=== PATIENT | female | born 1935 | race Caucasian/White ===

== ENCOUNTER → 2018-12-16 10:41 | Outpatient (CLI) | payer MEDICARE, OTHER, SELFPAY | PROVIDERS: PCP Nurse Practitioner Family; Visit Provider Nurse Practitioner Family | DX: R20.0 Anesthesia of skin (principal) | CPT/HCPCS: 95885; 95886; 95910 ==

== ENCOUNTER 2018-12-25 12:46 | Emergency (ER) | payer MEDICARE, SELFPAY ==
[2018-12-25 12:50] VITALS: BP 159/67; PULSE 78; RESP 16; TEMP 36.6; O2SAT 100
--- NOTE | 2018-12-25 13:26 | ED_ITS ---
HPI - Headache General Chief Complaint: Headache Stated Complaint: NUMBNESS IN LEGS/PRESSURE IN HEAD Time Seen by Provider: 12/25/18 13:03 Source: patient Mode of arrival: ambulatory Limitations: no limitations History of Present Illness HPI Narrative: Patient is an 82-year-old female who presents with a variety of complaints. She has had ongoing numbness in both of her legs for about 4 months. She saw neurologist 3 days ago who ordered an MRI which she is not sure when it scheduled. She was raking in the ER today she feels like the numbness in her right leg is worse. She has no weakness. She also has pressure on the right side of her head no actual pain. No visual difficulties no rash no weakness in her arms. Related Data Allergies Allergy/AdvReac Type Severity Reaction Status Date / Time [id number]-[id number]-Zwu Reductase AdvReac Intermediate Muscle Pain Verified 12/25/18 12:57 Inhibitor Review of Systems Review of Systems GENERAL: Denies chills, fatigue, malaise, fever, sweats, travel HEENT: Denies sinus pain, ear pain, sore throat, difficulty swallowing, neck pain RESPIRATORY: Denies dyspnea, cough, wheezing, hemoptysis, sputum. CARDIOVASCULAR: Denies chest pain, palpitations, orthopnea, edema GASTROINTESTINAL: Denies nausea, vomiting, abdominal pain, diarrhea, constipation, melena. : Denies dysuria, frequency, incontinence, hematuria, urinary retention, flank pain. MUSCULOSKELETAL: Denies weakness, joint pain, or bony pain SKIN: No rash, no erythema, no pruritus NEUROLOGIC: See HPI PSYCHIATRIC: No concerning psychosocial issues. 12 point review of systems is negative except for those stated above and HPI [facility] Medical History Leg numbness (Acute) Social History Smoking Status: Never smoker Social History Smoking Status: Never smoker Exam Initial Vital Signs Initial Vital Signs: Vital Signs Temperature 97.8 F 12/25/18 12:50 Pulse Rate 78 12/25/18 12:50 Respiratory Rate 16 12/25/18 12:50 Blood Pressure 159/67 H 12/25/18 12:50 Pulse Oximetry 100 12/25/18 12:50 GENERAL: Well-appearing, well-nourished and in no acute distress. HEENT: Head atraumatic, no rash no vesicles, EOMI, pupils reactive, face symmetric, moist mucous membranes CARDIOVASCULAR: Regular rate and rhythm without murmurs, rubs or gallops. RESPIRATORY: Breath sounds equal bilaterally, no wheezes rales or rhonchi. ABDOMEN: Soft, nontender. Normoactive bowel sounds all 4 quadrants. No guarding or rebound. EXTREMITIES: Normal range of motion, no clubbing or edema. Neurovascularly intact NEUROLOGICAL: Alert and oriented x4.Normal gait and speech. Cranial nerves II through XII grossly intact. Loan Originator strength equal bilaterally lower extremity strength equal. Some slight decreased sensation in her right leg SKIN: Warm, dry, no laceration, no petechiae, no rashes or lesions. Course Vital Signs - 8 hr 12/25/18 12:50 Temperature 97.8 F Pulse Rate 78 Respiratory Rate 16 Blood Pressure 159/67 H Pulse Oximetry 100 MDM - Headache MDM Narrative Medical decision making narrative: Patient offered head CT today. However she declined. Her symptoms seem to be chronic. Offered prednisone for neuropathy she declined that as well. She is going to wait for her MRI. At this time patient feels like she can go home. Discharge Plan Departure Patient Disposition: Home Clinical Impression: Neuropathy Discharge Date/Time: 12/25/18 13:39 Interventions: ED Discharge Assessment Last Done: 12/25/18 13:38 Instructions: Peripheral Neuropathy Activity Restrictions/Additional Instructions: *You have been diagnosed with neuropathy *What to do: At this time he likely need an outpatient MRI of her lumbar spine, your lower back, to evaluate the numbness in your legs. What for rash in your scalp. What you are feeling may be a precursor to shingles *Continue to take medications as directed \ *Follow up with your primary care provider in 2-3 days *Return to ER if you should have weakness in your extremities rash increased pain blurry vision difficulty speaking difficulty walking or any new, worsening or concerning symptoms Referrals: Cynthia Fuentes ARNP [Primary Care Provider] -
== END 2018-12-25 13:39 | disposition home or self-care (01) ==
PROVIDERS: Emergency Provider Emergency Medicine; PCP Nurse Practitioner Family
DX: G62.9 Polyneuropathy, unspecified (principal)
CPT/HCPCS: 99282

== ENCOUNTER → 2019-01-03 14:11 | Outpatient (CLI) | payer MEDICARE, SELFPAY ==
--- NOTE | 2019-01-03 | DI.MRI.S_ITS ---
PROCEDURE: MR LUMBAR SPINE WO CON INDICATIONS: Lumbar Radiculopathy TECHNIQUE: Noncontrast sagittal T1 spin echo and T2 fast echo, sagittal STIR, axial T1 and T2 fast spin echo through the lumbar spine. In cases with scoliosis, additional coronal T2 fast spin echo may be performed. COMPARISON: None. FINDINGS: Image quality: Mild artifact is noted at several levels including L5-S1. Alignment and Curvature: There is trace retrolisthesis of L1 on L2, L2 on L3, grade 1 anterolisthesis of L3 on L4 and trace anterolisthesis of L4 on L5. Schmorl's node in the superior endplate of L5 is noted with mild reactive change. Similar appearance is noted in the superior endplate of S1. Bone Marrow: Marrow is of normal overall signal. No acute vertebral body compression fractures. Spinal Cord: Conus medullaris terminates at the L2 level. Visualized cord demonstrates normal signal and size. Paraspinous Soft Tissues: No paravertebral masses. Discs: Severe desiccation is present at L4-5, mild to moderate remainder of the lumbar spine. L1-L2: Minimal disc bulge without spinal stenosis or foraminal narrowing. L2-L3: Mild disc bulge including a left foraminal component. No spinal stenosis. No foraminal narrowing. Mild facet and ligamentum flavum hypertrophy. L3-L4: Minimal disc bulge without spinal stenosis. Minimal left foraminal narrowing with facet and ligamentum flavum hypertrophy. L4-L5: Minimal disc bulge without spinal stenosis. Moderate left foraminal narrowing with facet and ligamentum flavum hypertrophy. L5-S1: Minimal disc bulge without spinal stenosis. Moderate to severe right foraminal narrowing with facet hypertrophy. IMPRESSION: 1. Foraminal narrowing is noted most prominent at L4-5 and L5-S1 secondary to anterolisthesis as well as facet arthropathy. 2. Multilevel minimal to mild disc bulges. No spinal stenosis. Dictated by: Shamika Mccarty M.D. on 01/03/2019 at 16:56 Approved by: Shamika Mccarty M.D. on 01/03/2019 at 17:01
== END ==
PROVIDERS: PCP Nurse Practitioner Family; Visit Provider Psychiatry & Neurology Neurology
DX: M54.16 Radiculopathy, lumbar region (principal); M47.816 Spondylosis without myelopathy or radiculopathy, lumbar region; M47.817 Spondylosis without myelopathy or radiculopathy, lumbosacral region; M48.061 Spinal stenosis, lumbar region without neurogenic claudication; M48.07 Spinal stenosis, lumbosacral region; M43.16 Spondylolisthesis, lumbar region
CPT/HCPCS: 72148

== ENCOUNTER → 2019-12-26 14:17 | Outpatient (CLI) | payer MEDICARE, SELFPAY | PROVIDERS: PCP Internal Medicine; Referring Provider Internal Medicine; Visit Provider Internal Medicine | DX: M81.0 Age-related osteoporosis without current pathological fracture (principal); Z78.0 Asymptomatic menopausal state; Z85.3 Personal history of malignant neoplasm of breast | CPT/HCPCS: 77080 ==

== ENCOUNTER → 2020-06-02 09:13 | Outpatient (CLI) | payer MEDICARE, SELFPAY ==
[2020-06-02 09:42] LABS: COVID19 -Nasal RAPID Negative (Negative)
== END ==
PROVIDERS: PCP Internal Medicine; Visit Provider Nurse Practitioner
DX: R09.81 Nasal congestion (principal); R53.81 Other malaise; R53.83 Other fatigue
CPT/HCPCS: 87635

== ENCOUNTER 2020-06-07 09:38 | Emergency (ER) | payer MEDICARE, SELFPAY ==
[2020-06-07] VITALS (21 sets, daily range): BP systolic 107–149; BP diastolic 55–75; PULSE 48–78; RESP 16–18; TEMP 37.1; O2SAT 84–100; BMI 20.5
--- NOTE | 2020-06-07 09:57 | ED.HA ---
HPI - Headache General Chief Complaint: Headache Stated Complaint: 2 weeks, swelling/body aches/headache Time Seen by Provider: 06/07/20 09:49 Source: patient and family Mode of arrival: Ambulatory Limitations: no limitations History of Present Illness HPI Narrative: Who presents with confusion and headache. She is here with her daughter. Daughter states she lives by herself and is usually quite sharp over the last few days there been a definite increase in confusion. The patient describes ?booming headache off and on for about 2 weeks. It is scattered all over her head. It is controlled with Tylenol and ibuprofen. She denies any sensitivity to light no visual changes no nausea or vomiting. No neck pain. She has also had some very mild low-grade fever of 100.2 she denies any neck pain. She also complains of extreme fatigue. She had a COVID-19 test 5 days ago which was negative. MD Complaint: headache Onset (ago): week(s) (2) Severity: moderate Quality: aching and throbbing Relieving factors: nothing and NSAIDs Related Data Home Medications Medication Instructions Recorded Confirmed No Known Home Medications 06/02/20 06/02/20 Allergies Allergy/AdvReac Type Severity Reaction Status Date / Time Izdykxg-Tgw-Yyi Reductase AdvReac Intermediate Muscle Pain Verified 06/07/20 09:53 Inhibitor Review of Systems Review of Systems ROS Unobtainable: All systems reviewed & are unremarkable except as noted in HPI and below Constitutional Constitutional: Reports as per HPI, Reports body ache(s), Reports fatigue, Reports fever(s), Reports headache(s) and Reports poor appetite Eyes Eyes: Denies change in vision, Denies eye discharge, Denies irritation and Denies loss of vision ENT Ears, Nose, Mouth, and Throat: Denies vertigo, Denies dizziness and Reports headache(s) Cardiovascular Cardiovascular: Denies chest pain, Denies dyspnea and Denies dyspnea on exertion Respiratory Respiratory: Denies cough, Denies dyspnea, Denies dyspnea on exertion and Denies wheezing Gastrointestinal Gastrointestinal: Denies abdominal pain, Denies change in bowel habits, Denies diarrhea, Denies nausea and Denies vomiting Musculoskeletal Musculoskeletal: Denies back pain, Reports myalgias, Denies arthralgias and Denies numbness Integumentary/Breasts Skin/Breast: Denies pruritus, Denies erythema, Denies rash and Denies wounds Neurologic Neurologic: Denies vertigo, Denies dizziness, Reports headache(s), Denies loss of vision and Denies numbness Endocrine Endocrine: Reports fatigue Allergic/Immunologic Allergic/Immunologic: Denies wheezing Patient History Medical History (Updated 06/07/20 @ 16:39 by Carmita Butterfield DO) Leg numbness Social History Smoking Status: Never smoker Smoking Status: Never smoker alcohol intake frequency: 0-2 drinks per day Substance Use Type: does not use Exam Initial Vital Signs Initial Vital Signs: Vital Signs Pulse Rate 73 06/07/20 09:49 Pulse Oximetry 98 06/07/20 09:49 GENERAL: Pleasant alert 84-year-old female and in [no acute] distress. HEENT: Head atraumatic,EOMI, pupils reactive, face symmetric, [moist] mucous membranes NECK: Negative Kernig and Brudzinski's no meningeal signs CARDIOVASCULAR: Regular rate and rhythm without murmurs, rubs or gallops. RESPIRATORY: Breath sounds equal bilaterally, no wheezes rales or rhonchi. ABDOMEN: Soft, nontender. Normoactive bowel sounds all 4 quadrants. No guarding or rebound. EXTREMITIES: Normal range of motion, no clubbing or edema. Neurovascularly intact NEUROLOGICAL: Alert and oriented x3.Normal gait and speech. Cranial nerves II through XII grossly intact. Turner In strength equal bilaterally. Patient does seem to be confused about some things and refers to her daughter frequently during questioning SKIN: Warm, dry, no laceration, no petechiae, no rashes or lesions. Procedures Lumbar Puncture Time Out Performed: Yes Patient Position: upright Skin Prep: Povidone-Iodine 1% and 0.5% Chlorhexidine/Alcohol Local Anesthetic: lidocaine 1% Amount of anesthesia used (mL): 3 Spinal Needle Gauge: 22G Interspace Used: L4-L5 Fluid Initially Obtained: clear Complications: none Scores NIH Stroke Scale Level of Conciousness: Alert, keenly responsive Ask month/age: Answers both questions correctly. Open/close eyes, close hand: Performs both tasks correctly Best gaze horizontal: Normal Visual garza: No visual loss Facial palsy: Normal symetrical movement Left arm drift: No drift for full 10 sec Right arm drift: No drift for full 10 sec Left leg drift: No drift for full 5 sec Right leg drift: No drift for full 5 sec Limb ataxia: Absent Sensory on face/arms/legs: Normal, no sensory loss Best language: No aphasia, normal Dysarthria: Normal Extinction or inattention: No abnormality Total NIH Stroke scale score: 0 Course Orders Ordered: ED Orders 06/07/20 10:28 COVID19 Stat 06/07/20 10:55 Urinalysis and Microscopic Stat Urine Culture Stat 06/07/20 11:36 Blood Culture Stat 06/07/20 15:00 CSF culture Stat Cell Count w Diff CSF Routine Cell Count w Diff CSF Stat Glucose CSF Stat Meningitis Panel (Film Array) Stat Total Protein CSF Stat Discontinued Medications Sodium Chloride (Normal Saline 0.9%) 1,000 mls @ 1,000 mls/hr IV CONT BABITA Last Infusion: 06/07/20 12:42 Dose: 0 mls/hr Documented by: Admin: 06/07/20 10:20 Dose: 1,000 mls/hr Documented by: SEVEN Ketorolac Tromethamine (Ketorolac 60 Mg/2 Ml Vial) 15 mg IV NOW ONE Stop: 06/07/20 11:53 Last Admin: 06/07/20 12:42 Dose: 15 mg Documented by: VANITA Vital Signs Vital signs: Vital Signs - 8 hr 06/07/20 11:30 06/07/20 12:00 06/07/20 12:30 Pulse Rate 63 62 Respiratory Rate Blood Pressure 112/59 L 124/61 Pulse Oximetry 99 100 100 06/07/20 14:16 06/07/20 14:17 06/07/20 14:30 Pulse Rate 48 L 56 L 56 L Respiratory Rate Blood Pressure 146/73 H 140/63 Pulse Oximetry 84 L 98 98 06/07/20 14:55 06/07/20 14:56 06/07/20 15:00 Pulse Rate 78 68 62 Respiratory Rate Blood Pressure 140/75 139/65 Pulse Oximetry 97 98 100 06/07/20 15:30 06/07/20 16:00 06/07/20 16:01 Pulse Rate 62 70 74 Respiratory Rate Blood Pressure 128/68 Pulse Oximetry 93 98 97 06/07/20 16:02 06/07/20 16:50 Pulse Rate 70 Respiratory Rate 16 Blood Pressure 149/67 H 149/67 H Pulse Oximetry 100 MDM - Headache Lab Data Attestation: I reviewed the patient's lab results. Result diagrams: 06/07/20 10:10 06/07/20 10:10 Labs: Lab Results 06/07/20 06/07/20 06/07/20 Range/Units 10:10 10:10 10:10 WBC 7.3 (4.5-11.0) X10^3/uL RBC 3.96 L (4.0-5.2) X10^6/uL Hgb 12.2 (12.0-16.0) g/dL Hct 36.5 (36-46) % MCV 92.1 (80-100) fL MCH 30.7 (26-34) PG MCHC 33.4 (30-36) % RDW 13.3 (11.6-14.8) % Plt Count 274 (150-400) X10^3/uL Neut % (Auto) 84.9 H (50-75) % Lymph % (Auto) 7.4 L (25-40) % [place] % (Auto) 5.7 (3-14) % Eos % (Auto) 1.8 L (2-4) % Baso % (Auto) 0.2 (0-2) % Neut # (Auto) 6200 (5928-6130) /uL Lymph # (Auto) 500 L (2111-2744) /uL [place] # (Auto) 400 (0-900) /uL Eos # (Auto) 100 (0-450) /uL Baso # (Auto) 0 (0-100) /uL Sodium 138 (137-145) mmol/L Potassium 4.8 (3.4-5.1) mmol/L Chloride 106 (98-107) mmol/L Carbon Dioxide 26 (22-32) mmol/L BUN 19 H (7-17) mg/dL Creatinine 0.98 (0.52-1.04) mg/dL Estimated GFR 54.1 L (>60) mL/min BUN/Creatinine Ratio 19.4 (6-22) Glucose 138 H (80-110) mg/dL Lactate (0.7-2.1) mmol/L Calcium 9.5 (8.4-10.2) mg/dL Total Bilirubin 0.4 (0.2-1.3) mg/dL AST 22 (14-36) IU/L ALT 19 (<35) IU/L Alkaline Phosphatase 81 (38-126) U/L Total Protein 6.7 (6.3-8.2) g/dL Albumin 3.8 (3.5-5.0) g/dL Globulin 2.9 (1.7-4.1) g/dL Albumin/Globulin Ratio 1.3 (1.0-2.8) Procalcitonin 0.23 (<0.5) ng/mL Urine Color Urine Appearance Urine pH (4.5-8.0) Ur Specific [place] (1.000-1.035) Urine Protein (Negative) Urine Glucose (UA) (Negative) g/dL Urine Ketones (NEGATIVE) Urine Occult Blood (Negative) Urine Nitrate (Negative) Urine Bilirubin (NEGATIVE) Urine Urobilinogen (0.2) E.U./dL Ur Leukocyte Esterase (NEGATIVE) Urine RBC (0-5/HPF) Urine WBC (0-5/HPF) Ur Squamous Epith Cells (0-5/HPF) Urine Bacteria (None) Hyaline Casts (None) Ur Culture Indicated? CSF Tube Number CSF Volume CSF Appearance (Clear) CSF Color (Colorless) CSF WBC (0-5) MONO/uL CSF RBC RBC /uL CSF Mononuclear WBCs % CSF Polynuclear WBCs % CSF Glucose (40-70) mg/dL CSF Total Protein (12-60) mg/dL CSF C.neoform/gat PCR (Not Detect) CSF CMV DNA (PCR) (Not Detect) CSF Enterovirus (PCR) (Not Detect) CSF E. coli (PCR) (Not Detect) CSF H. influenzae (PCR) (Not Detect) CSF HSV I (PCR) (Not Detect) CSF HSV II (PCR) (Not Detect) CSF HHV 6 (PCR) (Not Detect) CSF L.monocytogenes PCR (Not Detect) CSF N. meningitidis PCR (Not Detect) CSF Parechovirus (PCR) (Not Detect) CSF S. agalactiae (PCR) (Not Detect) CSF S. pneumoniae (PCR) (Not Detect) CSF VZV (PCR) (Not Detecte) SARS-CoV-2 (PCR) (Negative) 06/07/20 06/07/20 06/07/20 Range/Units 10:10 10:28 10:55 WBC (4.5-11.0) X10^3/uL RBC (4.0-5.2) X10^6/uL Hgb (12.0-16.0) g/dL Hct (36-46) % MCV (80-100) fL MCH (26-34) PG MCHC (30-36) % RDW (11.6-14.8) % Plt Count (150-400) X10^3/uL Neut % (Auto) (50-75) % Lymph % (Auto) (25-40) % [place] % (Auto) (3-14) % Eos % (Auto) (2-4) % Baso % (Auto) (0-2) % Neut # (Auto) (5852-8274) /uL Lymph # (Auto) (9785-9404) /uL [place] # (Auto) (0-900) /uL Eos # (Auto) (0-450) /uL Baso # (Auto) (0-100) /uL Sodium (137-145) mmol/L Potassium (3.4-5.1) mmol/L Chloride (98-107) mmol/L Carbon Dioxide (22-32) mmol/L BUN (7-17) mg/dL Creatinine (0.52-1.04) mg/dL Estimated GFR (>60) mL/min BUN/Creatinine Ratio (6-22) Glucose (80-110) mg/dL Lactate 1.9 (0.7-2.1) mmol/L Calcium (8.4-10.2) mg/dL Total Bilirubin (0.2-1.3) mg/dL AST (14-36) IU/L ALT (<35) IU/L Alkaline Phosphatase (38-126) U/L Total Protein (6.3-8.2) g/dL Albumin (3.5-5.0) g/dL Globulin (1.7-4.1) g/dL Albumin/Globulin Ratio (1.0-2.8) Procalcitonin (<0.5) ng/mL Urine Color Yellow Urine Appearance Clear Urine pH 5.0 (4.5-8.0) Ur Specific [place] 1.020 (1.000-1.035) Urine Protein Negative (Negative) Urine Glucose (UA) Negative (Negative) g/dL Urine Ketones Negative (NEGATIVE) Urine Occult Blood Negative (Negative) Urine Nitrate Negative (Negative) Urine Bilirubin Negative (NEGATIVE) Urine Urobilinogen 0.2 (0.2) E.U./dL Ur Leukocyte Esterase Trace H (NEGATIVE) Urine RBC None seen (0-5/HPF) Urine WBC 1-5/hpf (0-5/HPF) Ur Squamous Epith Cells 1-5 /hpf (0-5/HPF) Urine Bacteria Few (2-10) H (None) Hyaline Casts 1-5/lpf (None) Ur Culture Indicated? Specimen cultured CSF Tube Number CSF Volume CSF Appearance (Clear) CSF Color (Colorless) CSF WBC (0-5) MONO/uL CSF RBC RBC /uL CSF Mononuclear WBCs % CSF Polynuclear WBCs % CSF Glucose (40-70) mg/dL CSF Total Protein (12-60) mg/dL CSF C.neoform/gat PCR (Not Detect) CSF CMV DNA (PCR) (Not Detect) CSF Enterovirus (PCR) (Not Detect) CSF E. coli (PCR) (Not Detect) CSF H. influenzae (PCR) (Not Detect) CSF HSV I (PCR) (Not Detect) CSF HSV II (PCR) (Not Detect) CSF HHV 6 (PCR) (Not Detect) CSF L.monocytogenes PCR (Not Detect) CSF N. meningitidis PCR (Not Detect) CSF Parechovirus (PCR) (Not Detect) CSF S. agalactiae (PCR) (Not Detect) CSF S. pneumoniae (PCR) (Not Detect) CSF VZV (PCR) (Not Detecte) SARS-CoV-2 (PCR) Negative (Negative) 06/07/20 06/07/20 06/07/20 Range/Units 15:00 15:00 15:00 WBC (4.5-11.0) X10^3/uL RBC (4.0-5.2) X10^6/uL Hgb (12.0-16.0) g/dL Hct (36-46) % MCV (80-100) fL MCH (26-34) PG MCHC (30-36) % RDW (11.6-14.8) % Plt Count (150-400) X10^3/uL Neut % (Auto) (50-75) % Lymph % (Auto) (25-40) % [place] % (Auto) (3-14) % Eos % (Auto) (2-4) % Baso % (Auto) (0-2) % Neut # (Auto) (9938-4049) /uL Lymph # (Auto) (4191-5302) /uL [place] # (Auto) (0-900) /uL Eos # (Auto) (0-450) /uL Baso # (Auto) (0-100) /uL Sodium (137-145) mmol/L Potassium (3.4-5.1) mmol/L Chloride (98-107) mmol/L Carbon Dioxide (22-32) mmol/L BUN (7-17) mg/dL Creatinine (0.52-1.04) mg/dL Estimated GFR (>60) mL/min BUN/Creatinine Ratio (6-22) Glucose (80-110) mg/dL Lactate (0.7-2.1) mmol/L Calcium (8.4-10.2) mg/dL Total Bilirubin (0.2-1.3) mg/dL AST (14-36) IU/L ALT (<35) IU/L Alkaline Phosphatase (38-126) U/L Total Protein (6.3-8.2) g/dL Albumin (3.5-5.0) g/dL Globulin (1.7-4.1) g/dL Albumin/Globulin Ratio (1.0-2.8) Procalcitonin (<0.5) ng/mL Urine Color Urine Appearance Urine pH (4.5-8.0) Ur Specific [place] (1.000-1.035) Urine Protein (Negative) Urine Glucose (UA) (Negative) g/dL Urine Ketones (NEGATIVE) Urine Occult Blood (Negative) Urine Nitrate (Negative) Urine Bilirubin (NEGATIVE) Urine Urobilinogen (0.2) E.U./dL Ur Leukocyte Esterase (NEGATIVE) Urine RBC (0-5/HPF) Urine WBC (0-5/HPF) Ur Squamous Epith Cells (0-5/HPF) Urine Bacteria (None) Hyaline Casts (None) Ur Culture Indicated? CSF Tube Number 4 1 CSF Volume 1.0 ml 0.25 ml CSF Appearance Clear Clear (Clear) CSF Color Colorless Colorless (Colorless) CSF WBC 38 H 75 H (0-5) MONO/uL CSF RBC 0 30 RBC /uL CSF Mononuclear WBCs 83 89 % CSF Polynuclear WBCs 17 11 % CSF Glucose 49 (40-70) mg/dL CSF Total Protein 99 H (12-60) mg/dL CSF C.neoform/gat PCR Not detected (Not Detect) CSF CMV DNA (PCR) Not detected (Not Detect) CSF Enterovirus (PCR) Not detected (Not Detect) CSF E. coli (PCR) Not detected (Not Detect) CSF H. influenzae (PCR) Not detected (Not Detect) CSF HSV I (PCR) Not detected (Not Detect) CSF HSV II (PCR) Not detected (Not Detect) CSF HHV 6 (PCR) Not detected (Not Detect) CSF L.monocytogenes PCR Not detected (Not Detect) CSF N. meningitidis PCR Not detected (Not Detect) CSF Parechovirus (PCR) Not detected (Not Detect) CSF S. agalactiae (PCR) Not detected (Not Detect) CSF S. pneumoniae (PCR) Not detected (Not Detect) CSF VZV (PCR) Not detected (Not Detecte) SARS-CoV-2 (PCR) (Negative) Imaging Data Chest x-ray: Radiologist's Impression: PROCEDURE: XR CHEST 1V INDICATIONS: confusion fever TECHNIQUE: One view of the chest was acquired. COMPARISON: [facility], CT, CT HEAD/BRAIN WO CON, 06/07/2020, 10:52. [facility], , CHEST 2 VIEW, 01/13/2008, 15:46. FINDINGS: Surgical changes and devices: Left breast clips are seen. Lungs and pleura: Lungs are clear. No pleural effusions or pneumothorax. Mediastinum: The cardiac contours are within normal limits. The aorta demonstrates calcification and tortuosity. Bones and chest wall: No suspicious bony lesions. Age-appropriate bony degenerative changes are seen. Overlying soft tissues appear unremarkable. IMPRESSION: Portable chest within normal limits for age. Dictated by: David Cantrell M.D. on 06/07/2020 at 10:16 CT scan - head: Radiologist's Impression: PROCEDURE: CT HEAD/BRAIN WO CON INDICATIONS: confusion headache TECHNIQUE: Noncontrast 4.5 mm thick angled axial sections acquired from the foramen magnum to the vertex, with coronal and sagittal reformats. For radiation dose reduction, the following was used: automated exposure control, adjustment of mA and/or kV according to patient size. COMPARISON: [facility], CR, XR CHEST 1V, 06/07/2020, 10:59. FINDINGS: Image quality: Excellent. CSF spaces: Basal cisterns are patent. No extra-axial fluid collections. The ventricles are symmetric in size and shape. Brain: No intracranial bleeds or masses. There is cerebral volume loss for age, with resultant ventricular and sulcal prominence. There are periventricular and deep white matter chronic small vessel ischemic changes. There is intracranial internal carotid artery atherosclerosis. Skull and face: Calvarium and visualized facial bones appear intact, without suspicious lesions. Sinuses: Visualized sinuses and mastoids are clear. IMPRESSION: Unremarkable intracranial study for age, with note made of brain parenchymal volume loss and chronic small vessel ischemic change. No acute intracranial hemorrhage is seen. Dictated by: David Cantrell M.D. on 06/07/2020 at 10:15 MDM Narrative Medical decision making narrative: Patient overall appears well but she is confused heart of this is baseline daughter states that this is not baseline. She has had headache low-grade fever her urine is sent for culture but she has no signs or symptoms of UTI. With ongoing headache off and on for the last 1-2 weeks with low-grade fever discussed with lumbar puncture. Both patient and daughter are agreeable. LP is negative. At this time possible and likely viral syndrome no need for antibiotics. She is not septic. Recommend close follow-up and return if worsening confusion Discharge Plan Departure Patient Disposition: Home Clinical Impression: Acute viral syndrome Instructions: DI for Viral Syndrome Activity Restrictions/Additional Instructions: *You have been diagnosed with viral syndrome *What to do: Increase fluid intake as tolerated, please follow-up with primary care provider no indication for antibiotics at this time. However your urine is pending at this time I will wait for culture before starting on antibiotics *Continue to take medications as directed *Follow up with your primary care provider in 2-3 days *Return to ER if you should have worsening fever, worsening confusion or any new, worsening or concerning symptoms Prescriptions: No Action No Known Home Medications RF: 0 Referrals: Anayeli Villarreal ARNP [Primary Care Provider] -
--- NOTE | 2020-06-07 10:05 | DI.RAD.S_ITS ---
PROCEDURE: XR CHEST 1V INDICATIONS: confusion fever TECHNIQUE: One view of the chest was acquired. COMPARISON: [facility], CT, CT HEAD/BRAIN WO CON, 06/07/2020, 10:52. [facility], CR, CHEST 2 VIEW, 01/13/2008, 15:46. FINDINGS: Surgical changes and devices: Left breast clips are seen. Lungs and pleura: Lungs are clear. No pleural effusions or pneumothorax. Mediastinum: The cardiac contours are within normal limits. The aorta demonstrates calcification and tortuosity. Bones and chest wall: No suspicious bony lesions. Age-appropriate bony degenerative changes are seen. Overlying soft tissues appear unremarkable. IMPRESSION: Portable chest within normal limits for age. Dictated by: David Cantrell M.D. on 06/07/2020 at 10:16 Approved by: David Cantrell M.D. on 06/07/2020 at 10:17
--- NOTE | 2020-06-07 10:05 | DI.CT.S_ITS ---
PROCEDURE: CT HEAD/BRAIN WO CON INDICATIONS: confusion headache TECHNIQUE: Noncontrast 4.5 mm thick angled axial sections acquired from the foramen magnum to the vertex, with coronal and sagittal reformats. For radiation dose reduction, the following was used: automated exposure control, adjustment of mA and/or kV according to patient size. COMPARISON: [facility], CR, XR CHEST 1V, 06/07/2020, 10:59. FINDINGS: Image quality: Excellent. CSF spaces: Basal cisterns are patent. No extra-axial fluid collections. The ventricles are symmetric in size and shape. Brain: No intracranial bleeds or masses. There is cerebral volume loss for age, with resultant ventricular and sulcal prominence. There are periventricular and deep white matter chronic small vessel ischemic changes. There is intracranial internal carotid artery atherosclerosis. Skull and face: Calvarium and visualized facial bones appear intact, without suspicious lesions. Sinuses: Visualized sinuses and mastoids are clear. IMPRESSION: Unremarkable intracranial study for age, with note made of brain parenchymal volume loss and chronic small vessel ischemic change. No acute intracranial hemorrhage is seen. Dictated by: David Cantrell M.D. on 06/07/2020 at 10:15 Approved by: David Cantrell M.D. on 06/07/2020 at 10:16
[2020-06-07] MEDS: SODIUM CHLORIDE 0.9% 1,000 ML 1000 ML IV (10:20)
[2020-06-07 10:46] LABS: COVID19 -Nasal RAPID Negative (Negative)
[2020-06-07 10:46] LABS: Add Manual Diff / Slide Review NO; Basophils Absolute Auto 0 /uL (0-100); Basophils Percent Auto 0.2 % (0-2); Eosinophils Absolute Auto 100 /uL (0-450); Eosinophils Percent Auto 1.8 % (2-4); Hematocrit 36.5 % (36-46); Hemoglobin 12.2 g/dL (12.0-16.0); Lymphocytes Absolute Auto 500 /uL (1100-4500); Lymphocytes Percent Auto 7.4 % (25-40); Mean Corpuscular HGB Conc 33.4 % (30-36); Mean Corpuscular Hemoglobin 30.7 PG (26-34); Mean Corpuscular Volume 92.1 fL (80-100); Monocytes Absolute Auto 400 /uL (0-900); Monocytes Percent Auto 5.7 % (3-14); Neutrophils Absolute Auto 6200 /uL (1500-7000); Neutrophils Percent Auto 84.9 % (50-75); Platelet Count 274 X10^3/uL (150-400); Red Blood Cell Count 3.96 X10^6/uL (4.0-5.2); Red Cell Distribution Width 13.3 % (11.6-14.8); White Blood Cell Count 7.3 X10^3/uL (4.5-11.0)
[2020-06-07 10:55] LABS: Lactate (Lactic Acid) 1.9 mmol/L (0.7-2.1)
[2020-06-07 10:56] LABS: Alanine Aminotransferase 19 IU/L (<35); Albumin 3.8 g/dL (3.5-5.0); Albumin Globulin Ratio 1.3 (1.0-2.8); Alkaline Phosphatase 81 U/L (38-126); Aspartate Aminotransferase 22 IU/L (14-36); BUN Creatinine Ratio 19.4 (6-22); Bilirubin Total 0.4 mg/dL (0.2-1.3); Blood Urea Nitrogen 19 mg/dL (7-17); Calcium 9.5 mg/dL (8.4-10.2); Carbon Dioxide 26 mmol/L (22-32); Chloride 106 mmol/L (98-107); Estimated Glomerular Filt Rate 54.1 mL/min (>60); Globulin 2.9 g/dL (1.7-4.1); Glucose 138 mg/dL (80-110); HEMOLYSIS < 15 (0-50); Potassium 4.8 mmol/L (3.4-5.1); Sodium 138 mmol/L (137-145); Total Protein 6.7 g/dL (6.3-8.2)
[2020-06-07 11:03] LABS: RBC Urine None Seen (0-5/HPF)
[2020-06-07 11:05] LABS: Appearance Urine UA CLEAR; Bilirubin Urine UA NEGATIVE (NEGATIVE); Color Urine UA YELLOW; Glucose Urine UA NEGATIVE (Negative); Ketones Urine UA NEGATIVE (NEGATIVE); Leukocyte Esterase Urine UA TRACE (NEGATIVE); Nitrite Urine UA NEGATIVE (Negative); Occult Blood Urine UA NEGATIVE (Negative); Protein Urine UA NEGATIVE (Negative); Urobilinogen Urine UA 0.2 E.U./dL (0.2)
[2020-06-07 11:30] LABS: Bacteria Urine Few (2-10); Culture Indicated Urine Specimen Cultured; Hyaline Casts Urine 1-5/LPF; Squamous Epithelial Cell Urine 1-5 /HPF (0-5/HPF); WBC Urine 1-5/HPF (0-5/HPF)
[2020-06-07 11:41] LABS: Procalcitonin 0.23 ng/mL (<0.5)
[2020-06-07] MEDS: KETOROLAC 60 MG/2 ML VIAL 15 MG IV (12:42)
[2020-06-07 15:23] LABS: Glucose CSF 49 mg/dL (40-70); Total Protein CSF 99 mg/dL (12-60)
[2020-06-07 15:36] LABS: Appearance CSF Clear (Clear); CSF Tube Number 4; CSF Tube Volume 1.0 mL; Color CSF Colorless (Colorless); Red Blood Cell CSF 0 RBC /uL; White Blood Cell CSF 38 MONO/uL (0-5)
[2020-06-07 15:37] LABS: Appearance CSF Clear (Clear); CSF Tube Number 1; CSF Tube Volume 0.25 mL; Color CSF Colorless (Colorless); Red Blood Cell CSF 30 RBC /uL; White Blood Cell CSF 75 MONO/uL (0-5)
[2020-06-07 15:53] LABS: Mononuclear WBC CSF 83 %; Mononuclear WBC CSF 89 %; Polynuclear WBC CSF 11 %; Polynuclear WBC CSF 17 %
[2020-06-07 16:27] LABS: Cryptococcus neoformans/gattii Not Detected (Not Detect); Enterovirus Not Detected (Not Detect); Escherichia coli K1 Not Detected (Not Detect); Haemophilus influenzae Not Detected (Not Detect); Herpes simplex virus 1 Not Detected (Not Detect); Herpes simplex virus 2 Not Detected (Not Detect); Human herpesvirus 6 Not Detected (Not Detect); Human parechovirus Not Detected (Not Detect); Listeria monocytogenes Not Detected (Not Detect); Neisseria meningitidis Not Detected (Not Detect); Streptococcus agalactiae Not Detected (Not Detect); Streptococcus pneumoniae Not Detected (Not Detect); Varicella Zoster Virus Not Detected (Not Detecte)
== END 2020-06-07 17:00 | disposition home or self-care (01) ==
PROVIDERS: Emergency Provider Emergency Medicine; PCP Internal Medicine
DX: B34.9 Viral infection, unspecified (principal); R41.0 Disorientation, unspecified; R51.9 Headache, unspecified; R50.9 Fever, unspecified; R53.83 Other fatigue; Z20.822 Contact with and (suspected) exposure to COVID-19
CPT/HCPCS: 36415; 62270; 70450; 71045; 80053; 81001; 82945; 83605; 84145; 84157; 85025; 87040; 87070; 87086; 87205; 87635; 87798; 89051; 96361; 96374; 99284; C9803; J1885

== ENCOUNTER → 2020-06-13 08:41 | Outpatient (CLI) | payer MEDICARE, SELFPAY ==
--- NOTE | 2020-06-13 | DI.MRI.S_ITS ---
PROCEDURE: MR STROKE Pre- and post-contrast brain MRI, non-contrast brain MR angiogram, pre- and postcontrast neck MR angiogram INDICATIONS: Transient alteration of awareness TECHNIQUE: Brain: Noncontrast axial T1 spin echo, axial T2 fast spin echo, sagittal and axial FLAIR, coronal T2 fast spin echo, axial gradient echo, axial diffusion and ADC through the brain. After the administration of contrast, axial 3D VIBE of the cranial vasculature and brain. Brain MRA: Non-contrast 3-D time of flight MR angiogram, with multiple gscvrvz-klajdbpld-wtwaidkata (MIP) reformats performed. Neck MRA: Axial and sagittal TruFISP through the neck. Coronal dynamic MR angiogram during administration of contrast in the arterial and venous phases, with 3-dimenstional neicuds-zdfvsfped-ltcphkgdds (MIP) reformats constructed from subtraction images. COMPARISON: None. FINDINGS: Image quality: This examination is limited by involuntary motion artifact. BRAIN: CSF spaces: Ventricles are normal in size and shape. Basal cisterns are patent. No extra-axial fluid collections. Brain: No intracranial bleeds or mass effects. Young-white matter interface is normal. Brain parenchymal volume loss is seen. Relatively prominent chronic small vessel ischemic change can be seen. Diffusion weighted images show no acute ischemic insults. Brainstem appears normal. Normal intravascular flow voids are present. No abnormal intracranial enhancement. Skull and face: Calvarial marrow signal is normal. Orbits appear normal. Note is made of bilateral lens replacements. Sinuses: Sinuses and mastoids are clear. BRAIN MR ANGIOGRAM: Anterior circulation: Intracranial internal carotid arteries are normal in size and enhancement. The flow within the paired anterior cerebral arteries is normal and symmetric. The flow within the middle cerebral arteries is normal and symmetric. The anterior communicating artery is seen. No stenoses, occlusions, or aneurysms. Posterior circulation: The right vertebral artery is robust and tortuous. The left V4 segment is narrowed. There is a normal appearing basilar artery. The flow within the posterior cerebral arteries is normal and symmetric. No stenoses, occlusions, or aneurysms. NECK MR ANGIOGRAM: Carotids: Great vessels demonstrate a conventional anatomy as they arise from the aortic arch. The origins of the common carotid arteries appear patent. The calibers and courses of both common carotid arteries are normal. The bifurcation regions appear normal bilaterally. The internal carotid arteries demonstrate normal caliber. Tortuosity can be seen of the internal carotid arteries. Posterior circulation: Portions of the left proximal vertebral artery are not well seen. More superior portions of both vertebral arteries demonstrate normal course. The right vertebral artery is dominant to the left. The right vertebral artery is tortuous distally. Miscellaneous: Subclavian arteries appear patent. Pre-contrast images through the neck show no soft tissue abnormalities. IMPRESSION: BRAIN MRI: No findings of acute or subacute infarction can be seen. Brain parenchymal volume loss and relates of the prominent chronic small vessel ischemic change can be seen. No masses or abnormal enhancement can be seen. BRAIN MR ANGIOGRAM: No significant intracranial arterial abnormality is seen. NECK MR ANGIOGRAM: The left distal V4 segment is narrowed, which may be congenital. Portions of the left proximal vertebral artery are not well seen. There is tortuosity of the internal carotid arteries. Dictated by: David Cantrell M.D. on 06/13/2020 at 8:37 Approved by: David Cantrell M.D. on 06/13/2020 at 8:53
== END ==
PROVIDERS: PCP Internal Medicine; Referring Provider Internal Medicine; Visit Provider Internal Medicine
DX: R40.4 Transient alteration of awareness (principal); R53.1 Weakness; G62.9 Polyneuropathy, unspecified
CPT/HCPCS: 70548; 70553

== ENCOUNTER → 2020-06-20 08:10 | Outpatient (CLI) | payer MEDICARE, SELFPAY ==
--- NOTE | 2020-06-20 | DI.US.S_ITS ---
PROCEDURE: US CAROTID DOPPLER BI INDICATIONS: STENOSIS TECHNIQUE: Color and pulse Doppler interrogation was performed of both carotid systems, with image documentation and velocity measurements. COMPARISON: [facility], MR, MR STROKE, 06/13/2020, 8:52. FINDINGS: Stenosis calculations are based on SRU (Society of Radiologists in Ultrasound) criteria. The flow velocities and the arterial waveforms are normal within both carotid arterial systems. Atherosclerotic plaque is seen on both sides. The estimated degree of internal carotid artery stenosis is less than 50%. Antegrade flow is confirmed within both vertebral arteries. IMPRESSION: No hemodynamically significant stenosis is seen. Atherosclerotic plaque is noted bilaterally. Dictated by: David Cantrell M.D. on 06/20/2020 at 10:06 Approved by: David Cantrell M.D. on 06/20/2020 at 10:07
== END ==
PROVIDERS: PCP Internal Medicine; Referring Provider Internal Medicine; Visit Provider Internal Medicine
DX: I65.23 Occlusion and stenosis of bilateral carotid arteries (principal); I77.9 Disorder of arteries and arterioles, unspecified; R79.82 Elevated C-reactive protein (CRP)
CPT/HCPCS: 93880

== ENCOUNTER → 2020-06-21 10:20 | Outpatient (ROUT) | payer MEDICARE, SELFPAY ==
[2020-06-21 10:43] LABS: BUN Creatinine Ratio 22.8 (6-22); Blood Urea Nitrogen 18 mg/dL (7-17); C-Reactive Protein Quant 0.9 mg/dL (<1.0); Calcium 9.5 mg/dL (8.4-10.2); Carbon Dioxide 31 mmol/L (22-32); Chloride 100 mmol/L (98-107); Estimated Glomerular Filt Rate > 60.0 mL/min (>60); Glucose 135 mg/dL (80-110); HEMOLYSIS < 15 (0-50); Potassium 4.8 mmol/L (3.4-5.1); Sodium 135 mmol/L (137-145)
[2020-06-21 10:49] LABS: Erythrocyte Sedimentation Rate 14 MM/HR (0-20)
[2020-06-21 11:16] LABS: Hemoglobin A1C% w Est Avg Glu 5.8 % (4.0-6.0)
== END ==
PROVIDERS: PCP Internal Medicine; Visit Provider Internal Medicine
DX: R79.82 Elevated C-reactive protein (CRP) (principal); R53.1 Weakness; R60.9 Edema, unspecified
CPT/HCPCS: 80048; 83036; 85651; 86140

== ENCOUNTER → 2020-07-19 12:41 | Outpatient (ROUT) | payer MEDICARE, SELFPAY ==
[2020-07-19 13:16] LABS: Troponin I 0.014 ng/mL (0.01-0.034)
== END ==
PROVIDERS: PCP Internal Medicine; Visit Provider Student in an Organized Health Care Education/Training Program
DX: R06.02 Shortness of breath (principal)
CPT/HCPCS: 84484

== ENCOUNTER → 2020-08-13 13:25 | Outpatient (CLI) | payer MEDICARE, SELFPAY ==
[2020-08-13 17:39] LABS: COVID19 -Nasal RAPID Negative (Negative)
== END ==
PROVIDERS: PCP Internal Medicine; Visit Provider Physician Assistant
DX: Z20.822 Contact with and (suspected) exposure to COVID-19 (principal)
CPT/HCPCS: 87635; C9803

== ENCOUNTER → 2020-08-15 07:48 | Outpatient (CLI) | payer MEDICARE, SELFPAY ==
--- NOTE | 2020-08-15 11:50 | PM.TREADMILL ---
Cardiac Stress Test Report Referral & Results Date Patient Seen: 08/15/20 Time Patient Seen: 11:50 Requesting provider: Anayeli Villarreal Indication: dyspnea Rest ECG: Sinus rhythm Procedure Note: After Lexiscan had minimal dyspnea; no chest discomfort No significnat ST changes after Lexiscan injection Occasional PVC noted Impression: Normal Lexiscan stress test MIBI images pending Please note: Actual ECG tracings can be found in the PACS system.
--- NOTE | 2020-08-16 16:38 | DI.NM.S_ITS ---
DATE OF SERVICE: 08/15/2020 PROCEDURE: Exercise perfusion study. INDICATIONS: Shortness of breath with underlying hypertension. RADIOPHARMACEUTICAL: 26.1 millicurie technetium-99m Myoview IV was injected at stress and 10.3 millicurie technetium-99m Myoview IV was injected at rest. CARDIAC STRESS: The patient underwent IV Lexiscan perfusion study under the supervision of an attending staff as per standard protocol. The patient felt minimal dyspnea. No chest pain. Baseline rhythm was sinus. During stress, no convincing ischemic changes seen. Occasional PVCs and intermittent PACs were seen. The patient remained hemodynamically stable. RAW DATA: There is increased subdiaphragmatic activity. Gut shadow was seen near the apex of the heart. GATED STUDY: Stress LV ejection fraction 85 percent and resting LV ejection fraction 75 percent without any obvious wall motion abnormalities. Resting end- diastolic volume 676 mL. TID. TID ratio 0.90, which is within normal limits. Lung/heart ratio 0.33, which is within normal limits. MYOCARDIAL PERFUSION: Stress supine, resting supine and stress prone images were compared to each other. Stress supine, resting supine and stress prone images revealed predominantly fixed, minimally decreased perfusion of anteroapex without any reversible ischemia. CONCLUSION: I will call this study likely a normal myocardial perfusion study. The patient has fixed, minimally decreased perfusion of the anteroapex. During raw data, there was increased diaphragmatic activity and gut shadow near the apex. On raw images, apex is moving well, which goes against the diagnosis of previous transmural myocardial infarction. Hence, most likely we are dealing with tissue attenuation artifact. Left ventricular function is preserved. Overall, this is a low-risk myocardial perfusion study. Alexandra Pool - OKSANA/ethel/jhonny doc#: [id number]/job#: [id number] dd: 08/15/2020 17:40:00 dt: 08/15/2020 19:41:00 DICTATING MD/COPIES TO: Susana Perez MD COPIES MNE: BRIDGETT;
== END ==
PROVIDERS: PCP Internal Medicine; Referring Provider Internal Medicine; Visit Provider Internal Medicine
DX: R06.02 Shortness of breath (principal); I10 Essential (primary) hypertension; R06.00 Dyspnea, unspecified
CPT/HCPCS: 78452; 93017; A9502; J2785

== ENCOUNTER → 2020-08-17 07:51 | Outpatient (CLI) | payer MEDICARE, SELFPAY ==
--- NOTE | 2020-08-17 07:53 | DI.ECHO.S_ITS ---
[facility] +---------+ : : [address] [place] : : : : [id number] : : : : Phone: [phone]+ Echocardiogram Report + + :Name: ALEJANDRO GASTELUM Study Date: 08/17/2020 Height: 67 in : [id number] ReadingLocation: Weight: 134 lb : : Gender: Female BSA: 1.7 m2 : :: 1935 Age: 84 yrs BP: 131/82 mmHg: :Reason For Study: Dyspnea : :Ordering Physician: JUSTYN : :JAYLEN Performed By: Marly Jacobs : :Referring: Anayeli Villarreal : + + Interpretation Summary Left ventricular systolic function appears normal with an estimated ejection fraction of 55 to 65% with considerable nmwj-mb-iuiw variability because of frequent PACs. There are no focal wall motion abnormality. Diastolic parameters suggest a diastolic relaxation abnormality but probable normal filling pressures. The right ventricle is mildly enlarged with systolic function at the lower limits of normal. Right ventricular systolic pressure is estimated at 32 mmHg with a CVP of around 8 mmHg. The left atrium is mildly enlarged. The mitral valve has a flat closure plane with borderline mitral valve prolapse and probable moderate mitral regurgitation. There is mild tricuspid regurgitation. The aortic arch is borderline enlarged with evidence of possible calcific atherosclerotic plaque in the ascending aorta. The patient was in sinus rhythm with frequent PACs. Procedure: A two-dimensional transthoracic echocardiogram with color flow and Doppler was performed. The study quality was technically adequate. There is no prior echocardiogram noted for this patient. The patient was in normal sinus rhythm during the exam. The patient had frequent PACs during the exam. Left Ventricle: The left ventricle appears normal in size, wall thickness, and systolic function without any focal wall motion abnormalities. There is no ventricular septal defect visualized. Left ventricular ejection fraction is estimated to be 55 to 65% with considerable ydwx-yj-dvaf variability. Diastolic parameters suggest a relaxation abnormality of the left ventricle, consistent with probable normal filling pressures. Right Ventricle: The right ventricle is mildly dilated. Right ventricular systolic function is at the lower limits of normal. Atria: The left atrium is mildly dilated. Right atrial size is normal. There is no Doppler evidence for an interatrial shunt. Mitral Valve: There is a flat closure plane of the the mitral valve leaflets. There is borderline mitral valve prolapse. There is moderate mitral regurgitation. Aortic Valve: The aortic valve is normal in structure and function. The aortic valve is trileaflet. The aortic valve is slightly calcified. The aortic valve opens well. No aortic regurgitation is present. Tricuspid Valve: The tricuspid valve leaflets are thin and pliable. There is mild tricuspid regurgitation. The right ventricular systolic pressure is estimated to be at least 32 mmHg based on an estimated right atrial pressure of 8 mm Hg. Pulmonic Valve: The pulmonic valve leaflets are thin and pliable; valve motion is normal. There is a trace or physiologic amount of pulmonic regurgitation. Great Vessels: The aortic root is normal size. The ascending aorta is normal in size. The aortic arch is at the upper limits of normal in size. Mild atherosclerotic plaque(s) in the ascending aorta. The pulmonary artery is normal size. The IVC is of normal diameter and collapses less than 50% with a sniff. This suggests a right atrial pressure of 8 mm Hg. Pericardium/ Pleura There is no pericardial effusion. MMode/2D Measurements & Calculations LVIDd: 3.7 cm LVOT diam: 2.1 cm LVIDs: 2.4 cm Ao root diam: 3.3 cm FS: 34.6 % asc Aorta Diam: 3.3 cm EPSS: 0.73 cm Ao Arch Diam (Prox Trans): 3.2 cm IVSd: 0.76 cm LVPWd: 0.83 cm LV howell. diameter/BSA (cm/m^2): 2.2 LV sys. diameter/BSA (cm/m^2): 1.4 LA A2 area: 20.8 cm2 RA long axis: 4.6 cm LA A4 area: 17.4 cm2 RA area: 12.2 cm2 LA length (vol): 4.9 cm RA vol: 27.7 ml LA vol: 62.3 ml RA : 16.2 ml/m2 LA vol index: 36.5 ml/m2 IVC diam: 1.7 cm RVD1 (basal): 4.4 cm RVD2 (mid): 3.0 cm TAPSE: 1.8 cm Doppler Measurements & Calculations Ao V2 max: 125.6 cm/sec LVOT Max Perry: 101.6 cm/sec Ao V2 mean: 93.1 cm/sec LV V1 max P.1 mmHg Ao max P.3 mmHg LV V1 VTI: 19.6 cm Ao mean P.8 mmHg AGNIESZKA(I,D): 2.8 cm2 Ao V2 VTI: 23.3 cm AGNIESZKA(V,D): 2.7 cm2 sev ratio: 0.84 AGNIESZKA indexed to BSA (cm^2/m^2): 1.7 MV E max perry: 52.8 cm/sec TR max perry: 246.3 cm/sec MV A max perry: 83.1 cm/sec TR max P.4 mmHg MV E/A: 0.63 PA V2 max: 44.5 cm/sec Med Peak E' Perry: 2.1 cm/sec PA V2 mean: 32.4 cm/sec E/E' med: 25.3 PA mean P.46 mmHg Lat Peak E' Perry: 3.8 cm/sec PA pr(Accel): 39.8 mmHg E/E' lat: 13.9 E/e' average: 19.6 MV dec time: 0.25 sec MR VTI: 132.9 cm SV(LVOT): 66.1 ml Reading Physician:11:53 AM
== END ==
PROVIDERS: PCP Internal Medicine; Referring Provider Student in an Organized Health Care Education/Training Program; Visit Provider Student in an Organized Health Care Education/Training Program
DX: I08.1 Rheumatic disorders of both mitral and tricuspid valves (principal); I70.0 Atherosclerosis of aorta; R06.02 Shortness of breath; R06.00 Dyspnea, unspecified
CPT/HCPCS: 93306

== ENCOUNTER → 2020-10-11 08:05 | Outpatient (ROUT) | payer MEDICARE, SELFPAY ==
[2020-10-11 08:30] LABS: D Dimer 1194 ng/mL (<230)
== END ==
PROVIDERS: PCP Internal Medicine; Visit Provider Internal Medicine
DX: R06.02 Shortness of breath (principal); I49.49 Other premature depolarization; M35.3 Polymyalgia rheumatica
CPT/HCPCS: 85379

== ENCOUNTER → 2020-10-12 08:04 | Outpatient (CLI) | payer MEDICARE, SELFPAY ==
--- NOTE | 2020-10-12 08:44 | DI.CT.S_ITS ---
PROCEDURE: CT ANGIO CHEST PE PROTOCOL INDICATIONS: Elevated D-dimer TECHNIQUE: After the administration of intravenous contrast, 2 mm thick sections acquired from the pulmonary apices to the posterior costophrenic angles. 3-dimensional maximum intensity projection (MIP) coronal and sagittal reformats were then acquired through the thorax. For radiation dose reduction, the following was used: automated exposure control, adjustment of mA and/or kV according to patient size. COMPARISON: None. FINDINGS: Image quality: Excellent. Pulmonary arteries: Pulmonary arteries are normal in size, and demonstrate no intraluminal filling defects to suggest central pulmonary embolism. Lungs and pleura: There is no evidence of pneumonia, or edema. There is moderate bibasilar predominant chronic appearing interstitial pulmonary opacity. There is a 9 mm diameter rounded nodule within the right lower lobe laterally (series 5, image 176). There is a subpleural nodule within the left lower lobe laterally measuring 5 mm (series 5, image 208). No pleural effusions or pneumothorax. Central and peripheral airways are patent. Mediastinum: Heart size is normal, without pericardial effusion. No mediastinal or hilar adenopathy. Thoracic aorta is normal in caliber and enhancement. Esophagus is normal in caliber, without hiatal hernia. Bones and chest wall: No suspicious bony lesions. Ribs and thoracic spine appear intact throughout. Thyroid gland is grossly unremarkable. No axillary or supraclavicular adenopathy. Abdomen: Visualized upper abdominal solid organs appear normal in the early arterial phase of enhancement. IMPRESSION: 1. No acute process. No pulmonary embolus. 2. Chronic appearing interstitial lung disease. 3. Bilateral pulmonary nodules. Follow-up is recommended as below. Fleischner Society criteria for SOLID lung nodule followup. Nodule size (mm)Low-risk patientHigh-risk patient<6 (single or multiple)No routine followup.Optional CT at 12 months. 6-8 (single or multiple)CT at 6-12 months, then optional CT at 18-24 mo.CT at 6-12 months, then CT at 18-24 months. >8 (single)CT, PET-CT, or biopsy at 3 months. Same as for low-risk pts. >8 (multiple)CT at 3-6 months, then optional CT at 18-24 mo.CT at 3-6 months, then CT at 18-24 months. Recommendations do not apply to lung cancer screening, patients with immunosuppression, or patients with known primary cancer. Dictated by: Tabitha Smith M.D. on 10/12/2020 at 9:27 Approved by: Tabitha Smith M.D. on 10/12/2020 at 9:30
== END ==
PROVIDERS: PCP Internal Medicine; Referring Provider Internal Medicine; Visit Provider Internal Medicine
DX: R79.89 Other specified abnormal findings of blood chemistry (principal); J84.9 Interstitial pulmonary disease, unspecified; R91.8 Other nonspecific abnormal finding of lung field
CPT/HCPCS: 71275

== ENCOUNTER → 2021-12-23 14:04 | Outpatient (CLI) | payer MEDICARE, SELFPAY ==
--- NOTE | 2021-12-23 | DI.CT.S_ITS ---
PROCEDURE: CT CHEST WO CON INDICATIONS: Solitary pulmonary nodule TECHNIQUE: Noncontrast 2.0-2.5 mm thick sections acquired from the pulmonary apices to the posterior costophrenic angles. 7 mm thick axial MIP and 5 mm coronal and sagittal reformats were then acquired. A low radiation dose technique was utilized. COMPARISON: [facility], CT, CT ANGIO CHEST PE PROTOCOL, 10/12/2020, 8:18. FINDINGS: Image quality: Diagnostic, given the low radiation dose technique. Lungs and pleura: Bilateral apically scarring is redemonstrated. As before, there is peripheral interlobular septal thickening consistent with honeycombing fibrosis. An 8 mm pulmonary nodule is redemonstrated within the lateral aspect of the right lower lobe (series 3/image 155). This is stable from the study dated October 12, 2020. 5 mm pulmonary nodule at the lateral left lung base is unchanged (series 3/image 185). No new pulmonary nodules. No acute airspace opacities. No pleural effusion or pneumothorax. Mediastinum: Heart size is normal. No pericardial effusion. No mediastinal adenopathy by size criteria. Thoracic aorta and central pulmonary arteries are normal in size. Scattered atheromatous calcifications are present within the aortic arch. Esophagus is normal in caliber. No hiatal hernia. Bones and chest wall: No suspicious bony lesions. No vertebral body compression fractures. No axillary or supraclavicular adenopathy by size criteria. Thyroid gland is unremarkable . Abdomen: Visualized upper abdomen solid organs and bowel loops appear normal in the absence of contrast. IMPRESSION: 1. Stable pulmonary nodules as above. In a high-risk patient, consider follow-up CT in 18-24 months. Please see follow-up guidelines below. 2. Pulmonary fibrosis. No acute pulmonary findings. Fleischner Society criteria for SOLID lung nodule followup. Nodule size (mm)Low-risk patientHigh-risk patient<6 (single or multiple)No routine followup.Optional CT at 12 months. 6-8 (single or multiple)CT at 6-12 months, then optional CT at 18-24 mo.CT at 6-12 months, then CT at 18-24 months. >8 (single)CT at 3 months, PET-CT, or biopsy. Same as for low-risk pts. >8 (multiple)CT at 3-6 months, then optional CT at 18-24 mo.CT at 3-6 months, then CT at 18-24 months. Fleischner Society criteria for SUB-SOLID lung nodule followup. Solitary pure ground-glass nodules<6 mm (ground glass or part solid)No followup needed. 6 mm or larger (ground glass)CT at 6-12 months to confirm persistence, then CT every 2 years until 5 years.6 mm or larger (part solid)CT at 3-6 months to confirm persistence, then annual CT until 5 years if unchanged and solid component remains <6 mm. Multiple sub-solid nodules<6 mmCT at 3-6 months, then CT consider at 2 & 4 years for high risk patients. [address] at 3-6 months. Subsequent management based on most suspicious lesions. Recommendations do not apply to lung cancer screening, patients with immunosuppression, or patients with known primary cancer. Dictated by: Cherry Nesbitt M.D. on 12/23/2021 at 16:38 Approved by: Cherry Nesbitt M.D. on 12/23/2021 at 16:42
== END ==
PROVIDERS: PCP Internal Medicine; Referring Provider Internal Medicine; Visit Provider Internal Medicine
DX: R91.8 Other nonspecific abnormal finding of lung field (principal); J84.10 Pulmonary fibrosis, unspecified
CPT/HCPCS: 71250

== ENCOUNTER 2022-05-29 10:30 | Outpatient (RCR) | payer MEDICARE, SELFPAY ==
--- NOTE | 2022-01-21 16:55 | PT.OIE ---
Current Diagnoses Age-related osteoporosis without current pathological fracture (01/21/22) Past Medical History (Last Reviewed 06/07/20 @ 10:24 by Carmita Butterfield DO) Leg numbness Visit Care Team Role Provider Type DENNY Gamboa Attending Provider Advanced Steel Erector Family Provider Primary Care Provider Referring Provider Specialty: Family Practice Address: [address] [place] [address], [id number] Email: [email or web address] Physical Therapy Initial Evaluation PT-OP-A Visit Information Start: 01/20/22 17:31 Freq: Status: Active Protocol: Document 01/21/22 15:14 LRN (Rec: 01/21/22 16:55 LRN [id number]) Out-Patient Physical Therapy Visit Information Visit Information Visit Type Initial Evaluation Visit Start Time 15:14 Visit Stop Time 14:14 Total Visit Minutes 60 Visit Number 1 Evaluation Information Evaluation Date 01/21/22 Precautions Precautions 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 PT-OP-B Current Condition Start: 01/20/22 17:31 Freq: Status: Active Protocol: Document 01/21/22 15:14 LRN (Rec: 01/21/22 16:55 LRN [id number]) Current Condition History of Current Condition Onset Date 2 yrs ago Current Complaints Balance problem. Wasn't aware she had osteoporosis. History of Current Condition Pt states she was sent here by Anayeli Villarreal to help her not fall and her problem is balance. Pt is not sure why she is in Physical Therapy. Fell 2 yrs ago tripping over something in the yard. Has off/on R knee pain of unknown reason, heat made her pain go away. Prior Treatments and Tests None Treatment Goals Patient/Caregiver Goals PT goal is to improve balance to SLS for 10 sec. Pt agreeable to placment on HEP and LE strengthening Prior Functional Status Baseline Function- ADL's Independent Baseline Function- Mobility Independent Baseline Function- Gait Walk several blocks. Baseline Function- Other When weather gets cold bones and joints ache. Current Functional Impairments (Reported) Functional Limitations- ADL's Walks to mailbox and back. Yesterday walked 4 blocks. Functional Limitations- Mobility/Gait Walks without an assistive device. Functional Limitations- Recreation/ Does Chair Yoga. Hobbies Personal Factors Other Personal Factors That May Effect Lives by self. Therapy/Recovery PT-OP-C Subjective Start: 01/20/22 17:31 Freq: Status: Active Protocol: Document 01/21/22 15:14 LRN (Rec: 01/21/22 16:55 LRN [id number]) Patient Questionnaires ABC- Activity Specific Balance Confidence Scale ABC Score 81.875 ABC Functional Impairment 1 to <20% Impaired (Score 81- 99) PT-OP-J Posture/Palpation/Skin Start: 01/20/22 17:31 Freq: Status: Active Protocol: Document 01/21/22 15:14 LRN (Rec: 01/21/22 16:55 LRN [id number]) Posture Evaluation Position Standing T-Spine Posture Flexible Scoliosis on (R) Shoulder Posture (R) Forward,(L) Elevated Scapula Posture (R) Depressed Arm Posture (L) Neutral,(R) Neutral Pelvis Posture (L) Iliac Crest Superior Weight Distribution Balanced Ankle/Foot Posture (L) Forefoot Abducted,(R) Forefoot Abducted Comments Posture Comments Dowagers Hump, Small C-curve in T/S with apex on R. When pt bends her L knee her spine straightens. Valgus of knees: 10 deg's Right, 3 deg's Left . Palpation Assessment Location Leg length Palpation Location Supine: ASIS to distal medial malleolus. Palpation Details L 96 cm R 95.5 cm PT-OP-K Range of Motion Start: 01/20/22 17:31 Freq: Status: Active Protocol: Document 01/21/22 15:14 LRN (Rec: 01/21/22 16:55 LRN [id number]) Lumbar Spine Range of Motion Lumbar Spine Active Degrees Testing Position Standing Comments AROM is WFL. PT-OP-M Strength Start: 01/20/22 17:31 Freq: Status: Active Protocol: Document 01/21/22 15:14 LRN (Rec: 01/21/22 16:55 LRN [id number]) Trunk Strength Trunk Manual Muscle Testing Comments Strength is generally 4+/5 Ankle/Foot Strength Ankle and Foot Manual Muscle Testing Right Plantarflexion (S1) 4 Good Comments 5/5 except as indicated above. Pt has loss of balance on return from Plantarflexion in standing. Left Plantarflexion (S1) 4 Good Comments 5/5 except as indicated above. Pt has loss of balance on return from Plantarflexion in standing. PT-OP-Q Treatments Start: 01/20/22 17:31 Freq: Status: Active Protocol: Document 01/21/22 15:14 LRN (Rec: 01/21/22 16:55 LRN [id number]) Self-Care/Home Management Treatment Education Other Education Extra time was spent discussing goals due to pt not aware of why she was referred to therapy. Discussed at length results of evaluation and specifics of plan of care (POC). Pt agreeable to goals and POC. PT-OP-T Assessment and Plan Start: 01/20/22 17:31 Freq: Status: Active Protocol: Document 01/21/22 15:14 LRN (Rec: 01/21/22 16:55 LRN [id number]) Physical Therapy Assessment Rehab Potential Rehabilitation Potential Excellent Evaluation Complexity Number of Personal Factors/Comorbidities 1-2 Number of Body Systems Impaired 3 Clinical Presentation at Evaluation Evolving Impairments Impairments Balance,Posture,Strength Goals Three Impairment Decreased single leg balance and balance activities Impairment SLS: Left- 1sec, Right 4 secs . Tandem: 2 secs bilaterally. Turning 360 deg's in 4 secs bilaterally. Fpc Goal (LTG) Improve SLS or tandem stance by 1-2 secs and pt on a home program to improve. LTG Duration 02/21/22 Two Impairment Decreased ankle strength Impairment PF strength is 4/5, with LOB backwards after ECC contraction (return to standing after on toes positioning). Short Term Goal (STG) Pt will be educated in TBand ankle ex's with focus on ECC strengthening with PF. STG Duration 01/24/22 Reel Cutter Goal (LTG) Pt will not lose her balance with return from ankle PF. LTG Duration 02/21/22 One Impairment Lacks appropriate self care HEP Impairment Valgus of knees: 10 deg's Right, 3 deg's Left. Short Term Goal (STG) HEP for hip strengthening to limit valgus of the R knee to improve posture. STG Duration 01/30/22 Fpc Goal (LTG) Pt will be independent in a self care HEP of LTG Duration 02/21/22 Assessment Summary Assessment Pt presents with primary complaints of decreased balance and was unaware of her status of osteoporosis. The pt does present with postural deviation of a low R shoulder and hip, but assessment shows L hip is high due to greater valgus of the R knee in standing (leg length difference is within normal range: L 96 cm, R 95.5 cm). Pt shows decreased balance with single leg stance activities (SLS, Tandem stance , and turning 360 deg's around ). Pt overall trunk and LE strength is functional for her age except for ankle PF is weak with eccentric contraction causing loss of balance on return from raising of heels. Physical Therapy Plan Frequency and Duration Frequency of Treatment 2x/Week Plan of Care Start Date 01/21/22 Plan of Care End Date 02/21/22 Therapeutic Interventions Therapeutic Interventions Balance Training,Home Exercise Program,Patient/Caregiver Education,Self-Care/Home Management,Therapeutic Exercises Next Visit Focus/Plan Next Note Type Treatment Note Next Visit Plan DOMINIQUE Hahn spoke with Anayeli Villarreal's staff, who will message Anayeli Villarreal to add diagnosis for balance due to weakness and will follow up. Ankle strengthening with focus on ECC strengthening for ankle PF and HEP w/TBand. Ex: Hip AB/AD strengthening to minimize R knee valgus. Balance: single leg stance activities (SLS, Tandem stance , and turning 360 deg's around ).
--- NOTE | 2022-01-21 16:56 | PT.OPPOC ---
Physical, Occupational & Speech Therapy At [facility] Current Diagnoses Age-related osteoporosis without current pathological fracture (01/21/22) Visit Care Team Role Provider Type DENNY Gamboa Attending Provider Advanced Concrete Pump Operator Helper Family Provider Primary Care Provider Referring Provider Specialty: Family Practice Address: [address] [place] [address], [id number] Email: [email or web address] Plan Of Care PT-OP-T Assessment and Plan Start: 01/20/22 17:31 Freq: Status: Active Protocol: Document 01/21/22 15:14 LRN (Rec: 01/21/22 16:55 LRN [id number]) Physical Therapy Assessment Rehab Potential Rehabilitation Potential Excellent Evaluation Complexity Number of Personal Factors/Comorbidities 1-2 Number of Body Systems Impaired 3 Clinical Presentation at Evaluation Evolving Impairments Impairments Balance,Posture,Strength Goals Three Impairment Decreased single leg balance and balance activities Impairment SLS: Left- 1sec, Right 4 secs . Tandem: 2 secs bilaterally. Turning 360 deg's in 4 secs bilaterally. Roofer Apprentice Goal (LTG) Improve SLS or tandem stance by 1-2 secs and pt on a home program to improve. LTG Duration 02/21/22 Two Impairment Decreased ankle strength Impairment PF strength is 4/5, with LOB backwards after ECC contraction (return to standing after on toes positioning). Short Term Goal (STG) Pt will be educated in TBand ankle ex's with focus on ECC strengthening with PF. STG Duration 01/24/22 Roofer Apprentice Goal (LTG) Pt will not lose her balance with return from ankle PF. LTG Duration 02/21/22 One Impairment Lacks appropriate self care HEP Impairment Valgus of knees: 10 deg's Right, 3 deg's Left. Short Term Goal (STG) HEP for hip strengthening to limit valgus of the R knee to improve posture. STG Duration 01/30/22 Roofer Apprentice Goal (LTG) Pt will be independent in a self care HEP of LTG Duration 02/21/22 Assessment Summary Assessment Pt presents with primary complaints of decreased balance and was unaware of her status of osteoporosis. The pt does present with postural deviation of a low R shoulder and hip, but assessment shows L hip is high due to greater valgus of the R knee in standing (leg length difference is within normal range: L 96 cm, R 95.5 cm). Pt shows decreased balance with single leg stance activities (SLS, Tandem stance , and turning 360 deg's around ). Pt overall trunk and LE strength is functional for her age except for ankle PF is weak with eccentric contraction causing loss of balance on return from raising of heels. Physical Therapy Plan Frequency and Duration Frequency of Treatment 2x/Week Plan of Care Start Date 01/21/22 Plan of Care End Date 02/21/22 Therapeutic Interventions Therapeutic Interventions Balance Training,Home Exercise Program,Patient/Caregiver Education,Self-Care/Home Management,Therapeutic Exercises Next Visit Focus/Plan Next Note Type Treatment Note Next Visit Plan DOMINIQUE Hahn spoke with Anayeli Villarreal's staff, who will message Anayeli Villarreal to add diagnosis for balance due to weakness and will follow up. Ankle strengthening with focus on ECC strengthening for ankle PF and HEP w/TBand. Ex: Hip AB/AD strengthening to minimize R knee valgus. Balance: single leg stance activities (SLS, Tandem stance , and turning 360 deg's around ). Plan of Care Dates Plan of Care Start Date 01/21/22 Plan of Care End Date 02/21/22 Electronically Signed by: Cherry Ricardo, PT 01/21/22 4078 If you are in agreement with this Plan of Care, please return a signed and dated copy. I have reviewed this Plan of Care and certify that the skilled therapy services above are required to meet the patient?s needs. Physician Signature Date Printed Name and Credentials Clinical Instructor Signature Printed Name and Credentials
--- NOTE | 2022-01-21 16:59 | PT.OIE ---
Current Diagnoses Muscle weakness (generalized) (01/21/22) Age-related osteoporosis without current pathological fracture (01/21/22) Unsteadiness on feet (01/21/22) Past Medical History (Last Reviewed 06/07/20 @ 10:24 by Carmita Butterfield DO) Leg numbness Visit Care Team Role Provider Type DENNY Gamboa Attending Provider Advanced Director Home Health Family Provider Primary Care Provider Referring Provider Specialty: [facility] Practice Address: [address] [place] [address], [facility] [place], [facility] Email: [email or web address] Physical Therapy Initial Evaluation PT-OP-A Visit Information Start: 01/20/22 17:31 Freq: Status: Active Protocol: Document 01/21/22 15:14 LRN (Rec: 01/21/22 16:55 LRN [id number]) Out-Patient Physical Therapy Visit Information Visit Information Visit Type Initial Evaluation Visit Start Time 15:14 Visit Stop Time 14:14 Total Visit Minutes 60 Visit Number 1 Evaluation Information Evaluation Date 01/21/22 Precautions Precautions 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 PT-OP-B Current Condition Start: 01/20/22 17:31 Freq: Status: Active Protocol: Document 01/21/22 15:14 LRN (Rec: 01/21/22 16:55 LRN [id number]) Current Condition History of Current Condition Onset Date 2 yrs ago Current Complaints Balance problem. Wasn't aware she had osteoporosis. History of Current Condition Pt states she was sent here by Anayeli Villarreal to help her not fall and her problem is balance. Pt is not sure why she is in Physical Therapy. Fell 2 yrs ago tripping over something in the yard. Has off/on R knee pain of unknown reason, heat made her pain go away. Prior Treatments and Tests None Treatment Goals Patient/Caregiver Goals PT goal is to improve balance to SLS for 10 sec. Pt agreeable to placment on HEP and LE strengthening Prior Functional Status Baseline Function- ADL's Independent Baseline Function- Mobility Independent Baseline Function- Gait Walk several blocks. Baseline Function- Other When weather gets cold bones and joints ache. Current Functional Impairments (Reported) Functional Limitations- ADL's Walks to mailbox and back. Yesterday walked 4 blocks. Functional Limitations- Mobility/Gait Walks without an assistive device. Functional Limitations- Recreation/ Does Chair Yoga. Hobbies Personal Factors Other Personal Factors That May Effect Lives by self. Therapy/Recovery PT-OP-C Subjective Start: 01/20/22 17:31 Freq: Status: Active Protocol: Document 01/21/22 15:14 LRN (Rec: 01/21/22 16:55 LRN [id number]) Patient Questionnaires ABC- Activity Specific Balance Confidence Scale ABC Score 81.875 ABC Functional Impairment 1 to <20% Impaired (Score 81- 99) PT-OP-J Posture/Palpation/Skin Start: 01/20/22 17:31 Freq: Status: Active Protocol: Document 01/21/22 15:14 LRN (Rec: 01/21/22 16:55 LRN [id number]) Posture Evaluation Position Standing T-Spine Posture Flexible Scoliosis on (R) Shoulder Posture (R) Forward,(L) Elevated Scapula Posture (R) Depressed Arm Posture (L) Neutral,(R) Neutral Pelvis Posture (L) Iliac Crest Superior Weight Distribution Balanced Ankle/Foot Posture (L) Forefoot Abducted,(R) Forefoot Abducted Comments Posture Comments Dowagers Hump, Small C-curve in T/S with apex on R. When pt bends her L knee her spine straightens. Valgus of knees: 10 deg's Right, 3 deg's Left . Palpation Assessment Location Leg length Palpation Location Supine: ASIS to distal medial malleolus. Palpation Details L 96 cm R 95.5 cm PT-OP-K Range of Motion Start: 01/20/22 17:31 Freq: Status: Active Protocol: Document 01/21/22 15:14 LRN (Rec: 01/21/22 16:55 LRN [id number]) Lumbar Spine Range of Motion Lumbar Spine Active Degrees Testing Position Standing Comments AROM is WFL. PT-OP-M Strength Start: 01/20/22 17:31 Freq: Status: Active Protocol: Document 01/21/22 15:14 LRN (Rec: 01/21/22 16:55 LRN [id number]) Trunk Strength Trunk Manual Muscle Testing Comments Strength is generally 4+/5 Ankle/Foot Strength Ankle and Foot Manual Muscle Testing Right Plantarflexion (S1) 4 Good Comments 5/5 except as indicated above. Pt has loss of balance on return from Plantarflexion in standing. Left Plantarflexion (S1) 4 Good Comments 5/5 except as indicated above. Pt has loss of balance on return from Plantarflexion in standing. PT-OP-Q Treatments Start: 01/20/22 17:31 Freq: Status: Active Protocol: Document 01/21/22 15:14 LRN (Rec: 01/21/22 16:55 LRN [id number]) Self-Care/Home Management Treatment Education Other Education Extra time was spent discussing goals due to pt not aware of why she was referred to therapy. Discussed at length results of evaluation and specifics of plan of care (POC). Pt agreeable to goals and POC. PT-OP-T Assessment and Plan Start: 01/20/22 17:31 Freq: Status: Active Protocol: Document 01/21/22 15:14 LRN (Rec: 01/21/22 16:55 LRN [id number]) Physical Therapy Assessment Rehab Potential Rehabilitation Potential Excellent Evaluation Complexity Number of Personal Factors/Comorbidities 1-2 Number of Body Systems Impaired 3 Clinical Presentation at Evaluation Evolving Impairments Impairments Balance,Posture,Strength Goals Three Impairment Decreased single leg balance and balance activities Impairment SLS: Left- 1sec, Right 4 secs . Tandem: 2 secs bilaterally. Turning 360 deg's in 4 secs bilaterally. Care Home Goal (LTG) Improve SLS or tandem stance by 1-2 secs and pt on a home program to improve. LTG Duration 02/21/22 Two Impairment Decreased ankle strength Impairment PF strength is 4/5, with LOB backwards after ECC contraction (return to standing after on toes positioning). Short Term Goal (STG) Pt will be educated in TBand ankle ex's with focus on ECC strengthening with PF. STG Duration 01/24/22 Care Home Goal (LTG) Pt will not lose her balance with return from ankle PF. LTG Duration 02/21/22 One Impairment Lacks appropriate self care HEP Impairment Valgus of knees: 10 deg's Right, 3 deg's Left. Short Term Goal (STG) HEP for hip strengthening to limit valgus of the R knee to improve posture. STG Duration 01/30/22 Care Home Goal (LTG) Pt will be independent in a self care HEP of LTG Duration 02/21/22 Assessment Summary Assessment Pt presents with primary complaints of decreased balance and was unaware of her status of osteoporosis. The pt does present with postural deviation of a low R shoulder and hip, but assessment shows L hip is high due to greater valgus of the R knee in standing (leg length difference is within normal range: L 96 cm, R 95.5 cm). Pt shows decreased balance with single leg stance activities (SLS, Tandem stance , and turning 360 deg's around ). Pt overall trunk and LE strength is functional for her age except for ankle PF is weak with eccentric contraction causing loss of balance on return from raising of heels. Physical Therapy Plan Frequency and Duration Frequency of Treatment 2x/Week Plan of Care Start Date 01/21/22 Plan of Care End Date 02/21/22 Therapeutic Interventions Therapeutic Interventions Balance Training,Home Exercise Program,Patient/Caregiver Education,Self-Care/Home Management,Therapeutic Exercises Next Visit Focus/Plan Next Note Type Treatment Note Next Visit Plan DOMINIQUE Hahn spoke with Anayeli Villarreal's staff, who will message Anayeli Villarreal to add diagnosis for balance due to weakness and will follow up. Ankle strengthening with focus on ECC strengthening for ankle PF and HEP w/TBand. Ex: Hip AB/AD strengthening to minimize R knee valgus. Balance: single leg stance activities (SLS, Tandem stance , and turning 360 deg's around ).
--- NOTE | 2022-01-21 17:00 | PT.OPPOC ---
Physical, Occupational & Speech Therapy At [facility] Current Diagnoses Muscle weakness (generalized) (01/21/22) Age-related osteoporosis without current pathological fracture (01/21/22) Unsteadiness on feet (01/21/22) Visit Care Team Role Provider Type DENNY Gamboa Attending Provider Advanced Group Fitness Instructor Family Provider Primary Care Provider Referring Provider Specialty: Family Practice Address: [address] [place] [address], [facility] [place] [place], [address] Email: [email or web address] Plan Of Care PT-OP-T Assessment and Plan Start: 01/20/22 17:31 Freq: Status: Active Protocol: Document 01/21/22 15:14 LRN (Rec: 01/21/22 16:55 LRN [id number]) Physical Therapy Assessment Rehab Potential Rehabilitation Potential Excellent Evaluation Complexity Number of Personal Factors/Comorbidities 1-2 Number of Body Systems Impaired 3 Clinical Presentation at Evaluation Evolving Impairments Impairments Balance,Posture,Strength Goals Three Impairment Decreased single leg balance and balance activities Impairment SLS: Left- 1sec, Right 4 secs . Tandem: 2 secs bilaterally. Turning 360 deg's in 4 secs bilaterally. Nurse Educator Goal (LTG) Improve SLS or tandem stance by 1-2 secs and pt on a home program to improve. LTG Duration 02/21/22 Two Impairment Decreased ankle strength Impairment PF strength is 4/5, with LOB backwards after ECC contraction (return to standing after on toes positioning). Short Term Goal (STG) Pt will be educated in TBand ankle ex's with focus on ECC strengthening with PF. STG Duration 01/24/22 Nurse Educator Goal (LTG) Pt will not lose her balance with return from ankle PF. LTG Duration 02/21/22 One Impairment Lacks appropriate self care HEP Impairment Valgus of knees: 10 deg's Right, 3 deg's Left. Short Term Goal (STG) HEP for hip strengthening to limit valgus of the R knee to improve posture. STG Duration 01/30/22 Nurse Educator Goal (LTG) Pt will be independent in a self care HEP of LTG Duration 02/21/22 Assessment Summary Assessment Pt presents with primary complaints of decreased balance and was unaware of her status of osteoporosis. The pt does present with postural deviation of a low R shoulder and hip, but assessment shows L hip is high due to greater valgus of the R knee in standing (leg length difference is within normal range: L 96 cm, R 95.5 cm). Pt shows decreased balance with single leg stance activities (SLS, Tandem stance , and turning 360 deg's around ). Pt overall trunk and LE strength is functional for her age except for ankle PF is weak with eccentric contraction causing loss of balance on return from raising of heels. Physical Therapy Plan Frequency and Duration Frequency of Treatment 2x/Week Plan of Care Start Date 01/21/22 Plan of Care End Date 02/21/22 Therapeutic Interventions Therapeutic Interventions Balance Training,Home Exercise Program,Patient/Caregiver Education,Self-Care/Home Management,Therapeutic Exercises Next Visit Focus/Plan Next Note Type Treatment Note Next Visit Plan DOMINIQUE Hahn spoke with Anayeli Villarreal's staff, who will message Anayeli Villarreal to add diagnosis for balance due to weakness and will follow up. Ankle strengthening with focus on ECC strengthening for ankle PF and HEP w/TBand. Ex: Hip AB/AD strengthening to minimize R knee valgus. Balance: single leg stance activities (SLS, Tandem stance , and turning 360 deg's around ). Plan of Care Dates Plan of Care Start Date 01/21/22 Plan of Care End Date 02/21/22 Electronically Signed by: Cherry Ricardo, PT 01/21/22 1700 If you are in agreement with this Plan of Care, please return a signed and dated copy. I have reviewed this Plan of Care and certify that the skilled therapy services above are required to meet the patient?s needs. Physician Signature Date Printed Name and Credentials Clinical Instructor Signature Printed Name and Credentials
--- NOTE | 2022-01-23 13:42 | PT.OTN ---
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 PT-OP-B Current Condition Start: 01/20/22 17:31 Freq: Status: Active Protocol: Document 01/21/22 15:14 LRN (Rec: 01/21/22 16:55 LRN [id number]) Current Condition History of Current Condition Onset Date 2 yrs ago Current Complaints Balance problem. Wasn't aware she had osteoporosis. History of Current Condition Pt states she was sent here by Anayeli Villarreal to help her not fall and her problem is balance. Pt is not sure why she is in Physical Therapy. Fell 2 yrs ago tripping over something in the yard. Has off/on R knee pain of unknown reason, heat made her pain go away. Prior Treatments and Tests None Treatment Goals Patient/Caregiver Goals PT goal is to improve balance to SLS for 10 sec. Pt agreeable to placment on HEP and LE strengthening Prior Functional Status Baseline Function- ADL's Independent Baseline Function- Mobility Independent Baseline Function- Gait Walk several blocks. Baseline Function- Other When weather gets cold bones and joints ache. Current Functional Impairments (Reported) Functional Limitations- ADL's Walks to mailbox and back. Yesterday walked 4 blocks. Functional Limitations- Mobility/Gait Walks without an assistive device. Functional Limitations- Recreation/ Does Chair Yoga. Hobbies Personal Factors Other Personal Factors That May Effect Lives by self. Therapy/Recovery PT-OP-C Subjective Start: 01/20/22 17:31 Freq: Status: Active Protocol: Document 01/23/22 13:00 LRN (Rec: 01/23/22 13:41 LRN [id number]) OP-PT Subjective Patient Comments Patient Comments States she is here to improve her balance. PT-OP-J Posture/Palpation/Skin Start: 01/20/22 17:31 Freq: Status: Active Protocol: Document 01/21/22 15:14 LRN (Rec: 01/21/22 16:55 LRN [id number]) Posture Evaluation Position Standing T-Spine Posture Flexible Scoliosis on (R) Shoulder Posture (R) Forward,(L) Elevated Scapula Posture (R) Depressed Arm Posture (L) Neutral,(R) Neutral Pelvis Posture (L) Iliac Crest Superior Weight Distribution Balanced Ankle/Foot Posture (L) Forefoot Abducted,(R) Forefoot Abducted Comments Posture Comments Dowagers Hump, Small C-curve in T/S with apex on R. When pt bends her L knee her spine straightens. Valgus of knees: 10 deg's Right, 3 deg's Left . Palpation Assessment Location Leg length Palpation Location Supine: ASIS to distal medial malleolus. Palpation Details L 96 cm R 95.5 cm PT-OP-K Range of Motion Start: 01/20/22 17:31 Freq: Status: Active Protocol: Document 01/21/22 15:14 LRN (Rec: 01/21/22 16:55 LRN [id number]) Lumbar Spine Range of Motion Lumbar Spine Active Degrees Testing Position Standing Comments AROM is WFL. PT-OP-M Strength Start: 01/20/22 17:31 Freq: Status: Active Protocol: Document 01/21/22 15:14 LRN (Rec: 01/21/22 16:55 LRN [id number]) Trunk Strength Trunk Manual Muscle Testing Comments Strength is generally 4+/5 Ankle/Foot Strength Ankle and Foot Manual Muscle Testing Right Plantarflexion (S1) 4 Good Comments 5/5 except as indicated above. Pt has loss of balance on return from Plantarflexion in standing. Left Plantarflexion (S1) 4 Good Comments 5/5 except as indicated above. Pt has loss of balance on return from Plantarflexion in standing. PT-OP-Q Treatments Start: 01/20/22 17:31 Freq: Status: Active Protocol: Document 01/23/22 13:00 LRN (Rec: 01/23/22 13:41 LRN [id number]) Therapeutic Exercises Sitting Exercises Hip AB Sitting Exercise Name AB strengthening Side bilateral Equipment Used Lev 2 TB Reps/Minutes 5 SH, 10x 1 Comments Extra time for performing ex to feel strengthening at hips. ECC Ankle PF strenthening Sitting Exercise Name ECC ankle PF strengthening Side bilateral Equipment Used Lev 2 TB Reps/Minutes 15x [address] ankle strengthening Sitting Exercise Name Ankle EV/IR/DF strengthening Side bilateral Equipment Used Lev 2 TB, & Towel roll btn knees for EV. Reps/Minutes 15 x 2 each Standing Exercises ECC Ankle PF strengthening Standing Exercise Name ECC ankle PF strengthening Side bilateral Reps/Minutes 15 x 2 Self-Care/Home Management Treatment Education Patient Education Home Exercise Program Activities Self-Care/Home Management Activities Issued & reviewed HEP: TBand ankle strengthening (EV/IV/DF) and ECC strengthening of ankle PF with Lev 2 TBand issued. PT-OP-T Assessment and Plan Start: 01/20/22 17:31 Freq: Status: Active Protocol: Document 01/23/22 13:00 LRN (Rec: 01/23/22 13:41 LRN [id number]) Physical Therapy Assessment Goals Three Impairment Decreased single leg balance and balance activities Impairment SLS: Left- 1sec, Right 4 secs . Tandem: 2 secs bilaterally. Turning 360 deg's in 4 secs bilaterally. Nursing Home Goal (LTG) Improve SLS or tandem stance by 1-2 secs and pt on a home program to improve. LTG Duration 02/21/22 Two Impairment Decreased ankle strength Impairment PF strength is 4/5, with LOB backwards after ECC contraction (return to standing after on toes positioning). Short Term Goal (STG) Pt will be educated in TBand ankle ex's with focus on ECC strengthening with PF. STG Duration 01/24/22 (01/23/22: MET GOAL) Nursing Home Goal (LTG) Pt will not lose her balance with return from ankle PF. LTG Duration 02/21/22 One Impairment Lacks appropriate self care HEP Impairment Valgus of knees: 10 deg's Right, 3 deg's Left. Short Term Goal (STG) HEP for hip strengthening to limit valgus of the R knee to improve posture. STG Duration 01/30/22 Nursing Home Goal (LTG) Pt will be independent in a self care HEP. 01/23/22: Issue: TBand ankle strengthening and ECC ankle PF strengthening, Lev2 TB issued . LTG Duration 02/21/22 (01/23/22: Progressed ) Assessment Summary Assessment Pt tolerated ankle strengthening without complaints of discomfort. Pt needed much cuing with hip AB for pt to feel strengthening occur. Physical Therapy Plan Frequency and Duration Frequency of Treatment 2x/Week Plan of Care Start Date 01/21/22 Plan of Care End Date 02/21/22 Next Visit Focus/Plan Next Note Type Treatment Note Next Visit Plan DOMINIQUE Hahn spoke with Anayeli Villarreal's staff on 01/21/22, who will message nAayeli Villarreal to add diagnosis for balance due to weakness and will follow up on Anayeli Villarreal's return next week. Review ankle strengthening with focus on ECC strengthening for ankle PF, and sitting hip AB. Ex: Hip AB/AD strengthening to minimize R knee valgus and issue HEP. Balance: single leg stance activities (SLS, Tandem stance , and turning 360 deg's around ).
--- NOTE | 2022-01-30 17:18 | PT.OTN ---
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 PT-OP-B Current Condition Start: 01/20/22 17:31 Freq: Status: Active Protocol: Document 01/21/22 15:14 LRN (Rec: 01/21/22 16:55 LRN [id number]) Current Condition History of Current Condition Onset Date 2 yrs ago Current Complaints Balance problem. Wasn't aware she had osteoporosis. History of Current Condition Pt states she was sent here by Anayeli Villarreal to help her not fall and her problem is balance. Pt is not sure why she is in Physical Therapy. Fell 2 yrs ago tripping over something in the yard. Has off/on R knee pain of unknown reason, heat made her pain go away. Prior Treatments and Tests None Treatment Goals Patient/Caregiver Goals PT goal is to improve balance to SLS for 10 sec. Pt agreeable to placment on HEP and LE strengthening Prior Functional Status Baseline Function- ADL's Independent Baseline Function- Mobility Independent Baseline Function- Gait Walk several blocks. Baseline Function- Other When weather gets cold bones and joints ache. Current Functional Impairments (Reported) Functional Limitations- ADL's Walks to mailbox and back. Yesterday walked 4 blocks. Functional Limitations- Mobility/Gait Walks without an assistive device. Functional Limitations- Recreation/ Does Chair Yoga. Hobbies Personal Factors Other Personal Factors That May Effect Lives by self. Therapy/Recovery PT-OP-C Subjective Start: 01/20/22 17:31 Freq: Status: Active Protocol: Document 01/30/22 13:03 LRN (Rec: 01/30/22 13:47 LRN [id number]) OP-PT Subjective Patient Comments Patient Comments Doing okay with foot exercises . Thinks her knee is not as bumpy as it was. PT-OP-J Posture/Palpation/Skin Start: 01/20/22 17:31 Freq: Status: Active Protocol: Document 01/21/22 15:14 LRN (Rec: 01/21/22 16:55 LRN [id number]) Posture Evaluation Position Standing T-Spine Posture Flexible Scoliosis on (R) Shoulder Posture (R) Forward,(L) Elevated Scapula Posture (R) Depressed Arm Posture (L) Neutral,(R) Neutral Pelvis Posture (L) Iliac Crest Superior Weight Distribution Balanced Ankle/Foot Posture (L) Forefoot Abducted,(R) Forefoot Abducted Comments Posture Comments Dowagers Hump, Small C-curve in T/S with apex on R. When pt bends her L knee her spine straightens. Valgus of knees: 10 deg's Right, 3 deg's Left . Palpation Assessment Location Leg length Palpation Location Supine: ASIS to distal medial malleolus. Palpation Details L 96 cm R 95.5 cm PT-OP-K Range of Motion Start: 01/20/22 17:31 Freq: Status: Active Protocol: Document 01/21/22 15:14 LRN (Rec: 01/21/22 16:55 LRN [id number]) Lumbar Spine Range of Motion Lumbar Spine Active Degrees Testing Position Standing Comments AROM is WFL. PT-OP-M Strength Start: 01/20/22 17:31 Freq: Status: Active Protocol: Document 01/21/22 15:14 LRN (Rec: 01/21/22 16:55 LRN [id number]) Trunk Strength Trunk Manual Muscle Testing Comments Strength is generally 4+/5 Ankle/Foot Strength Ankle and Foot Manual Muscle Testing Right Plantarflexion (S1) 4 Good Comments 5/5 except as indicated above. Pt has loss of balance on return from Plantarflexion in standing. Left Plantarflexion (S1) 4 Good Comments 5/5 except as indicated above. Pt has loss of balance on return from Plantarflexion in standing. PT-OP-Q Treatments Start: 01/20/22 17:31 Freq: Status: Active Protocol: Document 01/30/22 13:03 LRN (Rec: 01/30/22 13:47 LRN [id number]) Therapeutic Exercises Sidelying Exercises Clamshell Sidelying Exercise Name Clamshell Side right Reps/Minutes 10x Comments Cuing needed for proper form Hip AD Sidelying Exercise Name Hip AD Side right Comments Cuing needed for proper form Hip AB Sidelying Exercise Name Hip AB Side right Reps/Minutes 10x Comments Cuing needed for proper form Sitting Exercises ECC Ankle PF strenthening Sitting Exercise Name ECC ankle PF strengthening Side bilateral Equipment Used Lev 1 TB Reps/Minutes 10x 3 3-way ankle strengthening Sitting Exercise Name Ankle EV/IV/DF strengthening Side bilateral Equipment Used Lev 1 TB, & Towel roll btn knees for EV. Reps/Minutes 10 x 3 each Comments Phy assist for ex set up for EV/PF with towel roll. Standing Exercises ECC Ankle PF strengthening Standing Exercise Name ECC ankle PF strengthening Side bilateral Reps/Minutes 10x Comments Cuing needed to do a slow controlled return to start Self-Care/Home Management Treatment Education Patient Education Home Exercise Program Activities Self-Care/Home Management Activities Issued & reviewed HEP: Nurys Conrad, AB, AD. PT-OP-T Assessment and Plan Start: 01/20/22 17:31 Freq: Status: Active Protocol: Document 01/30/22 13:03 LRN (Rec: 01/30/22 13:47 [facility] [id number]) Physical Therapy Assessment Goals Three Impairment Decreased single leg balance and balance activities Impairment SLS: Left- 1sec, Right 4 secs . Tandem: 2 secs bilaterally. Turning 360 deg's in 4 secs bilaterally. Correction Goal (LTG) Improve SLS or tandem stance by 1-2 secs and pt on a home program to improve. LTG Duration 02/21/22 Two Impairment Decreased ankle strength Impairment PF strength is 4/5, with LOB backwards after ECC contraction (return to standing after on toes positioning). Short Term Goal (STG) Pt will be educated in TBand ankle ex's with focus on ECC strengthening with PF. STG Duration 01/24/22 (01/23/22: MET GOAL) Correction Goal (LTG) Pt will not lose her balance with return from ankle PF. LTG Duration 02/21/22 One Impairment Lacks appropriate self care HEP Impairment Valgus of knees: 10 deg's Right, 3 deg's Left. Short Term Goal (STG) HEP for hip strengthening to limit valgus of the R knee to improve posture. (01/30/22: Added HEP: sidelie hip AB/AD strengthening) STG Duration 01/30/22 (01/30/22: Progressed ) Continuous Washer Operator Goal (LTG) Pt will be independent in a self care HEP. 01/23/22: Issue: TBand ankle strengthening and ECC ankle PF strengthening, Lev2 TB issued . LTG Duration 02/21/22 (01/23/22: Progressed ) Assessment Summary Assessment Pt showed good recall of ex's with use of handouts, but did not have time to review sitting ECC hip AB. Pt very receptive to ex's and tolerating ex's without pain. She has a little trouble holding core steady with sidelie ex's. Physical Therapy Plan Frequency and Duration Frequency of Treatment 2x/Week Plan of Care Start Date 01/21/22 Plan of Care End Date 02/21/22 Next Visit Focus/Plan Next Note Type Treatment Note Next Visit Plan DOMINIQUE Hahn spoke with Anayeli Villarreal's staff on 01/21/22, follow up on Anayeli Villarreal adding diagnosis for balance due to weakness. Cont ECC ankle strengthening for ankle PF, and review sitting hip AB, sidelie clamshell, hip AB/AD HEP. Ex: Add progressive standing Hip AB/AD strengthening ex's to minimize R knee valgus and issue HEP. Balance: single leg stance activities (SLS, Tandem stance , and turning 360 deg's around ).
--- NOTE | 2022-02-04 09:52 | PT.OTN ---
Current Diagnoses Muscle weakness (generalized) (02/04/22) Age-related osteoporosis without current pathological fracture (02/04/22) Unsteadiness on feet (02/04/22) Physical Therapy Treatment Note PT-OP-A Visit Information Start: 01/20/22 17:31 Freq: Status: Active Protocol: Document 02/04/22 09:04 SP (Rec: 02/04/22 09:53 SP [id number]) Out-Patient Physical Therapy Visit Information Visit Information Visit Type Treatment Note Visit Start Time 09:04 Visit Stop Time 09:52 Total Visit Minutes 48 Visit Number 4 Number of RADIOLOGY SPECIALIST Visits 1 Evaluation Information Evaluation Date 01/21/22 Precautions Precautions 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 PT-OP-B Current Condition Start: 01/20/22 17:31 Freq: Status: Active Protocol: Document 01/21/22 15:14 LRN (Rec: 01/21/22 16:55 LRN [id number]) Current Condition History of Current Condition Onset Date 2 yrs ago Current Complaints Balance problem. Wasn't aware she had osteoporosis. History of Current Condition Pt states she was sent here by Anayeli Villarreal to help her not fall and her problem is balance. Pt is not sure why she is in Physical Therapy. Fell 2 yrs ago tripping over something in the yard. Has off/on R knee pain of unknown reason, heat made her pain go away. Prior Treatments and Tests None Treatment Goals Patient/Caregiver Goals PT goal is to improve balance to SLS for 10 sec. Pt agreeable to placment on HEP and LE strengthening Prior Functional Status Baseline Function- ADL's Independent Baseline Function- Mobility Independent Baseline Function- Gait Walk several blocks. Baseline Function- Other When weather gets cold bones and joints ache. Current Functional Impairments (Reported) Functional Limitations- ADL's Walks to mailbox and back. Yesterday walked 4 blocks. Functional Limitations- Mobility/Gait Walks without an assistive device. Functional Limitations- Recreation/ Does Chair Yoga. Hobbies Personal Factors Other Personal Factors That May Effect Lives by self. Therapy/Recovery PT-OP-C Subjective Start: 01/20/22 17:31 Freq: Status: Active Protocol: Document 02/04/22 09:04 SP (Rec: 02/04/22 09:53 SP [id number]) OP-PT Subjective Patient Comments Patient Comments Pt reported is compliant with supine HEP added last tx. She reported has to go to a friend 's house that has steep staircase outside with no rails and is fear of falling forward, has stick can use for support, wants to see if can practice in tx for more confidence and assist for best way to complete. PT-OP-J Posture/Palpation/Skin Start: 01/20/22 17:31 Freq: Status: Active Protocol: Document 01/21/22 15:14 LRN (Rec: 01/21/22 16:55 LRN [id number]) Posture Evaluation Position Standing T-Spine Posture Flexible Scoliosis on (R) Shoulder Posture (R) Forward,(L) Elevated Scapula Posture (R) Depressed Arm Posture (L) Neutral,(R) Neutral Pelvis Posture (L) Iliac Crest Superior Weight Distribution Balanced Ankle/Foot Posture (L) Forefoot Abducted,(R) Forefoot Abducted Comments Posture Comments Dowagers Hump, Small C-curve in T/S with apex on R. When pt bends her L knee her spine straightens. Valgus of knees: 10 deg's Right, 3 deg's Left . Palpation Assessment Location Leg length Palpation Location Supine: ASIS to distal medial malleolus. Palpation Details L 96 cm R 95.5 cm PT-OP-K Range of Motion Start: 01/20/22 17:31 Freq: Status: Active Protocol: Document 01/21/22 15:14 LRN (Rec: 01/21/22 16:55 LRN [id number]) Lumbar Spine Range of Motion Lumbar Spine Active Degrees Testing Position Standing Comments AROM is WFL. PT-OP-M Strength Start: 01/20/22 17:31 Freq: Status: Active Protocol: Document 01/21/22 15:14 LRN (Rec: 01/21/22 16:55 LRN [id number]) Trunk Strength Trunk Manual Muscle Testing Comments Strength is generally 4+/5 Ankle/Foot Strength Ankle and Foot Manual Muscle Testing Right Plantarflexion (S1) 4 Good Comments 5/5 except as indicated above. Pt has loss of balance on return from Plantarflexion in standing. Left Plantarflexion (S1) 4 Good Comments 5/5 except as indicated above. Pt has loss of balance on return from Plantarflexion in standing. PT-OP-Q Treatments Start: 01/20/22 17:31 Freq: Status: Active Protocol: Document 02/04/22 09:04 SP (Rec: 02/04/22 09:53 SP [id number]) Therapeutic Exercises Sidelying Exercises Clamshell Sidelying Exercise Name Clamshell Side right Reps/Minutes 10x Comments Cuing needed for proper form Hip AD Sidelying Exercise Name Hip AD Side right Comments Cuing needed for proper form Hip AB Sidelying Exercise Name Hip AB Side right Reps/Minutes 10x Comments Cuing needed for proper form Standing Exercises hip abd, ext Standing Exercise Name trialed in PT only- little L hip discomfort initailly ABD/ Glut Med Side bilateral Reps/Minutes 2x5 reps Comments cued tall posture, stationary LE glut engaged, no SB Other Exercises step up/ downs Other Exercise Name MAP Bldg stairs: centering balance during ascend/descend Resistance 28 stairs best with B trek poles Comments cued level pelvis, core fac, pole placement to allow stability Manual Therapy Treatment Soft Tissue Mobilization QL, piriformis, glut med Body Location L>R Comments manual, discussed ball wall, demonstrate next tx. Neuro Re-Education Treatment Balance Activities step downs Details trunk hip stability training. Comments time spent balance on stairs Self-Care/Home Management Treatment Education Patient Education Pain Management,Posture Other Education TIme spent education on hip abd and core with HEP to support balance and gait in community. Provided self and use of manual techniques to decrease hip muscle tightness having during HEP and gait. PT-OP-T Assessment and Plan Start: 01/20/22 17:31 Freq: Status: Active Protocol: Document 02/04/22 09:04 SP (Rec: 02/04/22 09:53 SP [id number]) Physical Therapy Assessment Goals Three Impairment Decreased single leg balance and balance activities Impairment SLS: Left- 1sec, Right 4 secs . Tandem: 2 secs bilaterally. Turning 360 deg's in 4 secs bilaterally. [facility] Peeler Goal (LTG) Improve SLS or tandem stance by 1-2 secs and pt on a home program to improve. LTG Duration 02/21/22 Two Impairment Decreased ankle strength Impairment PF strength is 4/5, with LOB backwards after ECC contraction (return to standing after on toes positioning). Short Term Goal (STG) Pt will be educated in TBand ankle ex's with focus on ECC strengthening with PF. STG Duration 01/24/22 (01/23/22: MET GOAL) [employer] Peeler Goal (LTG) Pt will not lose her balance with return from ankle PF. LTG Duration 02/21/22 One Impairment Lacks appropriate self care HEP Impairment Valgus of knees: 10 deg's Right, 3 deg's Left. Short Term Goal (STG) HEP for hip strengthening to limit valgus of the R knee to improve posture. (01/30/22: Added HEP: sidelie hip AB/AD strengthening) STG Duration 01/30/22 (01/30/22: Progressed ) Custodial Goal (LTG) Pt will be independent in a self care HEP. 01/23/22: Issue: TBand ankle strengthening and ECC ankle PF strengthening, Lev2 TB issued . LTG Duration 02/21/22 (01/23/22: Progressed ) Assessment Summary Assessment Pt responded well to balance training on stairs for more confidence use of B trek poles to attend event at friend's steep stairs no hand rails. Pt better understanding LE alignment, core and hip abd fac to decrease valgus knee alignment carry over with HEP performing. Occasional cues for stacked hip during clamshell and hp abd/ adduction. Physical Therapy Plan Frequency and Duration Frequency of Treatment 2x/Week Plan of Care Start Date 01/21/22 Plan of Care End Date 02/21/22 Therapeutic Interventions Therapeutic Interventions Balance Training,Home Exercise Program,Patient/Caregiver Education,Self-Care/Home Management,Therapeutic Exercises Next Visit Focus/Plan Next Note Type Treatment Note Next Visit Plan Add stretching, review HEP, assess how balance was on stairs at friend's house. DOMINIQUE Hahn spoke with Anayeli Villarreal's staff on 01/21/22, follow up on Anayeli Villarreal adding diagnosis for balance due to weakness. Cont ECC ankle strengthening for ankle PF, and review sitting hip AB, sidelie clamshell, hip AB/AD HEP. Ex: Add progressive standing Hip AB/AD strengthening ex's to minimize R knee valgus and issue HEP. Balance: single leg stance activities (SLS, Tandem stance , and turning 360 deg's around ).
--- NOTE | 2022-02-10 16:36 | PT-OP ANOTE ---
PACKAGE LIFT OPERATOR called Dr Younger's office, just spoke with Julia chowdhury and she stated already sent updated referral for adding balance but will resend again. PACKAGE LIFT OPERATOR provided PT dept fax #. PACKAGE LIFT OPERATOR spoke with schedulers to keep eye out for updated referral to allow therapy to incorporate balance in POC coverage, upload in pt's EMR.
--- NOTE | 2022-02-11 09:45 | PT.OTN ---
Current Diagnoses Muscle weakness (generalized) (02/11/22) Age-related osteoporosis without current pathological fracture (02/11/22) Unsteadiness on feet (02/11/22) Physical Therapy Treatment Note PT-OP-A Visit Information Start: 01/20/22 17:31 Freq: Status: Active Protocol: Document 02/11/22 09:01 SP (Rec: 02/11/22 09:47 SP [id number]) Out-Patient Physical Therapy Visit Information Visit Information Visit Type Treatment Note Visit Start Time 09:01 Visit Stop Time 09:45 Total Visit Minutes 44 Visit Number 5 Number of CENTRAL STERILE TECH Visits 2 Evaluation Information Evaluation Date 01/21/22 Precautions Precautions 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 PT-OP-B Current Condition Start: 01/20/22 17:31 Freq: Status: Active Protocol: Document 01/21/22 15:14 LRN (Rec: 01/21/22 16:55 LRN [id number]) Current Condition History of Current Condition Onset Date 2 yrs ago Current Complaints Balance problem. Wasn't aware she had osteoporosis. History of Current Condition Pt states she was sent here by Anayeli Villarreal to help her not fall and her problem is balance. Pt is not sure why she is in Physical Therapy. Fell 2 yrs ago tripping over something in the yard. Has off/on R knee pain of unknown reason, heat made her pain go away. Prior Treatments and Tests None Treatment Goals Patient/Caregiver Goals PT goal is to improve balance to SLS for 10 sec. Pt agreeable to placment on HEP and LE strengthening Prior Functional Status Baseline Function- ADL's Independent Baseline Function- Mobility Independent Baseline Function- Gait Walk several blocks. Baseline Function- Other When weather gets cold bones and joints ache. Current Functional Impairments (Reported) Functional Limitations- ADL's Walks to mailbox and back. Yesterday walked 4 blocks. Functional Limitations- Mobility/Gait Walks without an assistive device. Functional Limitations- Recreation/ Does Chair Yoga. Hobbies Personal Factors Other Personal Factors That May Effect Lives by self. Therapy/Recovery PT-OP-C Subjective Start: 01/20/22 17:31 Freq: Status: Active Protocol: Document 02/11/22 09:01 SP (Rec: 02/11/22 09:47 SP [id number]) OP-PT Subjective Patient Comments Patient Comments Pt reported had to only do her exercises 10 reps 2 sets due to 15 reps to much. She reports only on 1- 5mg tab statin right now to help with irregular heart beat. Pt stated didn't go to friend's house due to pretty windy and really nervous of falling knowing friend has many stairs without rail and not confident use of trek poles for support. Wants to continue towork on balance, gait and stairs for confidence to visit friend and walk more outdoors without fear falling. PT-OP-J Posture/Palpation/Skin Start: 01/20/22 17:31 Freq: Status: Active Protocol: Document 01/21/22 15:14 LRN (Rec: 01/21/22 16:55 LRN [id number]) Posture Evaluation Position Standing T-Spine Posture Flexible Scoliosis on (R) Shoulder Posture (R) Forward,(L) Elevated Scapula Posture (R) Depressed Arm Posture (L) Neutral,(R) Neutral Pelvis Posture (L) Iliac Crest Superior Weight Distribution Balanced Ankle/Foot Posture (L) Forefoot Abducted,(R) Forefoot Abducted Comments Posture Comments Dowagers Hump, Small C-curve in T/S with apex on R. When pt bends her L knee her spine straightens. Valgus of knees: 10 deg's Right, 3 deg's Left . Palpation Assessment Location Leg length Palpation Location Supine: ASIS to distal medial malleolus. Palpation Details L 96 cm R 95.5 cm PT-OP-K Range of Motion Start: 01/20/22 17:31 Freq: Status: Active Protocol: Document 01/21/22 15:14 LRN (Rec: 01/21/22 16:55 LRN [id number]) Lumbar Spine Range of Motion Lumbar Spine Active Degrees Testing Position Standing Comments AROM is WFL. PT-OP-M Strength Start: 01/20/22 17:31 Freq: Status: Active Protocol: Document 01/21/22 15:14 LRN (Rec: 01/21/22 16:55 LRN [id number]) Trunk Strength Trunk Manual Muscle Testing Comments Strength is generally 4+/5 Ankle/Foot Strength Ankle and Foot Manual Muscle Testing Right Plantarflexion (S1) 4 Good Comments 5/5 except as indicated above. Pt has loss of balance on return from Plantarflexion in standing. Left Plantarflexion (S1) 4 Good Comments 5/5 except as indicated above. Pt has loss of balance on return from Plantarflexion in standing. PT-OP-Q Treatments Start: 01/20/22 17:31 Freq: Status: Active Protocol: Document 02/11/22 09:01 SP (Rec: 02/11/22 09:47 SP [id number]) Therapeutic Exercises Supine Exercises fig 4 stretch Supine Exercise Name added to HEP- states tight adductor Side right Equipment Used TB around R ankle to support relax on L leg Reps/Minutes 1 min hold x3 Comments cued R ankle over L thight above knee, breath allow relax toward floor Sidelying Exercises Clamshell Sidelying Exercise Name Clamshell Side bilateral Equipment Used ties TB #1 around knees Reps/Minutes 20 reps Comments Cuing slow control Hip AD Sidelying Exercise Name Hip AD Side bilateral Reps/Minutes x10 Comments Cuing LE in line with trunk Hip AB Sidelying Exercise Name Hip AB Side bilateral Reps/Minutes 10x Comments Cuing for stacked hips on side Sitting Exercises sit to stands Sitting Exercise Name added to HEP Reps/Minutes 5 reps Comments cues for knees apart arms front for now. Standing Exercises lateral band walk Standing Exercise Name review past HEP, didn't get to 02/11 Resistance YTB Neuro Re-Education Treatment Balance Activities balance Details 1. SLS, 2. Tandem 3. 360 turn timed Comments 1. SLS RLE 5, 7 sec; LLE unable to lift longer than 1 sec. 2.Tandem RLE forward 20 sec, LLE forward 30sec; 360 deg turn 4 sec. 3.360 [place] 4 sec, no improvement. Self-Care/Home Management Treatment Education Patient Education Home Exercise Program Other Education Initiated STS and fig 4 stretch R>L tight, assessed SLS/tandem goal add to HEP future tx. PT-OP-T Assessment and Plan Start: 01/20/22 17:31 Freq: Status: Active Protocol: Document 02/11/22 09:01 SP (Rec: 02/11/22 09:47 SP [id number]) Physical Therapy Assessment Goals Three Impairment Decreased single leg balance and balance activities Impairment SLS: Left- 1sec, Right 4 secs . Tandem: 2 secs bilaterally. Turning 360 deg's in 4 secs bilaterally. Financial Brokers Goal (LTG) Improve SLS or tandem stance by 1-2 secs and pt on a home program to improve. 02/11/22: progressing: SLS RLE 5, 7 sec; LLE unable to lift longer than 1 sec.360 [place] 4 sec, no improvement. Tandem RLE forward 20 sec, LLE forward 30sec; 360 deg turn 4 sec. LTG Duration 02/21/22 progressin02/11/22 Two Impairment Decreased ankle strength Impairment PF strength is 4/5, with LOB backwards after ECC contraction (return to standing after on toes positioning). Short Term Goal (STG) Pt will be educated in TBand ankle ex's with focus on ECC strengthening with PF. STG Duration 01/24/22 (01/23/22: MET GOAL) Financial Brokers Goal (LTG) Pt will not lose her balance with return from ankle PF. LTG Duration 02/21/22 One Impairment Lacks appropriate self care HEP Impairment Valgus of knees: 10 deg's Right, 3 deg's Left. Short Term Goal (STG) HEP for hip strengthening to limit valgus of the R knee to improve posture. (01/30/22: Added HEP: sidelie hip AB/AD strengthening) 02/11/22: added fig 4 stretch, STS. STG Duration 01/30/22 (02/11/22: Progressed) Mcfp Goal (LTG) Pt will be independent in a self care HEP. 01/23/22: Issue: TBand ankle strengthening and ECC ankle PF strengthening, Lev2 TB issued . 02/11/22: added supine fig 4 R> LLE stretch, seated STS LTG Duration 02/21/22 (02/11/22: Progressed) Assessment Summary Assessment Pt increased R hip ER post fig 4 stretch with support of TB on R ankle to allow relax. Pt improved STS with arms in front, improved knees apart post cues and fig 4 stretch. Occasional cues for stacked hips during ABD/ ADD on side. Pt requests to work more on standing activities incorporating strength and balance to allow manage stairs and walk further distances. Physical Therapy Plan Frequency and Duration Frequency of Treatment 2x/Week Plan of Care Start Date 01/21/22 Plan of Care End Date 02/21/22 Therapeutic Interventions Therapeutic Interventions Balance Training,Home Exercise Program,Patient/Caregiver Education,Self-Care/Home Management,Therapeutic Exercises Next Visit Focus/Plan Next Note Type Progress Note Next Visit Plan Add stretching, gait/balance goals toward funcitonal community gait/stairs per pt personal goals. review HEP. Review STS, fig 4 stretch R>L. POC: Cont ECC ankle strengthening for ankle PF, and review sitting hip AB, sidelie clamshell, hip AB/AD HEP. Ex: Add progressive standing Hip AB/AD strengthening ex's to minimize R knee valgus and issue HEP. Balance: single leg stance activities (SLS, Tandem stance , and turning 360 deg's around ).
--- NOTE | 2022-02-21 17:49 | PT.OTN ---
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 PT-OP-B Current Condition Start: 01/20/22 17:31 Freq: Status: Active Protocol: Document 01/21/22 15:14 LRN (Rec: 01/21/22 16:55 LRN [id number]) Current Condition History of Current Condition Onset Date 2 yrs ago Current Complaints Balance problem. Wasn't aware she had osteoporosis. History of Current Condition Pt states she was sent here by Anayeli Villarreal to help her not fall and her problem is balance. Pt is not sure why she is in Physical Therapy. Fell 2 yrs ago tripping over something in the yard. Has off/on R knee pain of unknown reason, heat made her pain go away. Prior Treatments and Tests None Treatment Goals Patient/Caregiver Goals PT goal is to improve balance to SLS for 10 sec. Pt agreeable to placment on HEP and LE strengthening Prior Functional Status Baseline Function- ADL's Independent Baseline Function- Mobility Independent Baseline Function- Gait Walk several blocks. Baseline Function- Other When weather gets cold bones and joints ache. Current Functional Impairments (Reported) Functional Limitations- ADL's Walks to mailbox and back. Yesterday walked 4 blocks. Functional Limitations- Mobility/Gait Walks without an assistive device. Functional Limitations- Recreation/ Does Chair Yoga. Hobbies Personal Factors Other Personal Factors That May Effect Lives by self. Therapy/Recovery PT-OP-C Subjective Start: 01/20/22 17:31 Freq: Status: Active Protocol: Document 02/21/22 09:49 LRN (Rec: 02/21/22 10:32 LRN [id number]) OP-PT Subjective Patient Comments Patient Comments Pt want to go through her HEP. States being able to do hip strengthening ex's has helped with her balance. PT-OP-D Balance Start: 02/21/22 17:38 Freq: Status: Active Protocol: Document 02/21/22 09:49 LRN (Rec: 02/21/22 17:40 LRN [id number]) Balance Tests Tandem Tandem Standing 15 secs with L and R foot behind PT-OP-J Posture/Palpation/Skin Start: 01/20/22 17:31 Freq: Status: Active Protocol: Document 01/21/22 15:14 LRN (Rec: 01/21/22 16:55 LRN [id number]) Posture Evaluation Position Standing T-Spine Posture Flexible Scoliosis on (R) Shoulder Posture (R) Forward,(L) Elevated Scapula Posture (R) Depressed Arm Posture (L) Neutral,(R) Neutral Pelvis Posture (L) Iliac Crest Superior Weight Distribution Balanced Ankle/Foot Posture (L) Forefoot Abducted,(R) Forefoot Abducted Comments Posture Comments Dowagers Hump, Small C-curve in T/S with apex on R. When pt bends her L knee her spine straightens. Valgus of knees: 10 deg's Right, 3 deg's Left . Palpation Assessment Location Leg length Palpation Location Supine: ASIS to distal medial malleolus. Palpation Details L 96 cm R 95.5 cm PT-OP-K Range of Motion Start: 01/20/22 17:31 Freq: Status: Active Protocol: Document 01/21/22 15:14 LRN (Rec: 01/21/22 16:55 LRN [id number]) Lumbar Spine Range of Motion Lumbar Spine Active Degrees Testing Position Standing Comments AROM is WFL. PT-OP-M Strength Start: 01/20/22 17:31 Freq: Status: Active Protocol: Document 01/21/22 15:14 LRN (Rec: 01/21/22 16:55 LRN [id number]) Trunk Strength Trunk Manual Muscle Testing Comments Strength is generally 4+/5 Ankle/Foot Strength Ankle and Foot Manual Muscle Testing Right Plantarflexion (S1) 4 Good Comments 5/5 except as indicated above. Pt has loss of balance on return from Plantarflexion in standing. Left Plantarflexion (S1) 4 Good Comments 5/5 except as indicated above. Pt has loss of balance on return from Plantarflexion in standing. PT-OP-Q Treatments Start: 01/20/22 17:31 Freq: Status: Active Protocol: Document 02/21/22 09:49 LRN (Rec: 02/21/22 10:32 LRN [id number]) Therapeutic Exercises Sitting Exercises Fig 4 stretch Sitting Exercise Name Fig 4 stretch Side bilateral Reps/Minutes 60 x 1 sit to stands Sitting Exercise Name Sit<>Stand - HEP Reps/Minutes 10x 2 Comments cues for knees apart arms front for now. Standing Exercises ECC Ankle PF strengthening Standing Exercise Name ECC ankle PF strengthening Side bilateral Reps/Minutes 10x 2 with one standing rest Comments Cuing needed to do a slow controlled return to start Neuro Re-Education Treatment Balance Activities Corner balance Details SLS, Tandem: With and without shoes. Surface Level Equipment Corner, chair Reps/Duration 5' Self-Care/Home Management Treatment Education Patient Education Home Exercise Program Other Education Reviewed her HEP. PT-OP-T Assessment and Plan Start: 01/20/22 17:31 Freq: Status: Active Protocol: Document 02/21/22 09:49 LRN (Rec: 02/21/22 10:32 LRN [id number]) Physical Therapy Assessment Rehab Potential Rehabilitation Potential Excellent Evaluation Complexity Number of Personal Factors/Comorbidities 1-2 Number of Body Systems Impaired 3 Clinical Presentation at Evaluation Evolving Impairments Impairments Balance,Gait,Posture,Soft Tissue Mobility,Strength Goals Three Impairment Decreased single leg balance and balance activities Impairment SLS: Left- 1sec, Right 4 secs . Tandem: 2 secs bilaterally. Turning 360 deg's in 4 secs bilaterally. Short Term Goal (STG) Pt will report improved confidence in stair ambulation . STG Duration 03/07/22 Assurance Manager Goal (LTG) Improve SLS or tandem stance by 1-2 secs and pt on a home program to improve. 02/11/22: progressing: SLS RLE 5, 7 sec; LLE unable to lift longer than 1 sec.360 [place] 4 sec, no improvement. Tandem RLE forward 20 sec, LLE forward 30sec; 360 deg turn 4 sec. 02/20/22: SLS is 3 secs bilaterally, Tandem stance is 15 sec with L & R foot behind. LTG Duration 04/11/22 (02/21/22: Progressing) Two Impairment Decreased ankle strength Impairment PF strength is 4/5, with LOB backwards after ECC contraction (return to standing after on toes positioning). Short Term Goal (STG) Pt will be educated in TBand ankle ex's with focus on ECC strengthening with PF. STG Duration 01/24/22 (01/23/22: MET GOAL) Shelter Goal (LTG) Pt will not lose her balance with return from ankle PF. LTG Duration 02/21/22 (02/21/22: MET GOAL) One Impairment Lacks appropriate self care HEP Impairment Valgus of knees: 10 deg's Right, 3 deg's Left. Short Term Goal (STG) HEP for hip strengthening to limit valgus of the R knee to improve posture. (01/30/22: Added HEP: sidelie hip AB/AD strengthening) 02/11/22: added fig 4 stretch, STS. STG Duration 01/30/22 (02/21/22: MET GOAL) Shelter Goal (LTG) Pt will be independent in a self care HEP. 01/23/22: Issue: TBand ankle strengthening and ECC ankle PF strengthening, Lev2 TB issued . 02/11/22: added supine fig 4 R> LLE stretch, seated STS LTG Duration 04/11/22 (02/11/22: Progressed) Assessment Summary Assessment Pt is progressing nicely with therapy. She has improved her ankle and hip strength and overall her balance and feeling of stability with gait is improved. Pt is having no pxs with ankle ex's and is now able to do 10x 3 sets of exercises. She struggles with fig 4 mobility ex's due to tightness still present. Sit <>Stands are difficulty due to low endurance, pt completing 10x 2 sets resulting in SOB. Pt shows increased ankle PF strength with ability to perform ECC contraction on return for up on toes without LOB backward, 1x forward. She has improved her SLS time on the L from 1 to 3 secs (R SLS is 3 secs). She is very complaint with her HEP. Pt will benefit from continued skilled physical therapy to achieve the above stated goals and to also work on balance, neuro re-education and gait. Physical Therapy Plan Frequency and Duration Frequency of Treatment 2x/Week Plan of Care Start Date 02/21/22 Plan of Care End Date 04/11/22 Therapeutic Interventions Therapeutic Interventions Balance Training,Gait Training ,Home Exercise Program,Manual Therapy,Neuromuscular Re- education,Patient/Caregiver Education,Self-Care/Home Management,Therapeutic Exercises Next Visit Focus/Plan Next Note Type Treatment Note Next Visit Plan Add stretching, gait/balance goals toward funcitonal community gait/stairs per pt personal goals. review HEP. Review STS, fig 4 stretch R>L. POC: Cont ECC ankle strengthening for ankle PF, and review sitting hip AB, sidelie clamshell, hip AB/AD HEP. Ex: Add progressive standing Hip AB/AD strengthening ex's to minimize R knee valgus and issue HEP. Balance: single leg stance activities (SLS, Tandem stance , and turning 360 deg's around ).
--- NOTE | 2022-02-21 17:50 | PT.OPPOC ---
Addendum entered and electronically signed by Cherry Ricardo, PT 02/21/22 17:50: Resend to provider Original Note: Physical, Occupational & Speech Therapy At [facility] Current Diagnoses Muscle weakness (generalized) (02/21/22) Age-related osteoporosis without current pathological fracture (02/21/22) Unsteadiness on feet (02/21/22) Visit Care Team Role Provider Type DENNY Gamboa Attending Provider Advanced [employer]aya[employer] Clerk Family Provider Primary Care Provider Referring Provider Specialty: Family Practice Address: [address] [place] [address], [address] Email: [email or web address] Plan Of Care PT-OP-T Assessment and Plan Start: 01/20/22 17:31 Freq: Status: Active Protocol: Document 02/21/22 09:49 LRN (Rec: 02/21/22 10:32 LRN [id number]) Physical Therapy Assessment Rehab Potential Rehabilitation Potential Excellent Evaluation Complexity Number of Personal Factors/Comorbidities 1-2 Number of Body Systems Impaired 3 Clinical Presentation at Evaluation Evolving Impairments Impairments Balance,Gait,Posture,Soft Tissue Mobility,Strength Goals Three Impairment Decreased single leg balance and balance activities Impairment SLS: Left- 1sec, Right 4 secs . Tandem: 2 secs bilaterally. Turning 360 deg's in 4 secs bilaterally. Short Term Goal (STG) Pt will report improved confidence in stair ambulation . STG Duration 03/07/22 Document Manager Goal (LTG) Improve SLS or tandem stance by 1-2 secs and pt on a home program to improve. 02/11/22: progressing: SLS RLE 5, 7 sec; LLE unable to lift longer than 1 sec.360 [place] 4 sec, no improvement. Tandem RLE forward 20 sec, LLE forward 30sec; 360 deg turn 4 sec. 02/20/22: SLS is 3 secs bilaterally, Tandem stance is 15 sec with L & R foot behind. LTG Duration 04/11/22 (02/21/22: Progressing) Two Impairment Decreased ankle strength Impairment PF strength is 4/5, with LOB backwards after ECC contraction (return to standing after on toes positioning). Short Term Goal (STG) Pt will be educated in TBand ankle ex's with focus on ECC strengthening with PF. STG Duration 01/24/22 (01/23/22: MET GOAL) Long-Term Goal (LTG) Pt will not lose her balance with return from ankle PF. LTG Duration 02/21/22 (02/21/22: MET GOAL) One Impairment Lacks appropriate self care HEP Impairment Valgus of knees: 10 deg's Right, 3 deg's Left. Short Term Goal (STG) HEP for hip strengthening to limit valgus of the R knee to improve posture. (01/30/22: Added HEP: sidelie hip AB/AD strengthening) 02/11/22: added fig 4 stretch, STS. STG Duration 01/30/22 (02/21/22: MET GOAL) Document Manager Goal (LTG) Pt will be independent in a self care HEP. 01/23/22: Issue: TBand ankle strengthening and ECC ankle PF strengthening, Lev2 TB issued . 02/11/22: added supine fig 4 R> LLE stretch, seated STS LTG Duration 04/11/22 (02/11/22: Progressed) Assessment Summary Assessment Pt is progressing nicely with therapy. She has improved her ankle and hip strength and overall her balance and feeling of stability with gait is improved. Pt is having no pxs with ankle ex's and is now able to do 10x 3 sets of exercises. She struggles with fig 4 mobility ex's due to tightness still present. Sit <>Stands are difficulty due to low endurance, pt completing 10x 2 sets resulting in SOB. Pt shows increased ankle PF strength with ability to perform ECC contraction on return for up on toes without LOB backward, 1x forward. She has improved her SLS time on the L from 1 to 3 secs (R SLS is 3 secs). She is very complaint with her HEP. Pt will benefit from continued skilled physical therapy to achieve the above stated goals and to also work on balance, neuro re-education and gait. Physical Therapy Plan Frequency and Duration Frequency of Treatment 2x/Week Plan of Care Start Date 02/21/22 Plan of Care End Date 04/11/22 Therapeutic Interventions Therapeutic Interventions Balance Training,Gait Training ,Home Exercise Program,Manual Therapy,Neuromuscular Re- education,Patient/Caregiver Education,Self-Care/Home Management,Therapeutic Exercises Next Visit Focus/Plan Next Note Type Treatment Note Next Visit Plan Add stretching, gait/balance goals toward funcitonal community gait/stairs per pt personal goals. review HEP. Review STS, fig 4 stretch R>L. POC: Cont ECC ankle strengthening for ankle PF, and review sitting hip AB, sidelie clamshell, hip AB/AD HEP. Ex: Add progressive standing Hip AB/AD strengthening ex's to minimize R knee valgus and issue HEP. Balance: single leg stance activities (SLS, Tandem stance , and turning 360 deg's around ). Plan of Care Dates Plan of Care Start Date 02/21/22 Plan of Care End Date 04/11/22 Electronically Signed by: Cherry Ricardo, PT 02/21/22 [id number] If you are in agreement with this Plan of Care, please return a signed and dated copy. I have reviewed this Plan of Care and certify that the skilled therapy services above are required to meet the patient?s needs. Physician Signature Date Printed Name and Credentials Clinical Instructor Signature Printed Name and Credentials
--- NOTE | 2022-03-11 09:00 | PT.OTN ---
Current Diagnoses Muscle weakness (generalized) (03/11/22) Age-related osteoporosis without current pathological fracture (03/11/22) Unsteadiness on feet (03/11/22) Physical Therapy Treatment Note PT-OP-A Visit Information Start: 01/20/22 17:31 Freq: Status: Active Protocol: Document 03/11/22 08:14 SP (Rec: 03/11/22 09:04 SP [id number]) Out-Patient Physical Therapy Visit Information Visit Information Visit Type Treatment Note Visit Start Time 08:15 Visit Stop Time 09:00 Total Visit Minutes 45 Visit Number 7 Number of MARKETING REPRESENTATIVE Visits 1 Evaluation Information Evaluation Date 01/21/22 Precautions Precautions 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 PT-OP-B Current Condition Start: 01/20/22 17:31 Freq: Status: Active Protocol: Document 01/21/22 15:14 LRN (Rec: 01/21/22 16:55 LRN [id number]) Current Condition History of Current Condition Onset Date 2 yrs ago Current Complaints Balance problem. Wasn't aware she had osteoporosis. History of Current Condition Pt states she was sent here by Anayeli Villarreal to help her not fall and her problem is balance. Pt is not sure why she is in Physical Therapy. Fell 2 yrs ago tripping over something in the yard. Has off/on R knee pain of unknown reason, heat made her pain go away. Prior Treatments and Tests None Treatment Goals Patient/Caregiver Goals PT goal is to improve balance to SLS for 10 sec. Pt agreeable to placment on HEP and LE strengthening Prior Functional Status Baseline Function- ADL's Independent Baseline Function- Mobility Independent Baseline Function- Gait Walk several blocks. Baseline Function- Other When weather gets cold bones and joints ache. Current Functional Impairments (Reported) Functional Limitations- ADL's Walks to mailbox and back. Yesterday walked 4 blocks. Functional Limitations- Mobility/Gait Walks without an assistive device. Functional Limitations- Recreation/ Does Chair Yoga. Hobbies Personal Factors Other Personal Factors That May Effect Lives by self. Therapy/Recovery PT-OP-C Subjective Start: 01/20/22 17:31 Freq: Status: Active Protocol: Document 03/11/22 08:14 SP (Rec: 03/11/22 09:04 SP [id number]) OP-PT Subjective Patient Comments Patient Comments Pt stated was out of town then busy with sick grand child, compliant with HEP and thinks they are really helping her balance/strength. Pt stated did [place] walking through airport. PT-OP-D Balance Start: 02/21/22 17:38 Freq: Status: Active Protocol: Document 02/21/22 09:49 LRN (Rec: 02/21/22 17:40 LRN [id number]) Balance Tests Tandem Tandem Standing 15 secs with L and R foot behind PT-OP-J Posture/Palpation/Skin Start: 01/20/22 17:31 Freq: Status: Active Protocol: Document 01/21/22 15:14 LRN (Rec: 01/21/22 16:55 LRN [id number]) Posture Evaluation Position Standing T-Spine Posture Flexible Scoliosis on (R) Shoulder Posture (R) Forward,(L) Elevated Scapula Posture (R) Depressed Arm Posture (L) Neutral,(R) Neutral Pelvis Posture (L) Iliac Crest Superior Weight Distribution Balanced Ankle/Foot Posture (L) Forefoot Abducted,(R) Forefoot Abducted Comments Posture Comments Dowagers Hump, Small C-curve in T/S with apex on R. When pt bends her L knee her spine straightens. Valgus of knees: 10 deg's Right, 3 deg's Left . Palpation Assessment Location Leg length Palpation Location Supine: ASIS to distal medial malleolus. Palpation Details L 96 cm R 95.5 cm PT-OP-K Range of Motion Start: 01/20/22 17:31 Freq: Status: Active Protocol: Document 01/21/22 15:14 LRN (Rec: 01/21/22 16:55 LRN [id number]) Lumbar Spine Range of Motion Lumbar Spine Active Degrees Testing Position Standing Comments AROM is WFL. PT-OP-M Strength Start: 01/20/22 17:31 Freq: Status: Active Protocol: Document 01/21/22 15:14 LRN (Rec: 01/21/22 16:55 LRN [id number]) Trunk Strength Trunk Manual Muscle Testing Comments Strength is generally 4+/5 Ankle/Foot Strength Ankle and Foot Manual Muscle Testing Right Plantarflexion (S1) 4 Good Comments 5/5 except as indicated above. Pt has loss of balance on return from Plantarflexion in standing. Left Plantarflexion (S1) 4 Good Comments 5/5 except as indicated above. Pt has loss of balance on return from Plantarflexion in standing. PT-OP-Q Treatments Start: 01/20/22 17:31 Freq: Status: Active Protocol: Document 03/11/22 08:14 SP (Rec: 03/11/22 09:04 SP [id number]) Gym Equipment Shuttle Recovery unilateral squat Details cued knee alignment Resistance 25# RLE, 25 #>37# after 2 reps easy Shuttle Recovery Platform Stable Reps/Time x10 Bilateral Squats Details cued knees // with mid foot Resistance 62# Shuttle Recovery Platform Stable Reps/Time 2x10 Therapeutic Exercises Sitting Exercises self STMs Sitting Exercise Name added to HEP for decrease muscle tension on knee Side bilateral Equipment Used calf, quad, HS, adductor, ITB Reps/Minutes 2 min Comments good feedback response sit to stands Sitting Exercise Name Sit<>Stand - HEP Reps/Minutes 10x 2 Comments cues for knees apart arms front for now. Hip AB Sitting Exercise Name AB strengthening Side bilateral Equipment Used R TB Reps/Minutes 5 SH, increased 15 reps 03/11 Comments good form and feedback ECC Ankle PF strenthening Sitting Exercise Name ECC ankle PF strengthening Side bilateral Equipment Used Lv1 >L2 TB long loop Reps/Minutes x20 Comments cued slow motion control 3-way ankle strengthening Sitting Exercise Name Ankle EV/IV/DF strengthening Side bilateral Resistance TB #1>TB #2 Equipment Used towel roll betwn BLEs Reps/Minutes 10 x 3 each Comments Phy assist for ex set up for EV/PF with towel roll. Standing Exercises lateral band walk Standing Exercise Name added to HEP Resistance TB #2 loop at mid shins Reps/Minutes 20 ft x3 laps Comments cued feet //, clear trail LE, Neuro Re-Education Treatment Balance Activities hurdles Details step to fwd, lateral, step over step fwd Equipment 6 hurdles Reps/Duration 20 ft x3 laps each direction Comments cued posturing over stance LE, core fac, slow eccentric step - improved bal/stability SLS Comments RLE 5 sec, LLE 3 sec Self-Care/Home Management Treatment Education Patient Education Home Exercise Program Other Education added band walk, STMs on LEs for massage decreased muscle tension. PT-OP-T Assessment and Plan Start: 01/20/22 17:31 Freq: Status: Active Protocol: Document 03/11/22 08:14 SP (Rec: 03/11/22 09:04 SP [id number]) Physical Therapy Assessment Goals Three Impairment Decreased single leg balance and balance activities Impairment SLS: Left- 1sec, Right 4 secs . Tandem: 2 secs bilaterally. Turning 360 deg's in 4 secs bilaterally. Short Term Goal (STG) Pt will report improved confidence in stair ambulation . STG Duration 03/07/22 Care Home Goal (LTG) Improve SLS or tandem stance by 1-2 secs and pt on a home program to improve. 02/11/22: progressing: SLS RLE 5, 7 sec; LLE unable to lift longer than 1 sec.360 [place] 4 sec, no improvement. Tandem RLE forward 20 sec, LLE forward 30sec; 360 deg turn 4 sec. 02/20/22: SLS is 3 secs bilaterally, Tandem stance is 15 sec with L & R foot behind. 03/11/22: RLE 5 sec, LLE 3 sec LTG Duration 04/11/22 (03/11/22: Progressing) Two Impairment Decreased ankle strength Impairment PF strength is 4/5, with LOB backwards after ECC contraction (return to standing after on toes positioning). Short Term Goal (STG) Pt will be educated in TBand ankle ex's with focus on ECC strengthening with PF. STG Duration 01/24/22 (01/23/22: MET GOAL) Care Home Goal (LTG) Pt will not lose her balance with return from ankle PF. LTG Duration 02/21/22 (02/21/22: MET GOAL) One Impairment Lacks appropriate self care HEP Impairment Valgus of knees: 10 deg's Right, 3 deg's Left. Short Term Goal (STG) HEP for hip strengthening to limit valgus of the R knee to improve posture. (01/30/22: Added HEP: sidelie hip AB/AD strengthening) 02/11/22: added fig 4 stretch, STS. STG Duration 01/30/22 (02/21/22: MET GOAL) Occupational Therapy Assistant Goal (LTG) Pt will be independent in a self care HEP. 01/23/22: Issue: TBand ankle strengthening and ECC ankle PF strengthening, Lev2 TB issued . 02/11/22: added supine fig 4 R> LLE stretch, seated STS 03/11/22: added band walk LTG Duration 04/11/22 (03/11/22: Progressed) Assessment Summary Assessment Pt improved stance time during jing stepping post HEP including added band walks to HEP with recruitment of core and hip abd facilitation with cues for alignment over stance LE. Physical Therapy Plan Frequency and Duration Frequency of Treatment 2x/Week Plan of Care Start Date 02/21/22 Plan of Care End Date 04/11/22 Therapeutic Interventions Therapeutic Interventions Balance Training,Gait Training ,Home Exercise Program,Manual Therapy,Neuromuscular Re- education,Patient/Caregiver Education,Self-Care/Home Management,Therapeutic Exercises Next Visit Focus/Plan Next Note Type Treatment Note Next Visit Plan Recheck band walk, continue STS and hurdles, Add step ups next tx. POC: add stretching, gait/ balance goals toward funcitonal community gait/ stairs per pt personal goals. review HEP. Review fig 4 stretch R>L. POC: Cont ECC ankle strengthening for ankle PF, and review sitting hip AB, sidelie clamshell, hip AB/AD HEP. Ex: Add progressive standing Hip AB/AD strengthening ex's to minimize R knee valgus and issue HEP. Balance: single leg stance activities (SLS, Tandem stance , and turning 360 deg's around ).
--- NOTE | 2022-03-21 15:14 | PT.OTN ---
Current Diagnoses Muscle weakness (generalized) (03/21/22) Age-related osteoporosis without current pathological fracture (03/21/22) Unsteadiness on feet (03/21/22) Physical Therapy Treatment Note PT-OP-A Visit Information Start: 01/20/22 17:31 Freq: Status: Active Protocol: Document 03/21/22 09:46 LRN (Rec: 03/21/22 10:33 LRN [id number]) Out-Patient Physical Therapy Visit Information Visit Information Visit Type Treatment Note Visit Note Pt choosing to attend therapy 1x/week. 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 PT-OP-B Current Condition Start: 01/20/22 17:31 Freq: Status: Active Protocol: Document 01/21/22 15:14 LRN (Rec: 01/21/22 16:55 LRN [id number]) Current Condition History of Current Condition Onset Date 2 yrs ago Current Complaints Balance problem. Wasn't aware she had osteoporosis. History of Current Condition Pt states she was sent here by Anayeli Villarreal to help her not fall and her problem is balance. Pt is not sure why she is in Physical Therapy. Fell 2 yrs ago tripping over something in the yard. Has off/on R knee pain of unknown reason, heat made her pain go away. Prior Treatments and Tests None Treatment Goals Patient/Caregiver Goals PT goal is to improve balance to SLS for 10 sec. Pt agreeable to placment on HEP and LE strengthening Prior Functional Status Baseline Function- ADL's Independent Baseline Function- Mobility Independent Baseline Function- Gait Walk several blocks. Baseline Function- Other When weather gets cold bones and joints ache. Current Functional Impairments (Reported) Functional Limitations- ADL's Walks to mailbox and back. Yesterday walked 4 blocks. Functional Limitations- Mobility/Gait Walks without an assistive device. Functional Limitations- Recreation/ Does Chair Yoga. Hobbies Personal Factors Other Personal Factors That May Effect Lives by self. Therapy/Recovery PT-OP-C Subjective Start: 01/20/22 17:31 Freq: Status: Active Protocol: Document 03/21/22 09:46 LRN (Rec: 03/21/22 10:33 LRN [id number]) OP-PT Subjective Patient Comments Patient Comments Was in [place] and had to stay to take care of grandchild. Did balance ex's. PT-OP-D Balance Start: 02/21/22 17:38 Freq: Status: Active Protocol: Document 02/21/22 09:49 LRN (Rec: 02/21/22 17:40 LRN [id number]) Balance Tests Tandem Tandem Standing 15 secs with L and R foot behind PT-OP-J Posture/Palpation/Skin Start: 01/20/22 17:31 Freq: Status: Active Protocol: Document 01/21/22 15:14 LRN (Rec: 01/21/22 16:55 LRN [id number]) Posture Evaluation Position Standing T-Spine Posture Flexible Scoliosis on (R) Shoulder Posture (R) Forward,(L) Elevated Scapula Posture (R) Depressed Arm Posture (L) Neutral,(R) Neutral Pelvis Posture (L) Iliac Crest Superior Weight Distribution Balanced Ankle/Foot Posture (L) Forefoot Abducted,(R) Forefoot Abducted Comments Posture Comments Dowagers Hump, Small C-curve in T/S with apex on R. When pt bends her L knee her spine straightens. Valgus of knees: 10 deg's Right, 3 deg's Left . Palpation Assessment Location Leg length Palpation Location Supine: ASIS to distal medial malleolus. Palpation Details L 96 cm R 95.5 cm PT-OP-K Range of Motion Start: 01/20/22 17:31 Freq: Status: Active Protocol: Document 01/21/22 15:14 LRN (Rec: 01/21/22 16:55 LRN [id number]) Lumbar Spine Range of Motion Lumbar Spine Active Degrees Testing Position Standing Comments AROM is WFL. PT-OP-M Strength Start: 01/20/22 17:31 Freq: Status: Active Protocol: Document 01/21/22 15:14 LRN (Rec: 01/21/22 16:55 LRN [id number]) Trunk Strength Trunk Manual Muscle Testing Comments Strength is generally 4+/5 Ankle/Foot Strength Ankle and Foot Manual Muscle Testing Right Plantarflexion (S1) 4 Good Comments 5/5 except as indicated above. Pt has loss of balance on return from Plantarflexion in standing. Left Plantarflexion (S1) 4 Good Comments 5/5 except as indicated above. Pt has loss of balance on return from Plantarflexion in standing. PT-OP-Q Treatments Start: 01/20/22 17:31 Freq: Status: Active Protocol: Document 03/21/22 09:46 LRN (Rec: 03/21/22 10:33 LRN [id number]) Therapeutic Exercises Sitting Exercises ECC Ankle PF strenthening Sitting Exercise Name ECC ankle PF strengthening Side bilateral Equipment Used Lv1 >L2 TB long loop Reps/Minutes x20 Comments cued slow motion control Standing Exercises lateral band walk Standing Exercise Name added to HEP Resistance TB #2 loop at mid shins and above knees Reps/Minutes 16' Comments cued feet //, knees apart ( hip AB's working), knees straight ECC Ankle PF strengthening Standing Exercise Name ECC ankle PF and hip AB strengthening Side bilateral Equipment Used // bars, Lev 2 TB above knees Reps/Minutes 10x each Comments Cuing knees apart, toes forward, & slow controlled return to start Neuro Re-Education Treatment Balance Activities hurdles Details step to fwd, lateral, step over step fwd Equipment 6 hurdles Reps/Duration 20 ft x3 laps each direction Comments cued posturing over stance LE, core fac, slow eccentric step - improved bal/stability PT-OP-T Assessment and Plan Start: 01/20/22 17:31 Freq: Status: Active Protocol: Document 03/21/22 09:46 LRN (Rec: 03/21/22 10:33 LRN [id number]) Physical Therapy Assessment Goals Three Impairment Decreased single leg balance and balance activities Impairment SLS: Left- 1sec, Right 4 secs . Tandem: 2 secs bilaterally. Turning 360 deg's in 4 secs bilaterally. Short Term Goal (STG) Pt will report improved confidence in stair ambulation . STG Duration 03/07/22 Care Home Goal (LTG) Improve SLS or tandem stance by 1-2 secs and pt on a home program to improve. 02/11/22: progressing: SLS RLE 5, 7 sec; LLE unable to lift longer than 1 sec.360 [place] 4 sec, no improvement. Tandem RLE forward 20 sec, LLE forward 30sec; 360 deg turn 4 sec. 02/20/22: SLS is 3 secs bilaterally, Tandem stance is 15 sec with L & R foot behind. 03/11/22: RLE 5 sec, LLE 3 sec LTG Duration 04/11/22 (03/11/22: Progressing) Two Impairment Decreased ankle strength Impairment PF strength is 4/5, with LOB backwards after ECC contraction (return to standing after on toes positioning). Short Term Goal (STG) Pt will be educated in TBand ankle ex's with focus on ECC strengthening with PF. STG Duration 01/24/22 (01/23/22: MET GOAL) Melting Operator Goal (LTG) Pt will not lose her balance with return from ankle PF. LTG Duration 02/21/22 (02/21/22: MET GOAL) One Impairment Lacks appropriate self care HEP Impairment Valgus of knees: 10 deg's Right, 3 deg's Left. Short Term Goal (STG) HEP for hip strengthening to limit valgus of the R knee to improve posture. (01/30/22: Added HEP: sidelie hip AB/AD strengthening) 02/11/22: added fig 4 stretch, STS. STG Duration 01/30/22 (02/21/22: MET GOAL) Melting Operator Goal (LTG) Pt will be independent in a self care HEP. 01/23/22: Issue: TBand ankle strengthening and ECC ankle PF strengthening, Lev2 TB issued . 02/11/22: added supine fig 4 R> LLE stretch, seated STS 03/11/22: added band walk LTG Duration 04/11/22 (03/11/22: Progressed) Assessment Summary Assessment Pt had poor recall of previously issued HEP: therefore review of ex's needed. Pt needs much cuing and discussion to complete ex tasks; therefore takes longer for pt to perform ex's. Pt has very weak hip AB's. Physical Therapy Plan Frequency and Duration Frequency of Treatment 1x/Week Plan of Care Start Date 02/21/22 Plan of Care End Date 04/11/22 Next Visit Focus/Plan Next Note Type Treatment Note Next Visit Plan Pt choosing to attend therapy 1x/week. Continue STS and hurdles, hip AB strengthening, Add step ups w/focus on good hip/knee/ankle alignment, Add HEP hip AD for knee stab. POC: Improve hip ER R>L, gait /balance goals toward functional community gait (0. 49 m/s=1.6ft/sec)/stairs per pt personal goals. Ther Ex: review sitting hip AB, Monitor ECC ankle strengthening for ankle PF, Progressive standing Hip AB/AD strengthening ex's to minimize R knee valgus and issue HEP. Balance: single leg stance activities (SLS, Tandem stance , and turning 360 deg's around ).
--- NOTE | 2022-03-28 11:20 | PT.OTN ---
Current Diagnoses Muscle weakness (generalized) (03/28/22) Age-related osteoporosis without current pathological fracture (03/28/22) Unsteadiness on feet (03/28/22) Physical Therapy Treatment Note PT-OP-A Visit Information Start: 01/20/22 17:31 Freq: Status: Active Protocol: Document 03/28/22 10:48 SP (Rec: 03/28/22 11:28 SP [id number]) Out-Patient Physical Therapy Visit Information Visit Information Visit Type Treatment Note Visit Start Time 10:40 Visit Stop Time 11:20 Total Visit Minutes 40 Visit Number 9 Number of [employer] Visits 1 Evaluation Information Evaluation Date 01/21/22 Precautions Precautions 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 PT-OP-B Current Condition Start: 01/20/22 17:31 Freq: Status: Active Protocol: Document 01/21/22 15:14 LRN (Rec: 01/21/22 16:55 LRN [id number]) Current Condition History of Current Condition Onset Date 2 yrs ago Current Complaints Balance problem. Wasn't aware she had osteoporosis. History of Current Condition Pt states she was sent here by Anayeli Villarreal to help her not fall and her problem is balance. Pt is not sure why she is in Physical Therapy. Fell 2 yrs ago tripping over something in the yard. Has off/on R knee pain of unknown reason, heat made her pain go away. Prior Treatments and Tests None Treatment Goals Patient/Caregiver Goals PT goal is to improve balance to SLS for 10 sec. Pt agreeable to placment on HEP and LE strengthening Prior Functional Status Baseline Function- ADL's Independent Baseline Function- Mobility Independent Baseline Function- Gait Walk several blocks. Baseline Function- Other When weather gets cold bones and joints ache. Current Functional Impairments (Reported) Functional Limitations- ADL's Walks to mailbox and back. Yesterday walked 4 blocks. Functional Limitations- Mobility/Gait Walks without an assistive device. Functional Limitations- Recreation/ Does Chair Yoga. Hobbies Personal Factors Other Personal Factors That May Effect Lives by self. Therapy/Recovery PT-OP-C Subjective Start: 01/20/22 17:31 Freq: Status: Active Protocol: Document 03/28/22 10:48 SP (Rec: 03/28/22 11:28 SP [id number]) OP-PT Subjective Patient Comments Patient Comments Pt reported trying to walk with better alignment mechanics feet forward knees apart. Was able to receiprocal stepping ascend/descend HS bleacher stairs with 1 HR with less effort than in past. PT-OP-D Balance Start: 02/21/22 17:38 Freq: Status: Active Protocol: Document 02/21/22 09:49 LRN (Rec: 02/21/22 17:40 LRN [id number]) Balance Tests Tandem Tandem Standing 15 secs with L and R foot behind PT-OP-J Posture/Palpation/Skin Start: 01/20/22 17:31 Freq: Status: Active Protocol: Document 01/21/22 15:14 LRN (Rec: 01/21/22 16:55 LRN [id number]) Posture Evaluation Position Standing T-Spine Posture Flexible Scoliosis on (R) Shoulder Posture (R) Forward,(L) Elevated Scapula Posture (R) Depressed Arm Posture (L) Neutral,(R) Neutral Pelvis Posture (L) Iliac Crest Superior Weight Distribution Balanced Ankle/Foot Posture (L) Forefoot Abducted,(R) Forefoot Abducted Comments Posture Comments Dowagers Hump, Small C-curve in T/S with apex on R. When pt bends her L knee her spine straightens. Valgus of knees: 10 deg's Right, 3 deg's Left . Palpation Assessment Location Leg length Palpation Location Supine: ASIS to distal medial malleolus. Palpation Details L 96 cm R 95.5 cm PT-OP-K Range of Motion Start: 01/20/22 17:31 Freq: Status: Active Protocol: Document 01/21/22 15:14 LRN (Rec: 01/21/22 16:55 LRN [id number]) Lumbar Spine Range of Motion Lumbar Spine Active Degrees Testing Position Standing Comments AROM is WFL. PT-OP-M Strength Start: 01/20/22 17:31 Freq: Status: Active Protocol: Document 01/21/22 15:14 LRN (Rec: 01/21/22 16:55 LRN [id number]) Trunk Strength Trunk Manual Muscle Testing Comments Strength is generally 4+/5 Ankle/Foot Strength Ankle and Foot Manual Muscle Testing Right Plantarflexion (S1) 4 Good Comments 5/5 except as indicated above. Pt has loss of balance on return from Plantarflexion in standing. Left Plantarflexion (S1) 4 Good Comments 5/5 except as indicated above. Pt has loss of balance on return from Plantarflexion in standing. PT-OP-Q Treatments Start: 01/20/22 17:31 Freq: Status: Active Protocol: Document 03/28/22 10:48 SP (Rec: 03/28/22 11:28 SP [id number]) Therapeutic Exercises Sidelying Exercises Hip AB Sidelying Exercise Name Hip AB Side bilateral Resistance R TB Reps/Minutes 10x Comments Cuing for stacked hips on side Sitting Exercises sit to stands Sitting Exercise Name Sit<>Stand - HEP Resistance RTB Equipment Used 19 table, arms across chest Reps/Minutes 10x 2 Comments cued feet // and knees with toes, space between B knees asc/desc Hip AB Sitting Exercise Name AB strengthening Side bilateral Resistance RTB Equipment Used mirror for self alignment feedback Reps/Minutes x30 reps Comments pt trying to keep feet flat with knees apart Standing Exercises lateral band walk Standing Exercise Name added to HEP Resistance TB #2 loop above knees> at ankles Reps/Minutes 10 ft x4 laps Comments cued feet //, knees apart, DF foot clearance, lead heel to assist feet // Other Exercises step up/ downs Other Exercise Name repeated Side bilateral Resistance 6 step, light contact HR opp foot Reps/Minutes x10 Comments cued quad fac, knee alignment- tactile cue for knee lateral shift with toes Gait Training Gait Activity gait alignment in mirror Description f/b Device Used 0 Level of Assistance SBA<> S Surface firm Distance/Duration 20 ft multiple laps Treatment Focus knee and foot alignment, Comments cued increase YULY, Neuro Re-Education Treatment Balance Activities hurdles Details step to fwd Equipment 3 hurdles Reps/Duration 20 ft x3 laps Comments cued core/ trunk alignment, increase YULY PT-OP-T Assessment and Plan Start: 01/20/22 17:31 Freq: Status: Active Protocol: Document 03/28/22 10:48 SP (Rec: 03/28/22 11:28 SP [id number]) Physical Therapy Assessment Goals Three Impairment Decreased single leg balance and balance activities Impairment SLS: Left- 1sec, Right 4 secs . Tandem: 2 secs bilaterally. Turning 360 deg's in 4 secs bilaterally. Short Term Goal (STG) Pt will report improved confidence in stair ambulation . 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 She is cautious descend and uncertain /nervous stairs without UE support at this time to visit friend's house. STG Duration 03/07/22 progressin03/28/22 Crtts Goal (LTG) Improve SLS or tandem stance by 1-2 secs and pt on a home program to improve. 02/11/22: progressing: SLS RLE 5, 7 sec; LLE unable to lift longer than 1 sec.360 [place] 4 sec, no improvement. Tandem RLE forward 20 sec, LLE forward 30sec; 360 deg turn 4 sec. 02/20/22: SLS is 3 secs bilaterally, Tandem stance is 15 sec with L & R foot behind. 03/11/22: RLE 5 sec, LLE 3 sec LTG Duration 04/11/22 (03/11/22: Progressing) One Impairment Lacks appropriate self care HEP Impairment Valgus of knees: 10 deg's Right, 3 deg's Left. Short Term Goal (STG) HEP for hip strengthening to limit valgus of the R knee to improve posture. (01/30/22: Added HEP: sidelie hip AB/AD strengthening) 02/11/22: added fig 4 stretch, STS. STG Duration 01/30/22 (02/21/22: MET GOAL) Jail Goal (LTG) Pt will be independent in a self care HEP. 01/23/22: Issue: TBand ankle strengthening and ECC ankle PF strengthening, Lev2 TB issued . 02/11/22: added supine fig 4 R> LLE stretch, seated STS 03/11/22: added band walk 03/28/22: reviewed STS added resisted abd and mirror self corrections. LTG Duration 04/11/22 (03/28/22: Progressed) Assessment Summary Assessment Pt improves step ups with light-Min UE support on 1 HR to ascend steps RLE weaker than L. She reports discomfort medial R knee and challenged with hip abd fac alignment transition mid into full extension stand. Pt improves understanding knee alignment with gait but unable to maintain full throughout range gait phases. She states balance improving but not fully correct alignment adn strength to feel assured won't fall. She is nervous of uneven surfaces and risk of falling as has in past during gardening. Pt would benefit from continued skilled PT to progress strength, balance and functional independence over uneven surfaces. Physical Therapy Plan Frequency and Duration Frequency of Treatment 1x/Week Plan of Care Start Date 02/21/22 Plan of Care End Date 04/11/22 Therapeutic Interventions Therapeutic Interventions Balance Training,Gait Training ,Home Exercise Program,Manual Therapy,Neuromuscular Re- education,Patient/Caregiver Education,Self-Care/Home Management,Therapeutic Exercises Next Visit Focus/Plan Next Note Type Treatment Note Next Visit Plan Assess stair goal feel fully met. POC: Continue STS and hurdles, hip AB strengthening, Add step ups w/focus on good hip/knee/ankle alignment, Add HEP hip AD for knee stab. POC: Improve hip ER R>L, gait /balance goals toward functional community gait (0. 49 m/s=1.6ft/sec)/stairs per pt personal goals. Ther Ex: review sitting hip AB, Monitor ECC ankle strengthening for ankle PF, Progressive standing Hip AB/AD strengthening ex's to minimize R knee valgus and issue HEP. Balance: single leg stance activities (SLS, Tandem stance , and turning 360 deg's around ).
--- NOTE | 2022-04-04 17:14 | PT.OTN ---
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 PT-OP-B Current Condition Start: 01/20/22 17:31 Freq: Status: Active Protocol: Document 01/21/22 15:14 LRN (Rec: 01/21/22 16:55 LRN [id number]) Current Condition History of Current Condition Onset Date 2 yrs ago Current Complaints Balance problem. Wasn't aware she had osteoporosis. History of Current Condition Pt states she was sent here by Anayeli Villarreal to help her not fall and her problem is balance. Pt is not sure why she is in Physical Therapy. Fell 2 yrs ago tripping over something in the yard. Has off/on R knee pain of unknown reason, heat made her pain go away. Prior Treatments and Tests None Treatment Goals Patient/Caregiver Goals PT goal is to improve balance to SLS for 10 sec. Pt agreeable to placment on HEP and LE strengthening Prior Functional Status Baseline Function- ADL's Independent Baseline Function- Mobility Independent Baseline Function- Gait Walk several blocks. Baseline Function- Other When weather gets cold bones and joints ache. Current Functional Impairments (Reported) Functional Limitations- ADL's Walks to mailbox and back. Yesterday walked 4 blocks. Functional Limitations- Mobility/Gait Walks without an assistive device. Functional Limitations- Recreation/ Does Chair Yoga. Hobbies Personal Factors Other Personal Factors That May Effect Lives by self. Therapy/Recovery PT-OP-C Subjective Start: 01/20/22 17:31 Freq: Status: Active Protocol: Document 04/04/22 08:17 LRN (Rec: 04/04/22 09:03 LRN [id number]) OP-PT Subjective Patient Comments Patient Comments States she fell 5 days ago on carpet when tripped by cat under her feet, had back pain that evening in L sacral border. Used heat a couple days, and now using Salonpas patches, and Tylenol & Excedrin. 2 days ago felt good so did ex's (Hip stretches). After stopping ex's has felt pretty good. Bowel and bladder is good. Wakes in middle of night hurting, normally sleeps on stomach and side. Patient Questionnaires Oswestry Low Back Index Oswestry Score 30 Oswestry Impairment 20 to 39% Impaired (Score 20- 39) OP-PT Pain Assessment Pain Assessment Grid Paper Pain Assessment Grid Completed Yes Location L low back Pain Location Details L Gluteals, primarily upper gluteals and L sacral border Intensity 3 Scale Used Numeric (0 - 10) Description Aching,Tender,Tightness Variations/Patterns Pain with exercise and stretch , pain relief with rest. Pain Aggravating Factors Activity,Exercise Pain Alleviating Factors Cold,Heat,Medication, Inactivity PT-OP-D Balance Start: 02/21/22 17:38 Freq: Status: Active Protocol: Document 02/21/22 09:49 LRN (Rec: 02/21/22 17:40 LRN [id number]) Balance Tests Tandem Tandem Standing 15 secs with L and R foot behind PT-OP-J Posture/Palpation/Skin Start: 01/20/22 17:31 Freq: Status: Active Protocol: Document 01/21/22 15:14 LRN (Rec: 01/21/22 16:55 LRN [id number]) Posture Evaluation Position Standing T-Spine Posture Flexible Scoliosis on (R) Shoulder Posture (R) Forward,(L) Elevated Scapula Posture (R) Depressed Arm Posture (L) Neutral,(R) Neutral Pelvis Posture (L) Iliac Crest Superior Weight Distribution Balanced Ankle/Foot Posture (L) Forefoot Abducted,(R) Forefoot Abducted Comments Posture Comments Dowagers Hump, Small C-curve in T/S with apex on R. When pt bends her L knee her spine straightens. Valgus of knees: 10 deg's Right, 3 deg's Left . Palpation Assessment Location Leg length Palpation Location Supine: ASIS to distal medial malleolus. Palpation Details L 96 cm R 95.5 cm PT-OP-K Range of Motion Start: 01/20/22 17:31 Freq: Status: Active Protocol: Document 04/04/22 08:17 LRN (Rec: 04/04/22 09:03 LRN [id number]) Hip Goniometric Range of Motion Hip Right Passive Testing Position Supine Straight Leg Raise 105 Internal Rotation 60 External Rotation 45 Left Passive Testing Position Supine Straight Leg Raise 90 Internal Rotation 30 External Rotation 60 PT-OP-M Strength Start: 01/20/22 17:31 Freq: Status: Active Protocol: Document 01/21/22 15:14 LRN (Rec: 01/21/22 16:55 LRN [id number]) Trunk Strength Trunk Manual Muscle Testing Comments Strength is generally 4+/5 Ankle/Foot Strength Ankle and Foot Manual Muscle Testing Right Plantarflexion (S1) 4 Good Comments 5/5 except as indicated above. Pt has loss of balance on return from Plantarflexion in standing. Left Plantarflexion (S1) 4 Good Comments 5/5 except as indicated above. Pt has loss of balance on return from Plantarflexion in standing. PT-OP-Q Treatments Start: 01/20/22 17:31 Freq: Status: Active Protocol: Document 04/04/22 08:17 LRN (Rec: 04/04/22 09:03 LRN [id number]) Therapeutic Exercises Supine Exercises Hip AB Supine Exercise Name Active Hip AB Side bilateral Reps/Minutes Deferred due to pain with AB, L>R. Piriformis stretch Supine Exercise Name Piriformis stretch Side bilateral Comments PROM hip IR 30 deg's left, 60 deg's right. Hamstring stretch Supine Exercise Name SLR Side bilateral Comments 90 deg's left, 105 deg's right fig 4 stretch Supine Exercise Name Fig 4 stretch Comments Marquita Test - for SIJ involvement. Sitting Exercises 3-way ankle strengthening Sitting Exercise Name Ankle EV/IV/DF strengthening Side bilateral Resistance TB #1>TB #2 Equipment Used towel roll betwn BLEs Reps/Minutes 10 x 3 each Comments Phy assist for ex set up for EV/PF with towel roll. Self-Care/Home Management Treatment Education Other Education Discussed in detail pt's current condition and plan of care. Pt encouraged to return to referring provider for assessment of her back and referral to low back/L hip rehab to be done in place of current balance rehab. PT-OP-T Assessment and Plan Start: 01/20/22 17:31 Freq: Status: Active Protocol: Document 04/04/22 08:17 LRN (Rec: 04/04/22 09:03 LRN [id number]) Physical Therapy Assessment Rehab Potential Rehabilitation Potential Good Evaluation Complexity Number of Personal Factors/Comorbidities 1-2 Number of Body Systems Impaired 3 Clinical Presentation at Evaluation Evolving Impairments Impairments Balance,Gait,Pain,Posture,Soft Tissue Mobility,Strength Goals Four Impairment LBP (primarily left) rated 3/ 10 Short Term Goal (STG) Decrease LBP 50% STG Duration 05/04/22 Alf Goal (LTG) No LBP with transfers (rolling side to side, sup<>sit, sit<> stand) LTG Duration 06/03/22 Three Impairment Decreased single leg balance and balance activities Impairment SLS: Left- 1sec, Right 4 secs . Tandem: 2 secs bilaterally. Turning 360 deg's in 4 secs bilaterally. Short Term Goal (STG) Pt will report improved confidence in stair ambulation . 03/28/22: Progressing: pt reported increase confidence use of HR and stair mgt at local [employer] school football reciprocating steps. She is cautious descend and uncertain /nervous stairs without UE support at this time to visit friend's house. STG Duration 05/04/22 progressin [employer] Goal (LTG) Improve SLS or tandem stance by 1-2 secs and pt on a home program to improve. 02/11/22: progressing: SLS RLE 5, 7 sec; LLE unable to lift longer than 1 sec.360 [place] 4 sec, no improvement. Tandem RLE forward 20 sec, LLE forward 30sec; 360 deg turn 4 sec. 02/20/22: SLS is 3 secs bilaterally, Tandem stance is 15 sec with L & R foot behind. 03/11/22: RLE 5 sec, LLE 3 sec LTG Duration 06/03/22 (03/11/22: Progressing) One Impairment Lacks appropriate self care HEP Impairment Valgus of knees: 10 deg's Right, 3 deg's Left. Short Term Goal (STG) HEP for hip strengthening to limit valgus of the R knee to improve posture. (01/30/22: Added HEP: sidelie hip AB/AD strengthening) 02/11/22: added fig 4 stretch, STS. STG Duration 01/30/22 (02/21/22: MET GOAL) Alf Goal (LTG) Pt will be independent in a self care HEP. 01/23/22: Issue: TBand ankle strengthening and ECC ankle PF strengthening, Lev2 TB issued . 02/11/22: added supine fig 4 R> LLE stretch, seated STS 03/11/22: added band walk 03/28/22: reviewed STS added resisted abd and mirror self corrections. LTG Duration 06/03/22 (03/28/22: Progressed) Assessment Summary Assessment Pt is an 86 yo female who initially attended therapy with primary complaints of decreased balance. Pt denied awareness of her status of osteoporosis. Overall the pt has improved in her balance and stability with therapy except, her SLS has not improved enough to increase her confidence with stair ambulation. She attends today with report of a recent fall at home, resulting in onset of L low back and hip pain that is limiting her ability to perform her home exercises. The pt has agreed to return to provider for evaluation after fall. It appears the the pt has primarily soft tissue injury (very limited in L hip IR mobility) with possible L sciatic pain and L sacral rotation; therefore it is recommended the pt be referred to therapy for back rehabilitation (add to current therapy program) as well as continued strengthening and balance training for safety with gait. Referring physician will need to sign off on plan of care submitted. Physical Therapy Plan Frequency and Duration Frequency of Treatment 1x/Week Plan of Care Start Date 04/04/22 Plan of Care End Date 06/03/22 Therapeutic Interventions Therapeutic Interventions Balance Training,Gait Training ,Home Exercise Program,Manual Therapy,Neuromuscular Re- education,Patient/Caregiver Education,Self-Care/Home Management,Soft Tissue Mobilization,Therapeutic Activities,Therapeutic Exercises Next Visit Focus/Plan Next Note Type Treatment Note Next Visit Plan Assess stair ambulation. Add Sacral balancing, STM to L hip (gluteals) and L/S (L3) As tolerated, continue STS and hurdles, hip AB strengthening , Add step ups w/focus on good hip/knee/ankle alignment, Add HEP hip AD for knee stab. POC: Improve hip ER R>L, gait/ balance goals toward functional community gait (0. 49 m/s=1.6ft/sec)/stairs per pt personal goals. Ther Ex: review sitting hip AB , Monitor ECC ankle strengthening for ankle PF, Progressive standing Hip AB/AD strengthening ex's to minimize R knee valgus and issue HEP. Balance: single leg stance activities (SLS, Tandem stance , and turning 360 deg's around ).
--- NOTE | 2022-04-04 17:15 | PT.OPPOC ---
Physical, Occupational & Speech Therapy At [facility] Current Diagnoses Muscle weakness (generalized) (04/04/22) Age-related osteoporosis without current pathological fracture (04/04/22) Unsteadiness on feet (04/04/22) Visit Care Team Role Provider Type DENNY Gamboa Attending Provider Advanced Supervisor Travel Trailer Family Provider Primary Care Provider Referring Provider Specialty: Family Practice Address: [address] [place] [address], [facility] [place], [address] Email: [email or web address] Plan Of Care PT-OP-T Assessment and Plan Start: 01/20/22 17:31 Freq: Status: Active Protocol: Document 04/04/22 08:17 LRN (Rec: 04/04/22 09:03 LRN [id number]) Physical Therapy Assessment Rehab Potential Rehabilitation Potential Good Evaluation Complexity Number of Personal Factors/Comorbidities 1-2 Number of Body Systems Impaired 3 Clinical Presentation at Evaluation Evolving Impairments Impairments Balance,Gait,Pain,Posture,Soft Tissue Mobility,Strength Goals Four Impairment LBP (primarily left) rated Short Term Goal (STG) Decrease LBP 50% STG Duration 05/04/22 Fpc Goal (LTG) No LBP with transfers (rolling side to side, sup<>sit, sit<> stand) LTG Duration 06/03/22 Three Impairment Decreased single leg balance and balance activities Impairment SLS: Left- 1sec, Right 4 secs . Tandem: 2 secs bilaterally. Turning 360 deg's in 4 secs bilaterally. Short Term Goal (STG) Pt will report improved confidence in stair ambulation . 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 She is cautious descend and uncertain /nervous stairs without UE support at this time to visit friend's house. STG Duration 05/04/22 progressin Fpc Goal (LTG) Improve SLS or tandem stance by 1-2 secs and pt on a home program to improve. 02/11/22: progressing: SLS RLE 5, 7 sec; LLE unable to lift longer than 1 sec.360 [place] 4 sec, no improvement. Tandem RLE forward 20 sec, LLE forward 30sec; 360 deg turn 4 sec. 02/20/22: SLS is 3 secs bilaterally, Tandem stance is 15 sec with L & R foot behind. 03/11/22: RLE 5 sec, LLE 3 sec LTG Duration 06/03/22 (03/11/22: Progressing) One Impairment Lacks appropriate self care HEP Impairment Valgus of knees: 10 deg's Right, 3 deg's Left. Short Term Goal (STG) HEP for hip strengthening to limit valgus of the R knee to improve posture. (01/30/22: Added HEP: sidelie hip AB/AD strengthening) 02/11/22: added fig 4 stretch, STS. STG Duration 01/30/22 (02/21/22: MET GOAL) Fpc Goal (LTG) Pt will be independent in a self care HEP. 01/23/22: Issue: TBand ankle strengthening and ECC ankle PF strengthening, Lev2 TB issued . 02/11/22: added supine fig 4 R> LLE stretch, seated STS 03/11/22: added band walk 03/28/22: reviewed STS added resisted abd and mirror self corrections. LTG Duration 06/03/22 (03/28/22: Progressed) Assessment Summary Assessment Pt is an 86 yo female who initially attended therapy with primary complaints of decreased balance. Pt denied awareness of her status of osteoporosis. Overall the pt has improved in her balance and stability with therapy except, her SLS has not improved enough to increase her confidence with stair ambulation. She attends today with report of a recent fall at home, resulting in onset of L low back and hip pain that is limiting her ability to perform her home exercises. The pt has agreed to return to provider for evaluation after fall. It appears the the pt has primarily soft tissue injury (very limited in L hip IR mobility) with possible L sciatic pain and L sacral rotation; therefore it is recommended the pt be referred to therapy for back rehabilitation (add to current therapy program) as well as continued strengthening and balance training for safety with gait. Referring physician will need to sign off on plan of care submitted. Physical Therapy Plan Frequency and Duration Frequency of Treatment 1x/Week Plan of Care Start Date 04/04/22 Plan of Care End Date 06/03/22 Therapeutic Interventions Therapeutic Interventions Balance Training,Gait Training ,Home Exercise Program,Manual Therapy,Neuromuscular Re- education,Patient/Caregiver Education,Self-Care/Home Management,Soft Tissue Mobilization,Therapeutic Activities,Therapeutic Exercises Next Visit Focus/Plan Next Note Type Treatment Note Next Visit Plan Assess stair ambulation. Add Sacral balancing, STM to L hip (gluteals) and L/S (L3) As tolerated, continue STS and hurdles, hip AB strengthening , Add step ups w/focus on good hip/knee/ankle alignment, Add HEP hip AD for knee stab. POC: Improve hip ER R>L, gait/ balance goals toward functional community gait (0. 49 m/s=1.6ft/sec)/stairs per pt personal goals. Ther Ex: review sitting hip AB , Monitor ECC ankle strengthening for ankle PF, Progressive standing Hip AB/AD strengthening ex's to minimize R knee valgus and issue HEP. Balance: single leg stance activities (SLS, Tandem stance , and turning 360 deg's around ). Plan of Care Dates Plan of Care Start Date 04/04/22 Plan of Care End Date 06/03/22 Electronically Signed by: Cherry Ricardo, PT 04/04/22 5098 If you are in agreement with this Plan of Care, please return a signed and dated copy. I have reviewed this Plan of Care and certify that the skilled therapy services above are required to meet the patient?s needs. Physician Signature Date Printed Name and Credentials Clinical Instructor Signature Printed Name and Credentials
--- NOTE | 2022-04-10 15:49 | PT.OTN ---
Current Diagnoses Muscle weakness (generalized) (04/10/22) Age-related osteoporosis without current pathological fracture (04/10/22) Unsteadiness on feet (04/10/22) Physical Therapy Treatment Note PT-OP-A Visit Information Start: 01/20/22 17:31 Freq: Status: Active Protocol: Document 04/10/22 13:10 LRN (Rec: 04/10/22 15:48 LRN [id number]) Out-Patient Physical Therapy Visit Information Visit Information Visit Type Treatment Note Visit Note 1/after PN Visit Start Time 13:45 Visit Stop Time 14:33 Total Visit Minutes 48 Visit Number 11 Evaluation Information Evaluation Date 01/21/22 Precautions Precautions 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 PT-OP-B Current Condition Start: 01/20/22 17:31 Freq: Status: Active Protocol: Document 01/21/22 15:14 LRN (Rec: 01/21/22 16:55 LRN [id number]) Current Condition History of Current Condition Onset Date 2 yrs ago Current Complaints Balance problem. Wasn't aware she had osteoporosis. History of Current Condition Pt states she was sent here by Anayeli Villarreal to help her not fall and her problem is balance. Pt is not sure why she is in Physical Therapy. Fell 2 yrs ago tripping over something in the yard. Has off/on R knee pain of unknown reason, heat made her pain go away. Prior Treatments and Tests None Treatment Goals Patient/Caregiver Goals PT goal is to improve balance to SLS for 10 sec. Pt agreeable to placment on HEP and LE strengthening Prior Functional Status Baseline Function- ADL's Independent Baseline Function- Mobility Independent Baseline Function- Gait Walk several blocks. Baseline Function- Other When weather gets cold bones and joints ache. Current Functional Impairments (Reported) Functional Limitations- ADL's Walks to mailbox and back. Yesterday walked 4 blocks. Functional Limitations- Mobility/Gait Walks without an assistive device. Functional Limitations- Recreation/ Does Chair Yoga. Hobbies Personal Factors Other Personal Factors That May Effect Lives by self. Therapy/Recovery PT-OP-C Subjective Start: 01/20/22 17:31 Freq: Status: Active Protocol: Document 04/10/22 13:10 LRN (Rec: 04/10/22 15:48 LRN [id number]) OP-PT Subjective Patient Comments Patient Comments States she will see provider on Thursday. The last 3-4 days hasn't exercised because of the pain. Her L>R back is painful and she took Advil. Pain is rated 5-6/10, pain is now in the buttock. PT-OP-D Balance Start: 02/21/22 17:38 Freq: Status: Active Protocol: Document 02/21/22 09:49 LRN (Rec: 02/21/22 17:40 LRN [id number]) Balance Tests Tandem Tandem Standing 15 secs with L and R foot behind PT-OP-J Posture/Palpation/Skin Start: 01/20/22 17:31 Freq: Status: Active Protocol: Document 01/21/22 15:14 LRN (Rec: 01/21/22 16:55 LRN [id number]) Posture Evaluation Position Standing T-Spine Posture Flexible Scoliosis on (R) Shoulder Posture (R) Forward,(L) Elevated Scapula Posture (R) Depressed Arm Posture (L) Neutral,(R) Neutral Pelvis Posture (L) Iliac Crest Superior Weight Distribution Balanced Ankle/Foot Posture (L) Forefoot Abducted,(R) Forefoot Abducted Comments Posture Comments Dowagers Hump, Small C-curve in T/S with apex on R. When pt bends her L knee her spine straightens. Valgus of knees: 10 deg's Right, 3 deg's Left . Palpation Assessment Location Leg length Palpation Location Supine: ASIS to distal medial malleolus. Palpation Details L 96 cm R 95.5 cm PT-OP-K Range of Motion Start: 01/20/22 17:31 Freq: Status: Active Protocol: Document 04/04/22 08:17 LRN (Rec: 04/04/22 09:03 LRN [id number]) Hip Goniometric Range of Motion Hip Right Passive Testing Position Supine Straight Leg Raise 105 Internal Rotation 60 External Rotation 45 Left Passive Testing Position Supine Straight Leg Raise 90 Internal Rotation 30 External Rotation 60 PT-OP-M Strength Start: 01/20/22 17:31 Freq: Status: Active Protocol: Document 01/21/22 15:14 LRN (Rec: 01/21/22 16:55 LRN [id number]) Trunk Strength Trunk Manual Muscle Testing Comments Strength is generally 4+/5 Ankle/Foot Strength Ankle and Foot Manual Muscle Testing Right Plantarflexion (S1) 4 Good Comments 5/5 except as indicated above. Pt has loss of balance on return from Plantarflexion in standing. Left Plantarflexion (S1) 4 Good Comments 5/5 except as indicated above. Pt has loss of balance on return from Plantarflexion in standing. PT-OP-Q Treatments Start: 01/20/22 17:31 Freq: Status: Active Protocol: Document 04/10/22 13:10 LRN (Rec: 04/10/22 15:48 LRN [id number]) Therapeutic Exercises Sitting Exercises Hip AB Sitting Exercise Name AB strengthening - BKFO Side bilateral Resistance Lev 2 TB Equipment Used mirror for self alignment feedback Reps/Minutes x30 reps Comments pt trying to keep feet flat with knees apart ECC Ankle PF strenthening Sitting Exercise Name ECC ankle PF strengthening Side bilateral Equipment Used L2 TB long loop Reps/Minutes x20 Comments cued slow motion control 3-way ankle strengthening Sitting Exercise Name Ankle EV/IV/DF strengthening Side bilateral Resistance TB #2 Equipment Used towel roll betwn BLEs Reps/Minutes 10 x 3 each Comments Phy assist for ex set up for EV/PF with towel roll. Therapeutic Activity Therapeutic Activity Rolling in bed Name Rolling in bed Reps/Minutes 2x each Comments Phys & v cuing for keeping shoulders/hips in same plane. Sit<>Supine Name Sit<>Supine Reps/Minutes x 2 Comments Phys & v cuing for proper log roll technique to minimize back pain Sit<>stand Name Sit<>stand Reps/Minutes x1 Comments Phys & v cuing for curve in LB with transfer Self-Care/Home Management Treatment Education Patient Education Body Mechanics,Pain Management ,Posture Other Education Pt educated and discussed proper sitting and standing posture. Pt educated and discussed proper body mechanics for ADLs . Pt educated and discussed proper transfers in and out of bed, and for rolling in bed. Activities Self-Care/Home Management Activities Handouts issued & reviewed for Proper posturing (sit, stand) , body mechanics basics and body mechanics for ADLs. Reviewed use of Hot/Cold for pain managment PT-OP-T Assessment and Plan Start: 01/20/22 17:31 Freq: Status: Active Protocol: Document 04/10/22 13:10 LRN (Rec: 04/10/22 15:48 LRN [id number]) Physical Therapy Assessment Goals Four Impairment LBP (primarily left) rated 3/ 10 Short Term Goal (STG) Decrease LBP 50% 04/10/22: LBP 5/10. STG Duration 05/04/22 Worse 04/10/22 Penitentiary Goal (LTG) No LBP with transfers (rolling side to side, sup<>sit, sit<> stand) LTG Duration 06/03/22 Three Impairment Decreased single leg balance and balance activities Impairment SLS: Left- 1sec, Right 4 secs . Tandem: 2 secs bilaterally. Turning 360 deg's in 4 secs bilaterally. Short Term Goal (STG) Pt will report improved confidence in stair ambulation . 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 She is cautious descend and uncertain /nervous stairs without UE support at this time to visit friend's house. STG Duration 05/04/22 progressin Penitentiary Goal (LTG) Improve SLS or tandem stance by 1-2 secs and pt on a home program to improve. 02/11/22: progressing: SLS RLE 5, 7 sec; LLE unable to lift longer than 1 sec.360 [place] 4 sec, no improvement. Tandem RLE forward 20 sec, LLE forward 30sec; 360 deg turn 4 sec. 02/20/22: SLS is 3 secs bilaterally, Tandem stance is 15 sec with L & R foot behind. 03/11/22: RLE 5 sec, LLE 3 sec LTG Duration 06/03/22 (03/11/22: Progressing) Two Impairment Decreased ankle strength Impairment PF strength is 4/5, with LOB backwards after ECC contraction (return to standing after on toes positioning). Short Term Goal (STG) Pt will be educated in TBand ankle ex's with focus on ECC strengthening with PF. STG Duration 01/24/22 (01/23/22: MET GOAL) Therapy Site Coordinator Goal (LTG) Pt will not lose her balance with return from ankle PF. LTG Duration 02/21/22 (02/21/22: MET GOAL) One Impairment Lacks appropriate self care HEP Impairment Valgus of knees: 10 deg's Right, 3 deg's Left. Short Term Goal (STG) HEP for hip strengthening to limit valgus of the R knee to improve posture. (01/30/22: Added HEP: sidelie hip AB/AD strengthening) 02/11/22: added fig 4 stretch, STS. STG Duration 01/30/22 (02/21/22: MET GOAL) Penitentiary Goal (LTG) Pt will be independent in a self care HEP. 01/23/22: Issue: TBand ankle strengthening and ECC ankle PF strengthening, Lev2 TB issued . 02/11/22: added supine fig 4 R> LLE stretch, seated STS 03/11/22: added band walk 03/28/22: reviewed STS added resisted abd and mirror self corrections. LTG Duration 06/03/22 (03/28/22: Progressed) Assessment Summary Assessment Held stair amb due to pt LBP rated 5/10. Pt had less pain with rolling and transfer sit< >supine, but had notable pain with sit<>stand. Decrease LBP in R sidelie with support under lateral side of small of back. 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 Pt may need imaging for clearance of structural dysfunction. Physical Therapy Plan Frequency and Duration Frequency of Treatment 1x/Week Plan of Care Start Date 04/04/22 Plan of Care End Date 06/03/22 Next Visit Focus/Plan Next Note Type Treatment Note Next Visit Plan Start LBP rehab if agreeable by referring physician (Check for signed POC). Assess stair ambulation. Add Sacral balancing, STM to L hip ( gluteals) and L/S (L3) As tolerated, continue STS and hurdles, hip AB strengthening , Add step ups w/focus on good hip/knee/ankle alignment, Add HEP hip AD for knee stab. POC: Improve hip ER R>L, gait/ balance goals toward functional community gait (0. 49 m/s=1.6ft/sec)/stairs per pt personal goals. Ther Ex: review sitting hip AB , Monitor ECC ankle strengthening for ankle PF, Progressive standing Hip AB/AD strengthening ex's to minimize R knee valgus and issue HEP. Balance: single leg stance activities (SLS, Tandem stance , and turning 360 deg's around ).
--- NOTE | 2022-04-22 16:45 | PT.OTN ---
Current Diagnoses Muscle weakness (generalized) (04/22/22) Age-related osteoporosis without current pathological fracture (04/22/22) Unsteadiness on feet (04/22/22) Physical Therapy Treatment Note PT-OP-A Visit Information Start: 01/20/22 17:31 Freq: Status: Active Protocol: Document 04/22/22 15:22 LRN (Rec: 04/22/22 16:44 LRN [id number]) Out-Patient Physical Therapy Visit Information Visit Information Visit Type Treatment Note Visit Note Signed POC received. 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 PT-OP-B Current Condition Start: 01/20/22 17:31 Freq: Status: Active Protocol: Document 01/21/22 15:14 LRN (Rec: 01/21/22 16:55 LRN [id number]) Current Condition History of Current Condition Onset Date 2 yrs ago Current Complaints Balance problem. Wasn't aware she had osteoporosis. History of Current Condition Pt states she was sent here by Anayeli Villarreal to help her not fall and her problem is balance. Pt is not sure why she is in Physical Therapy. Fell 2 yrs ago tripping over something in the yard. Has off/on R knee pain of unknown reason, heat made her pain go away. Prior Treatments and Tests None Treatment Goals Patient/Caregiver Goals PT goal is to improve balance to SLS for 10 sec. Pt agreeable to placment on HEP and LE strengthening Prior Functional Status Baseline Function- ADL's Independent Baseline Function- Mobility Independent Baseline Function- Gait Walk several blocks. Baseline Function- Other When weather gets cold bones and joints ache. Current Functional Impairments (Reported) Functional Limitations- ADL's Walks to mailbox and back. Yesterday walked 4 blocks. Functional Limitations- Mobility/Gait Walks without an assistive device. Functional Limitations- Recreation/ Does Chair Yoga. Hobbies Personal Factors Other Personal Factors That May Effect Lives by self. Therapy/Recovery PT-OP-C Subjective Start: 01/20/22 17:31 Freq: Status: Active Protocol: Document 04/22/22 15:22 LRN (Rec: 04/22/22 16:44 LRN [id number]) OP-PT Subjective Patient Comments Patient Comments Has been using Advil and heat, so for the last 2-3 days feeling better. No longer hurts L buttock (SIJ) when coughs. For 2-3 days has not needed Advil. States L hip AB in sidelie creates a lot of pain in the L hip. PT-OP-D Balance Start: 02/21/22 17:38 Freq: Status: Active Protocol: Document 02/21/22 09:49 LRN (Rec: 02/21/22 17:40 LRN [id number]) Balance Tests Tandem Tandem Standing 15 secs with L and R foot behind PT-OP-J Posture/Palpation/Skin Start: 01/20/22 17:31 Freq: Status: Active Protocol: Document 01/21/22 15:14 LRN (Rec: 01/21/22 16:55 LRN [id number]) Posture Evaluation Position Standing T-Spine Posture Flexible Scoliosis on (R) Shoulder Posture (R) Forward,(L) Elevated Scapula Posture (R) Depressed Arm Posture (L) Neutral,(R) Neutral Pelvis Posture (L) Iliac Crest Superior Weight Distribution Balanced Ankle/Foot Posture (L) Forefoot Abducted,(R) Forefoot Abducted Comments Posture Comments Dowagers Hump, Small C-curve in T/S with apex on R. When pt bends her L knee her spine straightens. Valgus of knees: 10 deg's Right, 3 deg's Left . Palpation Assessment Location Leg length Palpation Location Supine: ASIS to distal medial malleolus. Palpation Details L 96 cm R 95.5 cm PT-OP-K Range of Motion Start: 01/20/22 17:31 Freq: Status: Active Protocol: Document 04/04/22 08:17 LRN (Rec: 04/04/22 09:03 LRN [id number]) Hip Goniometric Range of Motion Hip Right Passive Testing Position Supine Straight Leg Raise 105 Internal Rotation 60 External Rotation 45 Left Passive Testing Position Supine Straight Leg Raise 90 Internal Rotation 30 External Rotation 60 PT-OP-M Strength Start: 01/20/22 17:31 Freq: Status: Active Protocol: Document 01/21/22 15:14 LRN (Rec: 01/21/22 16:55 LRN [id number]) Trunk Strength Trunk Manual Muscle Testing Comments Strength is generally 4+/5 Ankle/Foot Strength Ankle and Foot Manual Muscle Testing Right Plantarflexion (S1) 4 Good Comments 5/5 except as indicated above. Pt has loss of balance on return from Plantarflexion in standing. Left Plantarflexion (S1) 4 Good Comments 5/5 except as indicated above. Pt has loss of balance on return from Plantarflexion in standing. PT-OP-Q Treatments Start: 01/20/22 17:31 Freq: Status: Active Protocol: Document 04/22/22 15:22 LRN (Rec: 04/22/22 16:44 LRN [id number]) Therapeutic Exercises Sidelying Exercises Clamshell Sidelying Exercise Name Clamshell Side bilateral Reps/Minutes 10x 3 Comments Cuing slow control Hip AB Sidelying Exercise Name Hip AB Side bilateral Reps/Minutes 10x 2 L, 15x 2 R. Comments Cuing for stacked hips on side Sitting Exercises Piriformis stretch Sitting Exercise Name Piriformis stretch Side bilateral Reps/Minutes 30 SH x 3 Comments Extra time for positioning. No hip pain, but R tighter than Fig 4 stretch Sitting Exercise Name Fig 4 type stretch: R leg up on plinth in ER Side bilateral Reps/Minutes 60 x 2 sit to stands Sitting Exercise Name sit<>stands Reps/Minutes 4x Comments Pt not able to cont due to L hip pain. Pt needing rest at end Standing Exercises Picking up objects Standing Exercise Name Body mechics training: Squatting to pick remover light object (belongings) Reps/Minutes 3' Manual Therapy Treatment Soft Tissue Mobilization QL, piriformis, glut med Body Location L QL, Piriformis, Glut Med Mobilization Type Strumming Intensity/Depth Moderate Body Position Sidelying Self-Care/Home Management Treatment Education Patient Education Home Exercise Program Activities Self-Care/Home Management Activities Reviewed pt's HEP & handouts, and discussed the one ex that the pt was not able to resume due to pain. PT-OP-T Assessment and Plan Start: 01/20/22 17:31 Freq: Status: Active Protocol: Document 04/22/22 15:22 LRN (Rec: 04/22/22 16:44 N [id number]) Physical Therapy Assessment Goals Four Impairment LBP (primarily left) rated 3/ 10 Short Term Goal (STG) Decrease LBP 50% 04/10/22: LBP 5/10. STG Duration 05/04/22 Worse 04/10/22 Senior Living Goal (LTG) No LBP with transfers (rolling side to side, sup<>sit, sit<> stand) LTG Duration 06/03/22 Three Impairment Decreased single leg balance and balance activities Impairment SLS: Left- 1sec, Right 4 secs . Tandem: 2 secs bilaterally. Turning 360 deg's in 4 secs bilaterally. Short Term Goal (STG) Pt will report improved confidence in stair ambulation . 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 She is cautious descend and uncertain /nervous stairs without UE support at this time to visit friend's house. STG Duration 05/04/22 progressin Marketing Budget Analyst Goal (LTG) Improve SLS or tandem stance by 1-2 secs and pt on a home program to improve. 02/11/22: progressing: SLS RLE 5, 7 sec; LLE unable to lift longer than 1 sec.360 [place] 4 sec, no improvement. Tandem RLE forward 20 sec, LLE forward 30sec; 360 deg turn 4 sec. 02/20/22: SLS is 3 secs bilaterally, Tandem stance is 15 sec with L & R foot behind. 03/11/22: RLE 5 sec, LLE 3 sec LTG Duration 06/03/22 (03/11/22: Progressing) One Impairment Lacks appropriate self care HEP Impairment Valgus of knees: 10 deg's Right, 3 deg's Left. Short Term Goal (STG) HEP for hip strengthening to limit valgus of the R knee to improve posture. (01/30/22: Added HEP: sidelie hip AB/AD strengthening) 02/11/22: added fig 4 stretch, STS. STG Duration 01/30/22 (02/21/22: MET GOAL) Senior Living Goal (LTG) Pt will be independent in a self care HEP. 01/23/22: Issue: TBand ankle strengthening and ECC ankle PF strengthening, Lev2 TB issued . 02/11/22: added supine fig 4 R> LLE stretch, seated STS 03/11/22: added band walk 03/28/22: reviewed STS added resisted abd and mirror self corrections. LTG Duration 06/03/22 (03/28/22: Progressed) Progress Towards Goals Progress Towards Goals Slow Progress due to Medical Issues Progress Comments Pt slowly recovering from recent fall on 03/30/22, not yet at prior baseline before fall. Assessment Summary Assessment POC received for continuation PT for decreased balance with addition of LBP rehab. Pt just recovering from onset L hip pain after falling due to cat tripping her up. Pt was limited in her ability to ex due to onset of L hip pain. She had a + response to STM although she had no areas of tenderness during massage. She had no L hip pain at end of therapy, but had onset of pain when bending over to pick remover her belongings. Review of proper body mechanics and training made the motion of picking up an object less painful. Physical Therapy Plan Frequency and Duration Frequency of Treatment 1x/Week Plan of Care Start Date 04/04/22 Plan of Care End Date 06/03/22 Next Visit Focus/Plan Next Note Type Treatment Note Next Visit Plan LBP and decreased balance rehab. Assess stair ambulation. Add Sacral balancing, STM to L hip ( gluteals) and L/S (L3) As tolerated, continue STS and hurdles, hip AB strengthening , Add step ups w/focus on good hip/knee/ankle alignment, Add HEP hip AD for knee stab. POC: Improve hip ER R>L, gait/ balance goals toward functional community gait (0. 49 m/s=1.6ft/sec)/stairs per pt personal goals. Ther Ex: review sitting hip AB , Monitor ECC ankle strengthening for ankle PF, Progressive standing Hip AB/AD strengthening ex's to minimize R knee valgus and issue HEP. Balance: single leg stance activities (SLS, Tandem stance , and turning 360 deg's around ).
--- NOTE | 2022-04-29 10:30 | PT.OTN ---
Current Diagnoses Muscle weakness (generalized) (04/29/22) Age-related osteoporosis without current pathological fracture (04/29/22) Unsteadiness on feet (04/29/22) Physical Therapy Treatment Note PT-OP-A Visit Information Start: 01/20/22 17:31 Freq: Status: Active Protocol: Document 04/29/22 09:49 TS (Rec: 04/29/22 10:53 TS [id number]) Out-Patient Physical Therapy Visit Information Visit Information Visit Type Treatment Note Visit Note SPTA Kenneth lead treatment under supervision of DOMINIQUE Hahn. Visit Start Time 09:50 Visit Stop Time 10:30 Total Visit Minutes 40 Visit Number 13 Number of ENGINE HEAD REPAIRER Visits 1 PT-OP-B Current Condition Start: 01/20/22 17:31 Freq: Status: Active Protocol: Document 01/21/22 15:14 LRN (Rec: 01/21/22 16:55 LRN [id number]) Current Condition History of Current Condition Onset Date 2 yrs ago Current Complaints Balance problem. Wasn't aware she had osteoporosis. History of Current Condition Pt states she was sent here by Anayeli Villarreal to help her not fall and her problem is balance. Pt is not sure why she is in Physical Therapy. Fell 2 yrs ago tripping over something in the yard. Has off/on R knee pain of unknown reason, heat made her pain go away. Prior Treatments and Tests None Treatment Goals Patient/Caregiver Goals PT goal is to improve balance to SLS for 10 sec. Pt agreeable to placment on HEP and LE strengthening Prior Functional Status Baseline Function- ADL's Independent Baseline Function- Mobility Independent Baseline Function- Gait Walk several blocks. Baseline Function- Other When weather gets cold bones and joints ache. Current Functional Impairments (Reported) Functional Limitations- ADL's Walks to mailbox and back. Yesterday walked 4 blocks. Functional Limitations- Mobility/Gait Walks without an assistive device. Functional Limitations- Recreation/ Does Chair Yoga. Hobbies Personal Factors Other Personal Factors That May Effect Lives by self. Therapy/Recovery PT-OP-C Subjective Start: 01/20/22 17:31 Freq: Status: Active Protocol: Document 04/29/22 09:49 TS (Rec: 04/29/22 10:53 TS [id number]) OP-PT Subjective Patient Comments Patient Comments Feels she is getting over her cat fall, not taking advil and hasn't used heat for her back in 3 days. PT-OP-D Balance Start: 02/21/22 17:38 Freq: Status: Active Protocol: Document 02/21/22 09:49 LRN (Rec: 02/21/22 17:40 LRN [id number]) Balance Tests Tandem Tandem Standing 15 secs with L and R foot behind PT-OP-J Posture/Palpation/Skin Start: 01/20/22 17:31 Freq: Status: Active Protocol: Document 01/21/22 15:14 LRN (Rec: 01/21/22 16:55 LRN [id number]) Posture Evaluation Position Standing T-Spine Posture Flexible Scoliosis on (R) Shoulder Posture (R) Forward,(L) Elevated Scapula Posture (R) Depressed Arm Posture (L) Neutral,(R) Neutral Pelvis Posture (L) Iliac Crest Superior Weight Distribution Balanced Ankle/Foot Posture (L) Forefoot Abducted,(R) Forefoot Abducted Comments Posture Comments Dowagers Hump, Small C-curve in T/S with apex on R. When pt bends her L knee her spine straightens. Valgus of knees: 10 deg's Right, 3 deg's Left . Palpation Assessment Location Leg length Palpation Location Supine: ASIS to distal medial malleolus. Palpation Details L 96 cm R 95.5 cm PT-OP-K Range of Motion Start: 01/20/22 17:31 Freq: Status: Active Protocol: Document 04/04/22 08:17 LRN (Rec: 04/04/22 09:03 LRN [id number]) Hip Goniometric Range of Motion Hip Right Passive Testing Position Supine Straight Leg Raise 105 Internal Rotation 60 External Rotation 45 Left Passive Testing Position Supine Straight Leg Raise 90 Internal Rotation 30 External Rotation 60 PT-OP-M Strength Start: 01/20/22 17:31 Freq: Status: Active Protocol: Document 01/21/22 15:14 LRN (Rec: 01/21/22 16:55 LRN [id number]) Trunk Strength Trunk Manual Muscle Testing Comments Strength is generally 4+/5 Ankle/Foot Strength Ankle and Foot Manual Muscle Testing Right Plantarflexion (S1) 4 Good Comments 5/5 except as indicated above. Pt has loss of balance on return from Plantarflexion in standing. Left Plantarflexion (S1) 4 Good Comments 5/5 except as indicated above. Pt has loss of balance on return from Plantarflexion in standing. PT-OP-Q Treatments Start: 01/20/22 17:31 Freq: Status: Active Protocol: Document 04/29/22 09:49 TS (Rec: 04/29/22 10:53 TS [id number]) Therapeutic Exercises Supine Exercises Bridge Equipment Used Mat table Reps/Minutes 2x10 5 sec hold Comments Cues for TA and glute act, cramping in L&R hs Hamstring stretch Supine Exercise Name SLR Side bilateral Equipment Used Strap Reps/Minutes 2x30 Comments Feels relief from cramp Sidelying Exercises Clamshell Sidelying Exercise Name Clamshell Side bilateral Reps/Minutes 1x20EA Comments Cueing slow control, decrease hip ER Sitting Exercises Ball Squeeze Reps/Minutes 2x10 5 sec hold Comments Cues for feet flat and posture . sit to stands Sitting Exercise Name Arms crossed Reps/Minutes x10 Comments Cues for hip hinge, weight fwd , slow eccentric control Standing Exercises Hurdles Standing Exercise Name Lateral, FWD Side bilateral Reps/Minutes Lateral:2x10, FWD: 2x10 Comments x1 LOB during lateral step, recovered with no assist. lateral band walk Resistance TB #1 at ankles Reps/Minutes 10 ft x4 laps Comments Cues for slower eccentric control of TB, don't collapse in feet. PT-OP-T Assessment and Plan Start: 01/20/22 17:31 Freq: Status: Active Protocol: Document 04/29/22 09:49 TS (Rec: 04/29/22 10:53 TS [id number]) Physical Therapy Assessment Goals Four Impairment LBP (primarily left) rated 3/ 10 Short Term Goal (STG) Decrease LBP 50% 04/10/22: LBP 5/10. STG Duration 05/04/22 Worse 04/10/22 Correction Goal (LTG) No LBP with transfers (rolling side to side, sup<>sit, sit<> stand) LTG Duration 06/03/22 Three Impairment Decreased single leg balance and balance activities Impairment SLS: Left- 1sec, Right 4 secs . Tandem: 2 secs bilaterally. Turning 360 deg's in 4 secs bilaterally. Short Term Goal (STG) Pt will report improved confidence in stair ambulation . 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 She is cautious descend and uncertain /nervous stairs without UE support at this time to visit friend's house. STG Duration 05/04/22 progressin Ac/Dc Rewinder Goal (LTG) Improve SLS or tandem stance by 1-2 secs and pt on a home program to improve. 02/11/22: progressing: SLS RLE 5, 7 sec; LLE unable to lift longer than 1 sec.360 [place] 4 sec, no improvement. Tandem RLE forward 20 sec, LLE forward 30sec; 360 deg turn 4 sec. 02/20/22: SLS is 3 secs bilaterally, Tandem stance is 15 sec with L & R foot behind. 03/11/22: RLE 5 sec, LLE 3 sec LTG Duration 06/03/22 (03/11/22: Progressing) One Impairment Lacks appropriate self care HEP Impairment Valgus of knees: 10 deg's Right, 3 deg's Left. Short Term Goal (STG) HEP for hip strengthening to limit valgus of the R knee to improve posture. (01/30/22: Added HEP: sidelie hip AB/AD strengthening) 02/11/22: added fig 4 stretch, STS. STG Duration 01/30/22 (02/21/22: MET GOAL) Ac/Dc Rewinder Goal (LTG) Pt will be independent in a self care HEP. 01/23/22: Issue: TBand ankle strengthening and ECC ankle PF strengthening, Lev2 TB issued . 02/11/22: added supine fig 4 R> LLE stretch, seated STS 03/11/22: added band walk 03/28/22: reviewed STS added resisted abd and mirror self corrections. LTG Duration 06/03/22 (03/28/22: Progressed) Assessment Summary Assessment Pt demonstrates LOBx1 during lateral walks over hurdles, recovered with no assist from handrail or therapist. Pt cramping during bridge ex, HS stretch relieved cramping. Pt reports feeling like she is 95 % recovered from her fall and had no discomfort in her Lhip/ back during treatment today. Pt will benefit from continued intervention to improve strength in LEs and balance. Physical Therapy Plan Frequency and Duration Frequency of Treatment 1x/Week Plan of Care Start Date 04/04/22 Plan of Care End Date 06/03/22 Therapeutic Interventions Therapeutic Interventions Balance Training,Gait Training ,Home Exercise Program,Manual Therapy,Neuromuscular Re- education,Patient/Caregiver Education,Self-Care/Home Management,Soft Tissue Mobilization,Therapeutic Activities,Therapeutic Exercises Next Visit Focus/Plan Next Note Type Treatment Note Next Visit Plan Assess carryover of sit to stand sequencing, pt reported not doing them in a while due to her L hip/back pain. Continue to progress LE strength and challenge balance with hurdles, uneven surface, shuttle balance. LBP and decreased balance rehab. Assess stair ambulation. Add Sacral balancing, STM to L hip ( gluteals) and L/S (L3) As tolerated, continue STS and hurdles, hip AB strengthening , Add step ups w/focus on good hip/knee/ankle alignment, Add HEP hip AD for knee stab. POC: Improve hip ER R>L, gait/ balance goals toward functional community gait (0. 49 m/s=1.6ft/sec)/stairs per pt personal goals. Ther Ex: review sitting hip AB , Monitor ECC ankle strengthening for ankle PF, Progressive standing Hip AB/AD strengthening ex's to minimize R knee valgus and issue HEP. Balance: single leg stance activities (SLS, Tandem stance , and turning 360 deg's around )
--- NOTE | 2022-05-05 15:11 | PT.OTN ---
Current Diagnoses Muscle weakness (generalized) (05/05/22) Age-related osteoporosis without current pathological fracture (05/05/22) Unsteadiness on feet (05/05/22) Physical Therapy Treatment Note PT-OP-A Visit Information Start: 01/20/22 17:31 Freq: Status: Active Protocol: Document 05/05/22 10:33 LRN (Rec: 05/05/22 11:17 LRN [id number]) Out-Patient Physical Therapy Visit Information Visit Information Visit Type Treatment Note Visit Start Time 10:33 Visit Stop Time 11:13 Total Visit Minutes 40 Visit Number 14 PT-OP-B Current Condition Start: 01/20/22 17:31 Freq: Status: Active Protocol: Document 01/21/22 15:14 LRN (Rec: 01/21/22 16:55 LRN [id number]) Current Condition History of Current Condition Onset Date 2 yrs ago Current Complaints Balance problem. Wasn't aware she had osteoporosis. History of Current Condition Pt states she was sent here by Anayeli Villarreal to help her not fall and her problem is balance. Pt is not sure why she is in Physical Therapy. Fell 2 yrs ago tripping over something in the yard. Has off/on R knee pain of unknown reason, heat made her pain go away. Prior Treatments and Tests None Treatment Goals Patient/Caregiver Goals PT goal is to improve balance to SLS for 10 sec. Pt agreeable to placment on HEP and LE strengthening Prior Functional Status Baseline Function- ADL's Independent Baseline Function- Mobility Independent Baseline Function- Gait Walk several blocks. Baseline Function- Other When weather gets cold bones and joints ache. Current Functional Impairments (Reported) Functional Limitations- ADL's Walks to mailbox and back. Yesterday walked 4 blocks. Functional Limitations- Mobility/Gait Walks without an assistive device. Functional Limitations- Recreation/ Does Chair Yoga. Hobbies Personal Factors Other Personal Factors That May Effect Lives by self. Therapy/Recovery PT-OP-C Subjective Start: 01/20/22 17:31 Freq: Status: Active Protocol: Document 05/05/22 10:33 LRN (Rec: 05/05/22 11:17 LRN [id number]) OP-PT Subjective Patient Comments Patient Comments States everything aches, may be the weather change; therefore last couple days haven't done anything and feels really good, R knee has felt good. R knee pain with some ex's (clicking present) that has been present for last couple of years. After last session was sore for a couple of days not too bad and did her own routine and felt sore in R knee for couple of days, not bad. PT-OP-D Balance Start: 02/21/22 17:38 Freq: Status: Active Protocol: Document 02/21/22 09:49 LRN (Rec: 02/21/22 17:40 LRN [id number]) Balance Tests Tandem Tandem Standing 15 secs with L and R foot behind PT-OP-J Posture/Palpation/Skin Start: 01/20/22 17:31 Freq: Status: Active Protocol: Document 01/21/22 15:14 LRN (Rec: 01/21/22 16:55 LRN [id number]) Posture Evaluation Position Standing T-Spine Posture Flexible Scoliosis on (R) Shoulder Posture (R) Forward,(L) Elevated Scapula Posture (R) Depressed Arm Posture (L) Neutral,(R) Neutral Pelvis Posture (L) Iliac Crest Superior Weight Distribution Balanced Ankle/Foot Posture (L) Forefoot Abducted,(R) Forefoot Abducted Comments Posture Comments Dowagers Hump, Small C-curve in T/S with apex on R. When pt bends her L knee her spine straightens. Valgus of knees: 10 deg's Right, 3 deg's Left . Palpation Assessment Location Leg length Palpation Location Supine: ASIS to distal medial malleolus. Palpation Details L 96 cm R 95.5 cm PT-OP-K Range of Motion Start: 01/20/22 17:31 Freq: Status: Active Protocol: Document 04/04/22 08:17 LRN (Rec: 04/04/22 09:03 LRN [id number]) Hip Goniometric Range of Motion Hip Right Passive Testing Position Supine Straight Leg Raise 105 Internal Rotation 60 External Rotation 45 Left Passive Testing Position Supine Straight Leg Raise 90 Internal Rotation 30 External Rotation 60 PT-OP-M Strength Start: 01/20/22 17:31 Freq: Status: Active Protocol: Document 01/21/22 15:14 LRN (Rec: 01/21/22 16:55 LRN [id number]) Trunk Strength Trunk Manual Muscle Testing Comments Strength is generally 4+/5 Ankle/Foot Strength Ankle and Foot Manual Muscle Testing Right Plantarflexion (S1) 4 Good Comments 5/5 except as indicated above. Pt has loss of balance on return from Plantarflexion in standing. Left Plantarflexion (S1) 4 Good Comments 5/5 except as indicated above. Pt has loss of balance on return from Plantarflexion in standing. PT-OP-Q Treatments Start: 01/20/22 17:31 Freq: Status: Active Protocol: Document 05/05/22 10:33 LRN (Rec: 05/05/22 11:17 LRN [id number]) Therapeutic Exercises Supine Exercises Bridge Supine Exercise Name Bridge Reps/Minutes 10x Comments Cues for TA/Glut act Piriformis stretch Supine Exercise Name Piriformis stretch Side left Reps/Minutes 2' Comments PROM hip IR 30 deg's left, 60 deg's right. fig 4 stretch Supine Exercise Name Fig 4 stretch, f/b active stretch on R, R>L Equipment Used Pillow under R thigh for stretch Reps/Minutes 5' Comments Extra time for determining max qiana stretch on R side Sidelying Exercises Clamshell Sidelying Exercise Name Clamshell Side bilateral Reps/Minutes 20x R, 10x L Comments Much cueing R side for core stab & slow control drop Sitting Exercises Piriformis stretch Sitting Exercise Name Piriformis stretch, R>L Side left Reps/Minutes 30 SH x 1 Comments Extra time for positioning. No hip pain sit to stands Sitting Exercise Name Arms crossed Equipment Used Min A after 4x Reps/Minutes x10 Comments Cues for hip hinge, weight fwd , slow eccentric control Standing Exercises lateral band walk Standing Exercise Name Glut med strengthening PT-OP-T Assessment and Plan Start: 01/20/22 17:31 Freq: Status: Active Protocol: Document 05/05/22 10:33 LRN (Rec: 05/05/22 11:17 LRN [id number]) Physical Therapy Assessment Goals Four Impairment LBP (primarily left) rated 3/ 10 Short Term Goal (STG) Decrease LBP 50% 04/10/22: LBP 5/10. STG Duration 05/04/22 Worse 04/10/22 Plaster Mixer Goal (LTG) No LBP with transfers (rolling side to side, sup<>sit, sit<> stand) LTG Duration 06/03/22 Three Impairment Decreased single leg balance and balance activities Impairment SLS: Left- 1sec, Right 4 secs . Tandem: 2 secs bilaterally. Turning 360 deg's in 4 secs bilaterally. Short Term Goal (STG) Pt will report improved confidence in stair ambulation . 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 She is cautious descend and uncertain /nervous stairs without UE support at this time to visit friend's house. STG Duration 05/04/22 progressin [facility]sp Goal (LTG) Improve SLS or tandem stance by 1-2 secs and pt on a home program to improve. 02/11/22: progressing: SLS RLE 5, 7 sec; LLE unable to lift longer than 1 sec.360 [place] 4 sec, no improvement. Tandem RLE forward 20 sec, LLE forward 30sec; 360 deg turn 4 sec. 02/20/22: SLS is 3 secs bilaterally, Tandem stance is 15 sec with L & R foot behind. 03/11/22: RLE 5 sec, LLE 3 sec LTG Duration 06/03/22 (03/11/22: Progressing) One Impairment Lacks appropriate self care HEP Impairment Valgus of knees: 10 deg's Right, 3 deg's Left. Short Term Goal (STG) HEP for hip strengthening to limit valgus of the R knee to improve posture. (01/30/22: Added HEP: sidelie hip AB/AD strengthening) 02/11/22: added fig 4 stretch, STS. STG Duration 01/30/22 (02/21/22: MET GOAL) Usp Goal (LTG) Pt will be independent in a self care HEP. 01/23/22: Issue: TBand ankle strengthening and ECC ankle PF strengthening, Lev2 TB issued . 02/11/22: added supine fig 4 R> LLE stretch, seated STS 03/11/22: added band walk 03/28/22: reviewed STS added resisted abd and mirror self corrections. LTG Duration 06/03/22 (03/28/22: Progressed) Assessment Summary Assessment Sit to stands are difficult due to weak quads, but good recall of bending forward on sitting, although pt plops probably due to weak quads. Mild onset of soreness in LB after 4x. Pt Piriformis stretch in supine is restricted on L, but in sitting is restricted on R side, possibly due to positioning. Pt needed much cuing and correction;therefore was not able to start standing hip strengthening today. Physical Therapy Plan Frequency and Duration Frequency of Treatment 1x/Week Plan of Care Start Date 04/04/22 Plan of Care End Date 06/03/22 Next Visit Focus/Plan Next Note Type Treatment Note Next Visit Plan Assess & retrain pt in positioning of Clamshell in sidelie with hip flexed at ~70 deg's vs 90 deg's if needed. Add standing hip strengthening and HEP. Continue to progress LE strength (Glut Med) and challenge balance with hurdles , uneven surface, shuttle balance. LBP and decreased balance rehab. Assess stair ambulation. Add Sacral balancing, STM to L hip ( gluteals) and L/S (L3) if needed. Add step ups w/focus on good hip/knee/ankle alignment, Add HEP hip AD for knee stab. POC: Improve hip ER R>L, gait/ balance goals toward functional community gait (0. 49 m/s=1.6ft/sec)/stairs per pt personal goals. Ther Ex: review sitting hip AB , Monitor ECC ankle strengthening for ankle PF, Progressive standing Hip AB/AD strengthening ex's to minimize R knee valgus and issue HEP. Balance: single leg stance activities (SLS, Tandem stance , and turning 360 deg's around )
--- NOTE | 2022-05-12 10:57 | PT.OTN ---
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 PT-OP-B Current Condition Start: 01/20/22 17:31 Freq: Status: Active Protocol: Document 01/21/22 15:14 LRN (Rec: 01/21/22 16:55 LRN [id number]) Current Condition History of Current Condition Onset Date 2 yrs ago Current Complaints Balance problem. Wasn't aware she had osteoporosis. History of Current Condition Pt states she was sent here by Anayeli Villarreal to help her not fall and her problem is balance. Pt is not sure why she is in Physical Therapy. Fell 2 yrs ago tripping over something in the yard. Has off/on R knee pain of unknown reason, heat made her pain go away. Prior Treatments and Tests None Treatment Goals Patient/Caregiver Goals PT goal is to improve balance to SLS for 10 sec. Pt agreeable to placment on HEP and LE strengthening Prior Functional Status Baseline Function- ADL's Independent Baseline Function- Mobility Independent Baseline Function- Gait Walk several blocks. Baseline Function- Other When weather gets cold bones and joints ache. Current Functional Impairments (Reported) Functional Limitations- ADL's Walks to mailbox and back. Yesterday walked 4 blocks. Functional Limitations- Mobility/Gait Walks without an assistive device. Functional Limitations- Recreation/ Does Chair Yoga. Hobbies Personal Factors Other Personal Factors That May Effect Lives by self. Therapy/Recovery PT-OP-C Subjective Start: 01/20/22 17:31 Freq: Status: Active Protocol: Document 05/12/22 09:49 LRN (Rec: 05/12/22 10:54 LRN [id number]) OP-PT Subjective Patient Comments Patient Comments Exercised every day, did yardwork for 2 days last week (Thu, ). Today no leg pain. States the R leg is better, because it hasn't been as painful. No pain with Piriformis stretch in sitting. Low back pain is a little, rated 3/10. States cat fall pain is gone, still has R LB and hip pain. PT-OP-D Balance Start: 02/21/22 17:38 Freq: Status: Active Protocol: Document 02/21/22 09:49 LRN (Rec: 02/21/22 17:40 LRN [id number]) Balance Tests Tandem Tandem Standing 15 secs with L and R foot behind PT-OP-J Posture/Palpation/Skin Start: 01/20/22 17:31 Freq: Status: Active Protocol: Document 01/21/22 15:14 LRN (Rec: 01/21/22 16:55 LRN [id number]) Posture Evaluation Position Standing T-Spine Posture Flexible Scoliosis on (R) Shoulder Posture (R) Forward,(L) Elevated Scapula Posture (R) Depressed Arm Posture (L) Neutral,(R) Neutral Pelvis Posture (L) Iliac Crest Superior Weight Distribution Balanced Ankle/Foot Posture (L) Forefoot Abducted,(R) Forefoot Abducted Comments Posture Comments Dowagers Hump, Small C-curve in T/S with apex on R. When pt bends her L knee her spine straightens. Valgus of knees: 10 deg's Right, 3 deg's Left . Palpation Assessment Location Leg length Palpation Location Supine: ASIS to distal medial malleolus. Palpation Details L 96 cm R 95.5 cm PT-OP-K Range of Motion Start: 01/20/22 17:31 Freq: Status: Active Protocol: Document 04/04/22 08:17 LRN (Rec: 04/04/22 09:03 LRN [id number]) Hip Goniometric Range of Motion Hip Right Passive Testing Position Supine Straight Leg Raise 105 Internal Rotation 60 External Rotation 45 Left Passive Testing Position Supine Straight Leg Raise 90 Internal Rotation 30 External Rotation 60 PT-OP-M Strength Start: 01/20/22 17:31 Freq: Status: Active Protocol: Document 01/21/22 15:14 LRN (Rec: 01/21/22 16:55 LRN [id number]) Trunk Strength Trunk Manual Muscle Testing Comments Strength is generally 4+/5 Ankle/Foot Strength Ankle and Foot Manual Muscle Testing Right Plantarflexion (S1) 4 Good Comments 5/5 except as indicated above. Pt has loss of balance on return from Plantarflexion in standing. Left Plantarflexion (S1) 4 Good Comments 5/5 except as indicated above. Pt has loss of balance on return from Plantarflexion in standing. PT-OP-Q Treatments Start: 01/20/22 17:31 Freq: Status: Active Protocol: Document 05/12/22 09:49 LRN (Rec: 05/12/22 10:54 LRN [id number]) Therapeutic Exercises Supine Exercises Bridge Supine Exercise Name Bridge Side bilateral Reps/Minutes 30x Comments Ms Cramp in lower legs after 3 & 15reps Piriformis stretch Supine Exercise Name Piriformis stretch Side left Reps/Minutes 3' Comments PROM hip IR 30 deg's left, 60 deg's right. fig 4 stretch Supine Exercise Name Fig 4 stretch, f/b active stretch on R, R>L Equipment Used Pillow under R thigh for stretch Reps/Minutes 5' Comments Extra time for determining max qiana stretch on R side Sidelying Exercises Clamshell Sidelying Exercise Name Clamshell Side bilateral Reps/Minutes 30x R, 15x 2 L Comments Much cueing R side for core stab & slow control drop Hip AD Sidelying Exercise Name Hip AD Side bilateral Reps/Minutes 15x each Comments Cuing LE in line with trunk Hip AB Sidelying Exercise Name Active Hip AB, L>R. Side bilateral Reps/Minutes 15x 2 Comments Cuing for toes to point fwd, anesthesiologist physician training of toes pointed downward Sitting Exercises Piriformis stretch Sitting Exercise Name Piriformis stretch, R>L Side left Reps/Minutes 60 SH x 1 Comments Extra time for positioning. No hip pain Fig 4 stretch Sitting Exercise Name Fig 4 type stretch: R leg up on plinth in ER Side right sit to stands Sitting Exercise Name Arms crossed Equipment Used Min A after 4x Reps/Minutes x11 Comments Cues for hip hinge, weight fwd , slow eccentric control Neuro Re-Education Treatment Balance Activities hurdles Details step fwd: UE: 2 support 1 support (each), no support Equipment 6 hurdles Reps/Duration 20 ft x6 laps Comments cued core/ trunk alignment, increase YULY PT-OP-T Assessment and Plan Start: 01/20/22 17:31 Freq: Status: Active Protocol: Document 05/12/22 09:49 LRN (Rec: 05/12/22 10:54 LRN [id number]) Physical Therapy Assessment Goals Four Impairment LBP (primarily left) rated 3/ 10 Short Term Goal (STG) Decrease LBP 50% 04/10/22: LBP 5/10. 05/12/22: LBP 05/12/22: LBP 3/10. STG Duration 05/04/22 Worse 04/10/22 Penitentiary Goal (LTG) No LBP with transfers (rolling side to side, sup<>sit, sit<> stand). 05/12/22: Pain rated 3/10. LTG Duration 06/03/22 progressing . Three Impairment Decreased single leg balance and balance activities Impairment SLS: Left- 1sec, Right 4 secs . Tandem: 2 secs bilaterally. Turning 360 deg's in 4 secs bilaterally. Short Term Goal (STG) Pt will report improved confidence in stair ambulation . 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 She is cautious descend and uncertain /nervous stairs without UE support at this time to visit friend's house. STG Duration 05/04/22 progressin Poultry Inseminator Goal (LTG) Improve SLS or tandem stance by 1-2 secs and pt on a home program to improve. 02/11/22: progressing: SLS RLE 5, 7 sec; LLE unable to lift longer than 1 sec.360 [place] 4 sec, no improvement. Tandem RLE forward 20 sec, LLE forward 30sec; 360 deg turn 4 sec. 02/20/22: SLS is 3 secs bilaterally, Tandem stance is 15 sec with L & R foot behind. 03/11/22: RLE 5 sec, LLE 3 sec LTG Duration 06/03/22 (03/11/22: Progressing) Two Impairment Decreased ankle strength Impairment PF strength is 4/5, with LOB backwards after ECC contraction (return to standing after on toes positioning). Short Term Goal (STG) Pt will be educated in TBand ankle ex's with focus on ECC strengthening with PF. STG Duration 01/24/22 (01/23/22: MET GOAL) Penitentiary Goal (LTG) Pt will not lose her balance with return from ankle PF. LTG Duration 02/21/22 (02/21/22: MET GOAL) One Impairment Lacks appropriate self care HEP Impairment Valgus of knees: 10 deg's Right, 3 deg's Left. Short Term Goal (STG) HEP for hip strengthening to limit valgus of the R knee to improve posture. (01/30/22: Added HEP: sidelie hip AB/AD strengthening) 02/11/22: added fig 4 stretch, STS. STG Duration 01/30/22 (02/21/22: MET GOAL) [facility]iary Goal (LTG) Pt will be independent in a self care HEP. 01/23/22: Issue: TBand ankle strengthening and ECC ankle PF strengthening, Lev2 TB issued . 02/11/22: added supine fig 4 R> LLE stretch, seated STS 03/11/22: added band walk 03/28/22: reviewed STS added resisted abd and mirror self corrections. LTG Duration 06/03/22 (03/28/22: Progressed) Assessment Summary Assessment Decreased core stability with R clamshell ex, L side is stable, and good LE positioning during clamshell ex. Pt L LB/Hip pain is better (3/10), R hip/LBP is less. Physical Therapy Plan Frequency and Duration Frequency of Treatment 1x/Week Plan of Care Start Date 04/04/22 Plan of Care End Date 06/03/22 Next Visit Focus/Plan Next Note Type Treatment Note Next Visit Plan Expect DC by end of POC date. Add ex & HEP: for standing hip strengthening, hip AD for knee stab. Assess stair ambulation. Continue to progress LE strength (Glut Med ) and challenge balance with hurdles, uneven surface, shuttle balance. LBP and decreased balance rehab. Add Sacral balancing, STM to L hip (gluteals) and L/ S (L3) if needed. Add step ups w/focus on good hip/knee/ankle alignment, POC: Improve hip ER R>L, gait/ balance goals toward functional community gait (0. 49 m/s=1.6ft/sec)/stairs per pt personal goals. Ther Ex: review sitting hip AB , Monitor ECC ankle strengthening for ankle PF, Progressive standing Hip AB/AD strengthening ex's to minimize R knee valgus and issue HEP. Balance: single leg stance activities (SLS, Tandem stance , and turning 360 deg's around )
--- NOTE | 2022-05-21 09:45 | PT.OTN ---
Current Diagnoses Muscle weakness (generalized) (05/21/22) Age-related osteoporosis without current pathological fracture (05/21/22) Unsteadiness on feet (05/21/22) Physical Therapy Treatment Note PT-OP-A Visit Information Start: 01/20/22 17:31 Freq: Status: Active Protocol: Document 05/21/22 09:01 SP (Rec: 05/21/22 09:46 SP [id number]) Out-Patient Physical Therapy Visit Information Visit Information Visit Type Treatment Note Visit Start Time 09:01 Visit Stop Time 09:45 Total Visit Minutes 44 Visit Number 16 Number of PRINCIPAL CLOUD ARCHITECT Visits 1 Evaluation Information Evaluation Date 01/21/22 Precautions Precautions 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 PT-OP-B Current Condition Start: 01/20/22 17:31 Freq: Status: Active Protocol: Document 01/21/22 15:14 LRN (Rec: 01/21/22 16:55 LRN [id number]) Current Condition History of Current Condition Onset Date 2 yrs ago Current Complaints Balance problem. Wasn't aware she had osteoporosis. History of Current Condition Pt states she was sent here by Anayeli Villarreal to help her not fall and her problem is balance. Pt is not sure why she is in Physical Therapy. Fell 2 yrs ago tripping over something in the yard. Has off/on R knee pain of unknown reason, heat made her pain go away. Prior Treatments and Tests None Treatment Goals Patient/Caregiver Goals PT goal is to improve balance to SLS for 10 sec. Pt agreeable to placment on HEP and LE strengthening Prior Functional Status Baseline Function- ADL's Independent Baseline Function- Mobility Independent Baseline Function- Gait Walk several blocks. Baseline Function- Other When weather gets cold bones and joints ache. Current Functional Impairments (Reported) Functional Limitations- ADL's Walks to mailbox and back. Yesterday walked 4 blocks. Functional Limitations- Mobility/Gait Walks without an assistive device. Functional Limitations- Recreation/ Does Chair Yoga. Hobbies Personal Factors Other Personal Factors That May Effect Lives by self. Therapy/Recovery PT-OP-C Subjective Start: 01/20/22 17:31 Freq: Status: Active Protocol: Document 05/21/22 09:01 SP (Rec: 05/21/22 09:46 SP [id number]) OP-PT Subjective Patient Comments Patient Comments Pt reported no back pain, her R knee having off/on pain especially after clamshell/ reverse clamshell HEP but feel overall her exercises are helping her feel better but balance doesn't feel significant improvement in balance. PT-OP-D Balance Start: 02/21/22 17:38 Freq: Status: Active Protocol: Document 02/21/22 09:49 LRN (Rec: 02/21/22 17:40 LRN [id number]) Balance Tests Tandem Tandem Standing 15 secs with L and R foot behind PT-OP-J Posture/Palpation/Skin Start: 01/20/22 17:31 Freq: Status: Active Protocol: Document 01/21/22 15:14 LRN (Rec: 01/21/22 16:55 LRN [id number]) Posture Evaluation Position Standing T-Spine Posture Flexible Scoliosis on (R) Shoulder Posture (R) Forward,(L) Elevated Scapula Posture (R) Depressed Arm Posture (L) Neutral,(R) Neutral Pelvis Posture (L) Iliac Crest Superior Weight Distribution Balanced Ankle/Foot Posture (L) Forefoot Abducted,(R) Forefoot Abducted Comments Posture Comments Dowagers Hump, Small C-curve in T/S with apex on R. When pt bends her L knee her spine straightens. Valgus of knees: 10 deg's Right, 3 deg's Left . Palpation Assessment Location Leg length Palpation Location Supine: ASIS to distal medial malleolus. Palpation Details L 96 cm R 95.5 cm PT-OP-K Range of Motion Start: 01/20/22 17:31 Freq: Status: Active Protocol: Document 04/04/22 08:17 LRN (Rec: 04/04/22 09:03 LRN [id number]) Hip Goniometric Range of Motion Hip Right Passive Testing Position Supine Straight Leg Raise 105 Internal Rotation 60 External Rotation 45 Left Passive Testing Position Supine Straight Leg Raise 90 Internal Rotation 30 External Rotation 60 PT-OP-M Strength Start: 01/20/22 17:31 Freq: Status: Active Protocol: Document 01/21/22 15:14 LRN (Rec: 01/21/22 16:55 LRN [id number]) Trunk Strength Trunk Manual Muscle Testing Comments Strength is generally 4+/5 Ankle/Foot Strength Ankle and Foot Manual Muscle Testing Right Plantarflexion (S1) 4 Good Comments 5/5 except as indicated above. Pt has loss of balance on return from Plantarflexion in standing. Left Plantarflexion (S1) 4 Good Comments 5/5 except as indicated above. Pt has loss of balance on return from Plantarflexion in standing. PT-OP-Q Treatments Start: 01/20/22 17:31 Freq: Status: Active Protocol: Document 05/21/22 09:01 SP (Rec: 05/21/22 09:46 SP [id number]) Therapeutic Exercises Standing Exercises Hurdles Standing Exercise Name Lateral, FWD: step to and step over step Side bilateral Resistance AROM, 4# leg wt Reps/Minutes 10 ft x3 laps each Comments 1 LOB contact self recover fwd , improved posturing/foot align w/ wts lateral band walk Standing Exercise Name Glut med strengthening Side bilateral Resistance RTB ( TB #2 loop at thighs safest for home) Equipment Used //bar support Reps/Minutes 10 ft x4 laps Comments cued upright posturing/core and glut fac, trail LE clear. LOB at ankles hip abd, ext Standing Exercise Name trialed in PT only- little L hip discomfort initailly ABD/ Glut Med Side bilateral Reps/Minutes 2x5 reps Comments cued tall posture, stationary LE glut engaged, no SB Gait Training Gait Activity dynamic gait Description head turns, foot clearance with amplitude Device Used 0 Level of Assistance SBA Surface firm Distance/Duration 170 ft (1 laps around gym) Treatment Focus foot alignment and clearance, balance recovery, Comments cued tall posturing over full //feet, core/ hip abd/ trunk alignment to allow increased stability. Occasional scissor stepping with head turns. stairs Comments ascend 3 stairs x2 sets L HR and light contact R step to most confident, B HR and step to descend due to weakness unable and doesn't feel safe receiprocal stepping down. Neuro Re-Education Treatment Balance Activities SLS Details RLE 1 sec, LLE 4 sec Equipment //bars Comments decreased SLS tolerance. cued tall posture/core and glut fac PT-OP-T Assessment and Plan Start: 01/20/22 17:31 Freq: Status: Active Protocol: Document 05/21/22 09:01 SP (Rec: 05/21/22 09:46 SP [id number]) Physical Therapy Assessment Goals Four Impairment LBP (primarily left) rated 3/ 10 Short Term Goal (STG) Decrease LBP 50% 04/10/22: LBP 5/10. 05/12/22: LBP 05/12/22: LBP 3/10. 05/21/22: GOAL MET: LBP 0/10 at all. STG Duration 05/04/22 GOAL MET 05/21/22 Supervisor Accounting Clerks Goal (LTG) No LBP with transfers (rolling side to side, sup<>sit, sit<> stand). 05/12/22: Pain rated 3/10. 05/21/22: GOAL MET No pain in low back LTG Duration 06/03/22 GOAL MET 05/21/22. Three Impairment Decreased single leg balance and balance activities Impairment SLS: Left- 1sec, Right 4 secs . Tandem: 2 secs bilaterally. Turning 360 deg's in 4 secs bilaterally. Short Term Goal (STG) Pt will report improved confidence in stair ambulation . 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 She is cautious descend and uncertain /nervous stairs without UE support at this time to visit friend's house. 05/21/22: Pt states nervous still on stair but doesn't have any to practice. Performs step to patterning 1 HR, light contact 2nd HR. STG Duration 05/04/22 Progressing 05/21/22 Supervisor [employer] Goal (LTG) Improve SLS or tandem stance by 1-2 secs and pt on a home program to improve. 02/11/22: progressing: SLS RLE 5, 7 sec; LLE unable to lift longer than 1 sec.360 standing rock 4 sec, no improvement. Tandem RLE forward 20 sec, LLE forward 30sec; 360 deg turn 4 sec. 02/20/22: SLS is 3 secs bilaterally, Tandem stance is 15 sec with L & R foot behind. 03/11/22: RLE 5 sec, LLE 3 sec 05/21/22: decreased tolerance: LLE 2-4 sec, RLE 1 sec LTG Duration 06/03/22 (05/21/22: slow progress) One Impairment Lacks appropriate self care HEP Impairment Valgus of knees: 10 deg's Right, 3 deg's Left. Short Term Goal (STG) HEP for hip strengthening to limit valgus of the R knee to improve posture. (01/30/22: Added HEP: sidelie hip AB/AD strengthening) 02/11/22: added fig 4 stretch, STS. STG Duration 01/30/22 (02/21/22: MET GOAL) Longterm Goal (LTG) Pt will be independent in a self care HEP. 01/23/22: Issue: TBand ankle strengthening and ECC ankle PF strengthening, Lev2 TB issued . 02/11/22: added supine fig 4 R> LLE stretch, seated STS 03/11/22: added band walk 03/28/22: reviewed STS added resisted abd and mirror self corrections. 05/21/22: reviewed fwd and lateral band walk provided another TB #2 loop at thighs safest. LTG Duration 06/03/22 (05/21/22: Progressed) Progress Towards Goals Progress Towards Goals Progressing Toward Goals,Slow Progress due to Activity Tolerance Progress Comments GOAL MET STG & LTG #4: no LBP with rest and mobility. Assessment Summary Assessment Pt stated her knees have been hurting with clamshell/reverse clamshell, reviewed standing hip abd lateral band walk with improvement in core/ hip facilitation, cues for feet alignment. Pt decreased SLS time on RLE during goal reassessing though improves stabiltiy during band walk and weighted jing stepping for functional strengthening with cues for tall posturing, feet // alignment clearance. Pt has 1 more appt with PT, pt still challenged with stability gait, balance activities and SLS decrease time since last assessed. Pt would benefit from continued skilled PT to progress balance and dynamic gait. Physical Therapy Plan Frequency and Duration Frequency of Treatment 1x/Week Plan of Care Start Date 04/04/22 Plan of Care End Date 06/03/22 Therapeutic Interventions Therapeutic Interventions Balance Training,Gait Training ,Home Exercise Program,Manual Therapy,Neuromuscular Re- education,Patient/Caregiver Education,Self-Care/Home Management,Soft Tissue Mobilization,Therapeutic Activities,Therapeutic Exercises Next Visit Focus/Plan Next Note Type Progress Note Next Visit Plan Expect DC by end of POC date. Recheck band walk, progress uneven surface stability. Continue to progress LE strength (Glut Med) and challenge balance with hurdles , uneven surface, shuttle balance. LBP and decreased balance rehab Add step ups w/focus on good hip/knee/ankle alignment, POC: Improve hip ER R>L, gait/ balance goals toward functional community gait (0. 49 m/s=1.6ft/sec)/stairs per pt personal goals. Ther Ex: review sitting hip AB , Monitor ECC ankle strengthening for ankle PF, Progressive standing Hip AB/AD strengthening ex's to minimize R knee valgus and issue HEP. Balance: single leg stance activities (SLS, Tandem stance , and turning 360 deg's around )
--- NOTE | 2022-05-29 17:12 | PT.OTN ---
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 PT-OP-B Current Condition Start: 01/20/22 17:31 Freq: Status: Active Protocol: Document 01/21/22 15:14 LRN (Rec: 01/21/22 16:55 LRN [id number]) Current Condition History of Current Condition Onset Date 2 yrs ago Current Complaints Balance problem. Wasn't aware she had osteoporosis. History of Current Condition Pt states she was sent here by Anayeli Villarreal to help her not fall and her problem is balance. Pt is not sure why she is in Physical Therapy. Fell 2 yrs ago tripping over something in the yard. Has off/on R knee pain of unknown reason, heat made her pain go away. Prior Treatments and Tests None Treatment Goals Patient/Caregiver Goals PT goal is to improve balance to SLS for 10 sec. Pt agreeable to placment on HEP and LE strengthening Prior Functional Status Baseline Function- ADL's Independent Baseline Function- Mobility Independent Baseline Function- Gait Walk several blocks. Baseline Function- Other When weather gets cold bones and joints ache. Current Functional Impairments (Reported) Functional Limitations- ADL's Walks to mailbox and back. Yesterday walked 4 blocks. Functional Limitations- Mobility/Gait Walks without an assistive device. Functional Limitations- Recreation/ Does Chair Yoga. Hobbies Personal Factors Other Personal Factors That May Effect Lives by self. Therapy/Recovery PT-OP-C Subjective Start: 01/20/22 17:31 Freq: Status: Active Protocol: Document 05/29/22 10:33 LRN (Rec: 05/29/22 11:22 LRN [id number]) OP-PT Subjective Patient Comments Patient Comments States she has had pain down the RLE to the heel. Hurt a lot and used a heating pad and within a couple of days it felt better. States she is ready to be discharged from physical therapy because she feels her condition is up and down. Her R leg hurts causing her to have pain getting up/ down. Today no R LE pain. She has no complaints of LBP, primarily LE, sometimes hip pain. Patient Questionnaires Lower Extremity Functional Scale LEFS Score 56 LEFS Impairment 20 to 39% Impaired (Score 48- 62) PT-OP-D Balance Start: 02/21/22 17:38 Freq: Status: Active Protocol: Document 02/21/22 09:49 LRN (Rec: 02/21/22 17:40 LRN [id number]) Balance Tests Tandem Tandem Standing 15 secs with L and R foot behind PT-OP-J Posture/Palpation/Skin Start: 01/20/22 17:31 Freq: Status: Active Protocol: Document 01/21/22 15:14 LRN (Rec: 01/21/22 16:55 LRN [id number]) Posture Evaluation Position Standing T-Spine Posture Flexible Scoliosis on (R) Shoulder Posture (R) Forward,(L) Elevated Scapula Posture (R) Depressed Arm Posture (L) Neutral,(R) Neutral Pelvis Posture (L) Iliac Crest Superior Weight Distribution Balanced Ankle/Foot Posture (L) Forefoot Abducted,(R) Forefoot Abducted Comments Posture Comments Dowagers Hump, Small C-curve in T/S with apex on R. When pt bends her L knee her spine straightens. Valgus of knees: 10 deg's Right, 3 deg's Left . Palpation Assessment Location Leg length Palpation Location Supine: ASIS to distal medial malleolus. Palpation Details L 96 cm R 95.5 cm PT-OP-K Range of Motion Start: 01/20/22 17:31 Freq: Status: Active Protocol: Document 04/04/22 08:17 LRN (Rec: 04/04/22 09:03 LRN [id number]) Hip Goniometric Range of Motion Hip Right Passive Testing Position Supine Straight Leg Raise 105 Internal Rotation 60 External Rotation 45 Left Passive Testing Position Supine Straight Leg Raise 90 Internal Rotation 30 External Rotation 60 PT-OP-M Strength Start: 01/20/22 17:31 Freq: Status: Active Protocol: Document 01/21/22 15:14 LRN (Rec: 01/21/22 16:55 LRN [id number]) Trunk Strength Trunk Manual Muscle Testing Comments Strength is generally 4+/5 Ankle/Foot Strength Ankle and Foot Manual Muscle Testing Right Plantarflexion (S1) 4 Good Comments 5/5 except as indicated above. Pt has loss of balance on return from Plantarflexion in standing. Left Plantarflexion (S1) 4 Good Comments 5/5 except as indicated above. Pt has loss of balance on return from Plantarflexion in standing. PT-OP-Q Treatments Start: 01/20/22 17:31 Freq: Status: Active Protocol: Document 05/29/22 10:33 LRN (Rec: 05/29/22 11:22 LRN [id number]) Therapeutic Exercises Supine Exercises Bridge Supine Exercise Name Bridge Side bilateral Reps/Minutes 30x Comments Ms Cramp in lower legs after 3 & 15reps Piriformis stretch Supine Exercise Name Piriformis stretch Side left Reps/Minutes 2' Comments PROM hip IR 30 deg's left, 60 deg's right. fig 4 stretch Supine Exercise Name Fig 4 stretch, f/b active stretch on R, R>L Equipment Used Pillow under R thigh for stretch Reps/Minutes 5' Comments Extra time for determining max qiana stretch on R side Sidelying Exercises Clamshell Sidelying Exercise Name Clamshell Side bilateral Reps/Minutes 15x R, 15x 2 L Comments Cueing R side for core stab & slow control drop Sitting Exercises Piriformis stretch Sitting Exercise Name Piriformis stretch, R>L Side right Reps/Minutes 60 SH x 1 Comments Extra time for positioning. No hip pain Fig 4 stretch Sitting Exercise Name Fig 4 type stretch: R leg up on plinth in ER Side right Reps/Minutes 60 x 2 sit to stands Sitting Exercise Name Arms crossed Reps/Minutes x 2 Comments Pain c/o at knee. Cues for hip hinge, weight fwd, slow eccentric control Manual Therapy Treatment Soft Tissue Mobilization Sacral Balancing Body Location Sacrum, Ischial Tuberosities, PSIS' Mobilization Type Sustained Pressure Comments Inferior glide L sacral sulcus , PA of L lateral sacral border, Sacral shear to R, PA of L Ischial Tuberosity, 4 pt sacral balancing ( approximation of PSIS/Ischiums , and opposite PSIS/Ischiums). Self-Care/Home Management Treatment Education Patient Education Home Exercise Program Activities Self-Care/Home Management Activities Reviewed HEP. Pt given I/S on restarting her sidelie ex's one at a time and limit to 10 reps to start. Standing side stepping with TB discharged due to poor understanding of correct completion of exercise . PT-OP-T Assessment and Plan Start: 01/20/22 17:31 Freq: Status: Active Protocol: Document 05/29/22 10:33 LRN (Rec: 05/29/22 11:22 LRN [id number]) Physical Therapy Assessment Goals Four Impairment LBP (primarily left) rated 3/ 10 Short Term Goal (STG) Decrease LBP 50% 04/10/22: LBP 5/10. 05/12/22: LBP 05/12/22: LBP 3/10. 05/21/22: GOAL MET: LBP 0/10 at all. STG Duration 05/04/22 GOAL MET 05/21/22 It Infrastructure Specialist Goal (LTG) No LBP with transfers (rolling side to side, sup<>sit, sit<> stand). 05/12/22: Pain rated 3/10. 05/21/22: GOAL MET No pain in low back LTG Duration 06/03/22 GOAL MET 05/21/22. Three Impairment Decreased single leg balance and balance activities Impairment SLS: Left- 1sec, Right 4 secs . Tandem: 2 secs bilaterally. Turning 360 deg's in 4 secs bilaterally. Short Term Goal (STG) Pt will report improved confidence in stair ambulation . 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 She is cautious descend and uncertain /nervous stairs without UE support at this time to visit friend's house. 05/21/22: Pt states nervous still on stair but doesn't have any to practice. Performs step to patterning 1 HR, light contact 2nd HR. 05/29/22: Nervous on stairs due to R knee pain. STG Duration 05/04/22 (05/29/22: Progressed , GOAL NOT MET) Group Home Goal (LTG) Improve SLS or tandem stance by 1-2 secs and pt on a home program to improve. 02/11/22: progressing: SLS RLE 5, 7 sec; LLE unable to lift longer than 1 sec.360 [place] 4 sec, no improvement. Tandem RLE forward 20 sec, LLE forward 30sec; 360 deg turn 4 sec. 02/20/22: SLS is 3 secs bilaterally, Tandem stance is 15 sec with L & R foot behind. 03/11/22: RLE 5 sec, LLE 3 sec 05/21/22: decreased tolerance: LLE 2-4 sec, RLE 1 sec LTG Duration 06/03/22 (05/21/22: slow progress) Two Impairment Decreased ankle strength Impairment PF strength is 4/5, with LOB backwards after ECC contraction (return to standing after on toes positioning). Short Term Goal (STG) Pt will be educated in TBand ankle ex's with focus on ECC strengthening with PF. STG Duration 01/24/22 (01/23/22: MET GOAL) It Infrastructure Specialist Goal (LTG) Pt will not lose her balance with return from ankle PF. LTG Duration 02/21/22 (02/21/22: MET GOAL) One Impairment Lacks appropriate self care HEP Impairment Valgus of knees: 10 deg's Right, 3 deg's Left. Short Term Goal (STG) HEP for hip strengthening to limit valgus of the R knee to improve posture. (01/30/22: Added HEP: sidelie hip AB/AD strengthening) 02/11/22: added fig 4 stretch, STS. STG Duration 01/30/22 (02/21/22: MET GOAL) Group Home Goal (LTG) Pt will be independent in a self care HEP. 01/23/22: Issue: TBand ankle strengthening and ECC ankle PF strengthening, Lev2 TB issued . 02/11/22: added supine fig 4 R> LLE stretch, seated STS 03/11/22: added band walk 03/28/22: reviewed STS added resisted abd and mirror self corrections. 05/21/22: reviewed fwd and lateral band walk provided another TB #2 loop at thighs safest. 05/29/22: Modified pt's HEP for her current condition. LTG Duration 06/03/22 (05/29/22: MET GOAL ) Assessment Summary Assessment Pt had R hip pain only with hip ER stretch (fig 4 sit & sup) and in the R knee with multiple repetitions of sit<> stand. Pt's goals were mostly met, except Single Leg Stance and confidence in stair ambulation due to RLE pain uncertainty. The pt has had intermittent R LE pain and resolution of her LBP since tripping over her cat (03/29/22 ). Pt has new onset of intermittent R Sciatic pain, but she feels ready for DC from physical therapy and appears to be able to manage her pain with her self care program thus far. Her LE function per LEFS indicates a 20-39% impairment (score 56). Today the pt appeared to have an increase in R back/LE pain with hip strengthening ( lateral step outs with TBand around ankles); therefore on review this exercise was discharged from her HEP. (See DC section below). The pt is being discharged from physical therapy at the pt's request. Physical Therapy Plan Discharge Physical Therapy Discharge Reasons Patient Request Discharge Comments Pt feels she can continue on her own with her HEP and feels ready for discharge from therapy. She has had intermittent R knee, heel, or back pain since reportedly falling over her cat on , which resulted in L sided back/sacral pain that eventually resolved. The pt did not seek medical care after her fall. Her symptoms may indicate possible L3-L4 or SI dysfunction that would be appropriate for further physical therapy if symptoms persist. Thank you for your referral.
== END 2022-06-03 16:25 | disposition home or self-care (01) ==
LOC: PHYS 10:30
PROVIDERS: Family Provider Internal Medicine; PCP Internal Medicine; Referring Provider Internal Medicine; Visit Provider Internal Medicine
DX: M81.0 Age-related osteoporosis without current pathological fracture (principal); M62.81 Muscle weakness (generalized); R26.81 Unsteadiness on feet
CPT/HCPCS: 97110; 97112; 97116; 97140; 97162; 97530; 97535

== ENCOUNTER → 2023-12-10 09:15 | Outpatient (CLI) | payer MEDICARE, SELFPAY ==
--- NOTE | 2023-12-10 09:16 | DI.CT.S_ITS ---
PROCEDURE: CT CHEST WO CON INDICATIONS: RIGHT LOWER LOBE PULMONARY NODULE-2YR F/U TECHNIQUE: Noncontrast 5 mm thick sections acquired from the pulmonary apices to the posterior costophrenic angles. 1 mm lung window, 5 mm thick coronal and sagittal and 7 mm axial MIP reformats were then acquired. For radiation dose reduction, the following was used: automated exposure control, adjustment of mA and/or kV according to patient size. COMPARISON: [facility], CT, CT CHEST WO CON, 12/23/2021, 14:09. FINDINGS: Image quality: Excellent Lungs: Mild peripheral reticulation, unchanged from prior exam, representing mild pulmonary fibrosis. 8 mm pulmonary nodule in the right lower lobe (3:146), unchanged from prior exam. Additional scattered sub 5 mm pulmonary nodules. No pleural effusion or pneumothorax. No pulmonary edema or focal consolidation. Soft tissue/mediastinum: Moderate calcification of the thoracic aorta. No thoracic aortic aneurysm. Heart is normal in size. No pericardial effusion. No significant coronary artery calcification. Mild aortic annular calcification. No mediastinal, hilar, or axillary lymphadenopathy. Upper abdomen unremarkable inferior bones: Mild dextroscoliosis of the thoracic spine. Multilevel, moderate degenerative disease of the thoracic spine. IMPRESSION: 1. 8 mm pulmonary nodule in the right lower lobe, unchanged from prior exam, favoring benign etiology given stability. Dictated by: Shantel Davalos M.D. on 12/10/2023 at 12:37 Approved by: Shantel Davalos M.D. on 12/10/2023 at 12:48
== END ==
LOC: CT 09:16
PROVIDERS: Family Provider Internal Medicine; PCP Internal Medicine; Referring Provider Internal Medicine; Visit Provider Internal Medicine
DX: R91.1 Solitary pulmonary nodule (principal)
CPT/HCPCS: 71250

== ENCOUNTER → 2024-08-19 11:22 | Outpatient (CLI) | payer MEDICARE, SELFPAY ==
--- NOTE | 2024-08-19 11:24 | DI.RAD.S_ITS ---
PROCEDURE: XR DEXA AXIAL SKELETON INDICATIONS: POST MENOPAUSAL COMPARISON: [facility], CR, XR DEXA AXIAL SKELETON, 12/26/2019, 14:51. FINDINGS: Lumbar Spine: Bone mineral density 0.964 (previously 0.958) g/cm2, T score -0.9 (previously -1.8). Left Femoral Neck: Bone mineral density 0.637 (previously 0.875) g/cm2, T score -1.9 (previously -1.2). Left Hip: Bone mineral density 0.724 (previously 0.899) g/cm2, T score -1.8 (previously -0.9). Fracture Risk Calculation (when applicable): 10-year fracture risk of a major osteoporotic fracture 12 percent and of a hip fracture 3.8 percent. (T score greater or equal to -1.0 to: NORMAL) (T score from -1.1 to -2.4: OSTEOPENIA) (T score less than or equal to -2.5: OSTEOPOROSIS) IMPRESSION: Osteopenia--- recommend repeat DEXA in 2-3 years for reassessment. Follow-up guidelines as follows: Osteoporosis: Consider a repeat DEXA and Vertebral Fracture Assessment (VFA) exam in 2 years or sooner if medically necessary, to reassess this patient's status. Osteopenia: Consider a repeat DEXA in 2-3 years to reassess this patient's status, or if there is a new clinical indication. Normal: Consider a repeat DEXA in 5 years or sooner, or if there is a new clinical indication. All treatment decisions require clinical judgment and consideration of individual patient factors, including patient preferences, comorbidities, previous drug use, risk factors not captured in the FRAX model (e.g., frailty, falls, vitamin D deficiency, increased bone turnover, interval significant decline in bone density ) and possible under- or over-estimation of fracture risk by FRAX. In addition, the NOF Guide recommends that FDA-approved medical therapies be considered in postmenopausal women and men age >= 50 years with a: * Hip or vertebral (clinical or morphometric) fracture * T-score of <=-2.5 at the spine or hip * Ten-year fracture probability by FRAX of >= 3% for hip fracture or >=20% for major osteoporotic fracture. Dictated by: Brian Pruitt M.D. on 08/19/2024 at 19:02 Approved by: Brian Pruitt M.D. on 08/19/2024 at 19:08
== END ==
PROVIDERS: Family Provider Internal Medicine; PCP Family Medicine; Referring Provider Family Medicine; Visit Provider Family Medicine
DX: M85.852 Other specified disorders of bone density and structure, left thigh (principal); Z78.0 Asymptomatic menopausal state
CPT/HCPCS: 77080

== ENCOUNTER → 2024-08-26 10:57 | Outpatient (CLI) | payer MEDICARE, SELFPAY ==
--- NOTE | 2024-08-26 11:05 | DI.RAD.S_ITS ---
PROCEDURE: XR SHOULDER RT 2V INDICATIONS: R SHOULDER PAIN TECHNIQUE: 2 views of the shoulder were acquired. COMPARISON: None. FINDINGS: Moderate degenerative changes right glenohumeral and to a lesser degree acromioclavicular joint with joint space narrowing and osteophytes. No radiographic evidence of displaced fracture, dislocation or high attenuation soft tissue foreign body. Incidental note is made of moderate calcifications of the aortic arch. IMPRESSION: Degenerative changes as discussed above. If symptoms persist or worsen, or there is high clinical suspicion of right shoulder abnormality, MRI could be performed. Dictated by: Rudy Butts M.D. on 08/26/2024 at 21:18 Approved by: Rudy Butts M.D. on 08/26/2024 at 21:20
== END ==
PROVIDERS: Family Provider Internal Medicine; PCP Family Medicine; Referring Provider Family Medicine; Visit Provider Family Medicine
DX: M25.511 Pain in right shoulder (principal)
CPT/HCPCS: 73030

== ENCOUNTER → 2024-09-26 09:05 | Outpatient (CLI) | payer MEDICARE, SELFPAY ==
--- NOTE | 2024-09-26 09:08 | DI.RAD.S_ITS ---
PROCEDURE: XR KNEE RT 3V INDICATIONS: KNEE PAIN TECHNIQUE: 3 views of the knee were acquired. COMPARISON: None. FINDINGS: Bones: No fractures or dislocations. No suspicious bony lesions. Moderate to severe lateral and moderate medial tibiofemoral and patellofemoral compartment narrowing with associated osteophytosis. Soft tissues: Small joint effusion. No suspicious soft tissue calcifications. IMPRESSION: KL grade 3 tricompartmental osteoarthritis without evidence of acute osseous abnormality. Small joint effusion. Dictated by: Brian Pruitt M.D. on 09/26/2024 at 23:48 Approved by: Brian Pruitt M.D. on 09/26/2024 at 23:49
--- NOTE | 2024-09-26 09:08 | DI.RAD.S_ITS ---
PROCEDURE: XR SHOULDER LT MIN 2V INDICATIONS: SHOULDER PAIN TECHNIQUE: 3 views of the shoulder were acquired. COMPARISON: [facility], CR, XR SHOULDER RT MIN 2V, 08/26/2024, 11:04. FINDINGS: Bones: No fractures or dislocations. The humeral head is moderately high-riding. There is moderate glenohumeral joint space narrowing and marginal osteophytosis as well as moderate hypertrophic acromioclavicular arthropathy. No suspicious bony lesions. Visualized ribs appear intact. Soft tissues: No suspicious soft tissue calcifications. IMPRESSION: Degenerative change of the glenohumeral and acromioclavicular joints without evidence acute bony abnormality. Dictated by: Brian Pruitt M.D. on 09/26/2024 at 23:45 Approved by: Brian Pruitt M.D. on 09/26/2024 at 23:47
== END ==
LOC: RAD 09:07
PROVIDERS: Family Provider Internal Medicine; PCP Family Medicine; Referring Provider Family Medicine; Visit Provider Family Medicine
DX: M17.11 Unilateral primary osteoarthritis, right knee (principal); M25.512 Pain in left shoulder; M25.461 Effusion, right knee; M25.561 Pain in right knee; G89.29 Other chronic pain
CPT/HCPCS: 73030; 73562

== ENCOUNTER 2024-11-24 09:45 | Outpatient (RCR) | payer MEDICARE, SELFPAY ==
--- NOTE | 2024-10-26 12:50 | PT.OIE ---
Current Diagnoses Pain in left shoulder (10/26/24) Pain in right knee (10/26/24) Low back pain, unspecified (10/26/24) Past Medical History (Last Reviewed 05/19/23 @ 07:42 by Lillie Loyola PA-C) Leg numbness Visit Care Team Role Provider Type DENNY Gamboa Family Provider Advanced Folded Cloth Taper Specialty: [facility] Practice Address: [address] [place] [address], [facility] Email: [email or web address] Nadia Song MD Attending Provider Non-Staff Primary Care Provider Referring Provider Specialty: [facility] Address: [address] [place] [address], [id number] Email: Physical Therapy Initial Evaluation PT-OP-A Visit Information Start: 10/26/24 09:10 Freq: Status: Active Protocol: Document 10/26/24 09:41 KW (Rec: 10/26/24 12:50 KW Laptop) Out-Patient Physical Therapy Visit Information Visit Information Visit Type Initial Evaluation Visit Start Time 09:45 Visit Stop Time 10:30 Visit Number 1 Evaluation Information Evaluation Date 10/26/24 PT-OP-B Current Condition Start: 10/26/24 09:10 Freq: Status: Active Protocol: Document 10/26/24 09:41 KW (Rec: 10/26/24 12:50 KW Laptop) Current Condition History of Current Condition Onset Date 2022 Current Complaints R knee pain, L shoulder pain History of Current 88 yo female, cues to PT with co R lateral knee pain Condition that impacts her mobility and balance. Her grand daughter is getting December 17 and patients daughter wanted her to come for PT to see if she could get stronger for the wedding. Also c/o L shoulder pain that has mostly resolved with the nicer weather and a course of oral steroids for arthritis. R lateral knee pain started with a cat bite back in 2022, sp I&D. No recent falls. Lives independently, drives. Patient attends chair YOGA at [facility]. No other exercise. Prior Treatments and x-rays in chart, OA R knee L shoulder Tests PT-OP-C Subjective Start: 10/26/24 09:10 Freq: Status: Active Protocol: Document 10/26/24 09:41 KW (Rec: 10/26/24 12:50 KW Laptop) Patient Questionnaires Lower Extremity Functional Scale LEFS Score 48.75 LEFS Impairment 20 to 39% Impaired (Score 48-62) OP-PT Pain Assessment Pain Assessment Grid Paper Pain Yes Assessment Grid Completed Location R knee Pain Location R lateral knee Details Intensity 3 Scale Used Numeric (0 - 10) Description Aching,Burning,Cramping,Pinching,Sharp,Spasm,Tender Frequency Frequent Pain Aggravating Position,Changing Position,ADL's,Activity,Exercise, Factors Standing,Walking,Stair Climbing,Lifting Pain Alleviating Cold,Heat,Medication Factors PT-OP-D Balance Start: 10/26/24 09:10 Freq: Status: Active Protocol: Document 10/26/24 09:41 KW (Rec: 10/26/24 12:50 KW Laptop) OP-PT Balance Assessment Standing Balance Static Standing Fair Balance Ability Dynamic Standing Poor Balance Ability Device Used chair, cane Standing Balance unable to get into tandem and hold 10 sec R/L or L/R Comments Balance Tests Romberg Romberg neg Single Limb Standing Single Limb- Right 3 Single Limb- Left 3 Tandem Tandem Standing <5 Roche Balance Assessment Evaluation Sitting to Standing Independent w/Hands Ability Unsupported Stance Safely- 2 minutes Sitting Unsupported, Safely- 2 minutes Feet on Floor Standing to Sitting Assist, Control w/Hands Ability Transfer Ability Safely, Hand Use Unsupported Stance- Supervision, 10 seconds Eyes Closed Unsupported Stance- Independent, 1 minute Eyes Open Reaching Forward Safely, 5 inches Standing Pick- Up Object From Supervision Floor Look Behind Shoulder Turns Sideways Only - Standing Turning 360 Degrees Turns slowly, but safely Unsupported Stance, Assist to Prevent Fall Alternating Feet on Stair Unsupported Tandem Balance Lost- Step/Stand Stance Unilateral Leg Unable,assist to not fall Stance Total Score Roche Total Score ( 34 out of 56 points) Roche Impairment 20 to 39% Impaired (Score 34-44) Rating Gonzalez Fall Scale Copyright Permission PT-OP-E Functional Tests Start: 10/26/24 09:10 Freq: Status: Active Protocol: Document 10/26/24 09:41 KW (Rec: 10/26/24 12:50 KW Laptop) Functional Tests Timed Up and Go (TUG) Score 15 Comments unsteady PT-OP-F Manual Assessment Start: 10/26/24 09:10 Freq: Status: Active Protocol: Document 10/26/24 09:41 KW (Rec: 10/26/24 12:50 KW Laptop) Manual Assessments Joint Mobility Assessment Joint Mobility B hip joint mobility: hypermobile Assessment R knee: pain with overpressure flexion R patella adherence, stiffness with inferior mobs PT-OP-G Mobility & Gait Start: 10/26/24 09:10 Freq: Status: Active Protocol: Document 10/26/24 09:41 KW (Rec: 10/26/24 12:50 KW Laptop) OP Mobility Evaluation Transfers Sit to Stand use of hands Bed to Chair use of hands Transfers OP Gait Assessment Gait Gait Assistance Independent Required: Distance (Feet) 500 Assistive Devices Assistive Device Straight Cane Gait Deviations General Gait Pattern Antalgic,Decreased Stride Length,Decreased Feet Clearance,Lateral Trunk Lean,Wide Based Gait Comments Gait Comments toe out gait, significant B foot pronation in flats, significant femoral anteversion R PT-OP-J Posture/Palpation/Skin Start: 10/26/24 09:10 Freq: Status: Active Protocol: Document 10/26/24 09:41 KW (Rec: 10/26/24 12:50 KW Laptop) Posture Evaluation Position Standing Evaluation View Lateral Hip Posture (R) Internally Rotated Knee Posture (R) Genu Valgus Patellar Posture (R) Superior Ankle/Foot Posture (L) Pronated,(R) Pronated Foot Arch (L) Low Arch,(R) Low Arch PT-OP-K Range of Motion Start: 10/26/24 09:10 Freq: Status: Active Protocol: Document 10/26/24 09:41 KW (Rec: 10/26/24 12:50 KW Laptop) Hip Goniometric Range of Motion Hip Right Hip ROM WFL No Testing Position Supine Flexion w/Knee 120 Flexed Straight Leg Raise 90 Internal Rotation 15 External Rotation 25 Knee Goniometric Range of Motion Knee Right Knee ROM WFL No Patient Position Supine Flexion Active ( 110 degrees) Flexion Passive ( 112 degrees) Extension Active ( 0 degrees) Comments pain with OP R flexion PT-OP-L Special Tests Start: 10/26/24 09:10 Freq: Status: Active Protocol: Document 10/26/24 09:41 KW (Rec: 10/26/24 12:50 KW Laptop) Special Tests Knee Special Tests Patellar Grind Test Test Results (+) R Comments stiffness prox fib head PT-OP-M Strength Start: 10/26/24 09:10 Freq: Status: Active Protocol: Document 10/26/24 09:41 KW (Rec: 10/26/24 12:50 KW Laptop) Hip Strength Hip Manual Muscle Testing Right Flexion (L2) 3+ Fair+ Extension (S1) 3+ Fair+ Abduction 3+ Fair+ External Rotation 4- Good- Internal Rotation 4- Good- Knee Strength Knee Manual Muscle Testing Right Flexion (S2) 4- Good- Extension (L3) 4- Good- PT-OP-Q Treatments Start: 10/26/24 09:10 Freq: Status: Active Protocol: Document 10/26/24 09:41 KW (Rec: 10/26/24 12:50 KW Laptop) Therapeutic Exercises Supine Exercises bridging Supine Exercise Name supine bridge Side bilateral Reps/Minutes 2 x 10 Comments Handout issued Sidelying Exercises clamshell Sidelying Exercise clamshell hip abd Name Side bilateral Reps/Minutes 2 x 10 Neuro Re-Education Treatment Balance Activities standing in corner Details handout issued for HEP: must be in a corner with chair in front Comments narrow YULY modified tandem Self-Care/Home Management Treatment Education Patient Education Body Mechanics,Fall Risk,Home Exercise Program,Joint Protection,Pain Management,Posture,Safety Other Education stressed importance of using SPC/trekking pole at ALL times. Educated that based on objective tests today that she is significant fall risk. Needs to be in more supportive shoes. PT-OP-T Assessment and Plan Start: 10/26/24 09:10 Freq: Status: Active Protocol: Document 10/26/24 09:41 KW (Rec: 10/26/24 12:50 KW Laptop) Physical Therapy Assessment Rehab Potential Rehabilitation Good Potential Evaluation Complexity Number of Personal 1-2 Factors/ Comorbidities Number of Body 3 Systems Impaired Clinical Stable Presentation at Evaluation Impairments Impairments Activity Tolerance,Balance,Functional Activities, Functional Mobility,Gait,Pain,Posture,ROM,Strength, Transfers Goals One Impairment lack of HEP Short Term Goal (STG patient is independent and compliance with HEP ) STG Duration 6 weeks Three Impairment impaired gait Short Term Goal (STG patient ambulates with B trekking poles or FWW for ) safety STG Duration 6 weeks Two Impairment impaired balance Short Term Goal (STG patient is able to hold modified tandem stance R/L and ) L/R for 20 sec patient is able to hold narrow YULY 20 sec STG Duration 6 weeks Assessment Summary Assessment pleasant 88 yo female with significant R hip weakness impacting R knee pain, balance and gait. She will benefit from skilled PT to address deficits in order to improve gait, balance and mobility. Barriers to treatment will likely be cognition as she struggled to stay on task, focus and recognize her deficits. I STRONGLY encouraged her to be in more supportive shoes, explaining the importance of such. I also stressed to her that she presents with significant fall risk and really needs to be using B trekking poles or a FWW for now. Her L shoulder pain has resolved, ROM is WFL, so we will set that aside for now and focus on gait, balance, LE strength as a higher priority as she heads to her G.Daughter's wedding end of November. Physical Therapy Plan Frequency and Duration Frequency of 2x/Week Treatment Duration of 8 treatment (weeks) Plan of Care Start 10/26/24 Date Plan of Care End 12/26/24 Date Therapeutic Interventions Therapeutic Balance Training,Gait Training,Home Exercise Program, Interventions Joint Mobilizations,Manual Therapy,Neuromuscular Re- education,Orthotic/Prosthetic Management,Patient/ Caregiver Education,Self-Care/Home Management,Soft Tissue Mobilization,Taping,Therapeutic Activities, Therapeutic Exercises Modalities Cold Pack/Ice Massage,Electric Stimulation,Hot Packs, Ultrasound Next Visit Focus/Plan Next Note Type Treatment Note Next Visit Plan Nu step // bars balance shuttle for LE B and single leg strengthening with max cues for alignment
--- NOTE | 2024-10-26 12:54 | PT.OPPOC ---
Physical, Occupational & Speech Therapy At [facility] Current Diagnoses Pain in left shoulder (10/26/24) Pain in right knee (10/26/24) Low back pain, unspecified (10/26/24) Visit Care Team Role Provider Type DENNY Gamboa Family Provider Advanced Care Provider Specialty: Family Practice Address: [address] [place] [address], [id number] Email: [email or web address] Nadia Song MD Attending Provider Non-Staff Primary Care Provider Referring Provider Specialty: [facility] Address: [address] [place] [address], [id number] Email: Plan Of Care PT-OP-B Current Condition Start: 10/26/24 09:10 Freq: Status: Active Protocol: Document 10/26/24 09:41 KW (Rec: 10/26/24 12:50 KW Laptop) Current Condition History of Current Condition Onset Date 2022 Current Complaints R knee pain, L shoulder pain History of Current 88 yo female, cues to PT with co R lateral knee pain Condition that impacts her mobility and balance. Her grand daughter is getting December 17 and patients daughter wanted her to come for PT to see if she could get stronger for the wedding. Also c/o L shoulder pain that has mostly resolved with the nicer weather and a course of oral steroids for arthritis. R lateral knee pain started with a cat bite back in 2022, sp I&D. No recent falls. Lives independently, drives. Patient attends chair [facility] at [facility]. No other exercise. Prior Treatments and x-rays in chart, OA R knee L shoulder Tests PT-OP-T Assessment and Plan Start: 10/26/24 09:10 Freq: Status: Active Protocol: Document 10/26/24 09:41 KW (Rec: 10/26/24 12:50 KW Laptop) Physical Therapy Assessment Rehab Potential Rehabilitation Good Potential Evaluation Complexity Number of Personal 1-2 Factors/ Comorbidities Number of Body 3 Systems Impaired Clinical Stable Presentation at Evaluation Impairments Impairments Activity Tolerance,Balance,Functional Activities, Functional Mobility,Gait,Pain,Posture,ROM,Strength, Transfers Goals One Impairment lack of HEP Short Term Goal (STG patient is independent and compliance with HEP ) STG Duration 6 weeks Three Impairment impaired gait Short Term Goal (STG patient ambulates with B trekking poles or FWW for ) safety STG Duration 6 weeks Two Impairment impaired balance Short Term Goal (STG patient is able to hold modified tandem stance R/L and ) L/R for 20 sec patient is able to hold narrow YULY 20 sec STG Duration 6 weeks Assessment Summary Assessment pleasant 88 yo female with significant R hip weakness impacting R knee pain, balance and gait. She will benefit from skilled PT to address deficits in order to improve gait, balance and mobility. Barriers to treatment will likely be cognition as she struggled to stay on task, focus and recognize her deficits. I STRONGLY encouraged her to be in more supportive shoes, explaining the importance of such. I also stressed to her that she presents with significant fall risk and really needs to be using B trekking poles or a FWW for now. Her L shoulder pain has resolved, ROM is WFL, so we will set that aside for now and focus on gait, balance, LE strength as a higher priority as she heads to her G.Daughter's wedding end of November. Physical Therapy Plan Frequency and Duration Frequency of 2x/Week Treatment Duration of 8 treatment (weeks) Plan of Care Start 10/26/24 Date Plan of Care End 12/26/24 Date Therapeutic Interventions Therapeutic Balance Training,Gait Training,Home Exercise Program, Interventions Joint Mobilizations,Manual Therapy,Neuromuscular Re- education,Orthotic/Prosthetic Management,Patient/ Caregiver Education,Self-Care/Home Management,Soft Tissue Mobilization,Taping,Therapeutic Activities, Therapeutic Exercises Modalities Cold Pack/Ice Massage,Electric Stimulation,Hot Packs, Ultrasound Next Visit Focus/Plan Next Note Type Treatment Note Next Visit Plan Nu step // bars balance shuttle for LE B and single leg strengthening with max cues for alignment Plan of Care Dates Plan of Care Start Date 10/26/24 Plan of Care End Date 12/26/24 Electronically Signed by: Lisa Golden PT 10/26/24 [id number] If you are in agreement with this Plan of Care, please return a signed and dated copy. I have reviewed this Plan of Care and certify that the skilled therapy services above are required to meet the patient?s needs. Physician Signature Date Printed Name and Credentials Clinical Instructor Signature Printed Name and Credentials
--- NOTE | 2024-10-28 10:44 | PT.OTN ---
Current Diagnoses Pain in left shoulder (10/28/24) Pain in right knee (10/28/24) Low back pain, unspecified (10/28/24) Physical Therapy Treatment Note PT-OP-A Visit Information Start: 10/26/24 09:10 Freq: Status: Active Protocol: Document 10/28/24 09:56 TECHNOLOGY RESOURCE TEACHER (Rec: 10/28/24 10:44 TECHNOLOGY RESOURCE TEACHER Laptop) Out-Patient Physical Therapy Visit Information Visit Information Visit Type Treatment Note Visit Start Time 09:50 Visit Stop Time 10:32 Visit Number 2 Number of SNAP ATTACHER Visits 0 PT-OP-B Current Condition Start: 10/26/24 09:10 Freq: Status: Active Protocol: Document 10/26/24 09:41 KW (Rec: 10/26/24 12:50 KW Laptop) Current Condition History of Current Condition Onset Date 2022 Current Complaints R knee pain, L shoulder pain History of Current 88 yo female, cues to PT with co R lateral knee pain Condition that impacts her mobility and balance. Her grand daughter is getting December 17 and patients daughter wanted her to come for PT to see if she could get stronger for the wedding. Also c/o L shoulder pain that has mostly resolved with the nicer weather and a course of oral steroids for arthritis. R lateral knee pain started with a cat bite back in 2022, sp I&D. No recent falls. Lives independently, drives. Patient attends chair [facility] at [facility]. No other exercise. Prior Treatments and x-rays in chart, OA R knee L shoulder Tests PT-OP-C Subjective Start: 10/26/24 09:10 Freq: Status: Active Protocol: Document 10/28/24 09:56 TECHNOLOGY RESOURCE TEACHER (Rec: 10/28/24 10:44 TECHNOLOGY RESOURCE TEACHER Laptop) OP-PT Subjective Patient Comments Patient Comments Pt ambs into session with 1 hiking pole but holding off of floor and reports only needs it when outside. Also reports pain throughout RLE 08/01. Reports she has been practicing HEP and found a good corner to work on corner exercises. PT-OP-D Balance Start: 10/26/24 09:10 Freq: Status: Active Protocol: Document 10/26/24 09:41 KW (Rec: 10/26/24 12:50 KW Laptop) OP-PT Balance Assessment Standing Balance Static Standing Fair Balance Ability Dynamic Standing Poor Balance Ability Device Used chair, cane Standing Balance unable to get into tandem and hold 10 sec R/L or L/R Comments Balance Tests Romberg Romberg neg Single Limb Standing Single Limb- Right 3 Single Limb- Left 3 Tandem Tandem Standing <5 Roche Balance Assessment Evaluation Sitting to Standing Independent w/Hands Ability Unsupported Stance Safely- 2 minutes Sitting Unsupported, Safely- 2 minutes Feet on Floor Standing to Sitting Assist, Control w/Hands Ability Transfer Ability Safely, Hand Use Unsupported Stance- Supervision, 10 seconds Eyes Closed Unsupported Stance- Independent, 1 minute Eyes Open Reaching Forward Safely, 5 inches Standing Pick- Up Object From Supervision Floor Look Behind Shoulder Turns Sideways Only - Standing Turning 360 Degrees Turns slowly, but safely Unsupported Stance, Assist to Prevent Fall Alternating Feet on Stair Unsupported Tandem Balance Lost- Step/Stand Stance Unilateral Leg Unable,assist to not fall Stance Total Score Roche Total Score ( 34 out of 56 points) Roche Impairment 20 to 39% Impaired (Score 34-44) Rating Gonzalez Fall Scale Copyright Permission PT-OP-E Functional Tests Start: 10/26/24 09:10 Freq: Status: Active Protocol: Document 10/26/24 09:41 KW (Rec: 10/26/24 12:50 KW Laptop) Functional Tests Timed Up and Go (TUG) Score 15 Comments unsteady PT-OP-F Manual Assessment Start: 10/26/24 09:10 Freq: Status: Active Protocol: Document 10/26/24 09:41 KW (Rec: 10/26/24 12:50 KW Laptop) Manual Assessments Joint Mobility Assessment Joint Mobility B hip joint mobility: hypermobile Assessment R knee: pain with overpressure flexion R patella adherence, stiffness with inferior mobs PT-OP-G Mobility & Gait Start: 10/26/24 09:10 Freq: Status: Active Protocol: Document 10/26/24 09:41 KW (Rec: 10/26/24 12:50 KW Laptop) OP Mobility Evaluation Transfers Sit to Stand use of hands Bed to Chair use of hands Transfers OP Gait Assessment Gait Gait Assistance Independent Required: Distance (Feet) 500 Assistive Devices Assistive Device Straight Cane Gait Deviations General Gait Pattern Antalgic,Decreased Stride Length,Decreased Feet Clearance,Lateral Trunk Lean,Wide Based Gait Comments Gait Comments toe out gait, significant B foot pronation in flats, significant femoral anteversion R PT-OP-J Posture/Palpation/Skin Start: 10/26/24 09:10 Freq: Status: Active Protocol: Document 10/26/24 09:41 KW (Rec: 10/26/24 12:50 KW Laptop) Posture Evaluation Position Standing Evaluation View Lateral Hip Posture (R) Internally Rotated Knee Posture (R) Genu Valgus Patellar Posture (R) Superior Ankle/Foot Posture (L) Pronated,(R) Pronated Foot Arch (L) Low Arch,(R) Low Arch PT-OP-K Range of Motion Start: 10/26/24 09:10 Freq: Status: Active Protocol: Document 10/26/24 09:41 KW (Rec: 10/26/24 12:50 KW Laptop) Hip Goniometric Range of Motion Hip Right Hip ROM WFL No Testing Position Supine Flexion w/Knee 120 Flexed Straight Leg Raise 90 Internal Rotation 15 External Rotation 25 Knee Goniometric Range of Motion Knee Right Knee ROM WFL No Patient Position Supine Flexion Active ( 110 degrees) Flexion Passive ( 112 degrees) Extension Active ( 0 degrees) Comments pain with OP R flexion PT-OP-L Special Tests Start: 10/26/24 09:10 Freq: Status: Active Protocol: Document 10/26/24 09:41 KW (Rec: 10/26/24 12:50 KW Laptop) Special Tests Knee Special Tests Patellar Grind Test Test Results (+) R Comments stiffness prox fib head PT-OP-M Strength Start: 10/26/24 09:10 Freq: Status: Active Protocol: Document 10/26/24 09:41 KW (Rec: 10/26/24 12:50 KW Laptop) Hip Strength Hip Manual Muscle Testing Right Flexion (L2) 3+ Fair+ Extension (S1) 3+ Fair+ Abduction 3+ Fair+ External Rotation 4- Good- Internal Rotation 4- Good- Knee Strength Knee Manual Muscle Testing Right Flexion (S2) 4- Good- Extension (L3) 4- Good- PT-OP-Q Treatments Start: 10/26/24 09:10 Freq: Status: Active Protocol: Document 10/28/24 09:56 TECHNOLOGY RESOURCE TEACHER (Rec: 10/28/24 10:44 TECHNOLOGY RESOURCE TEACHER Laptop) Cardio Equipment Recumbent Stepper (Sci-Fit) Duration (Minutes) 5 Resistance 3 Other difficulty keeping B feet in holders, cues for pushing through heels Therapeutic Exercises Supine Exercises bridging Supine Exercise Name supine bridge, 2nd set with L1 band around knees Side bilateral Reps/Minutes 2 x 10 Comments HEP review Sidelying Exercises clamshell Sidelying Exercise clamshell hip abd Name Side bilateral Reps/Minutes 2 x 10 Comments HEP review, VC to prevent hip roll back Standing Exercises Sit<>Stands Resistance L1 TB around knees Equipment Used 25 treatment table Reps/Minutes x10 Comments HEP review, TC to prevent ER of RLE and keeping hip abd Neuro Re-Education Treatment Balance Activities standing in corner Details Reviewed 2 HEP handouts for corner exercises Comments Regular stance on even floor PT-OP-T Assessment and Plan Start: 10/26/24 09:10 Freq: Status: Active Protocol: Document 10/28/24 09:56 TECHNOLOGY RESOURCE TEACHER (Rec: 10/28/24 10:44 TECHNOLOGY RESOURCE TEACHER Laptop) Physical Therapy Assessment Impairments Impairments Activity Tolerance,Balance,Functional Activities, Functional Mobility,Gait,Pain,Posture,ROM,Strength, Transfers Goals One Impairment lack of HEP Short Term Goal (STG patient is independent and compliance with HEP ) STG Duration 6 weeks Three Impairment impaired gait Short Term Goal (STG patient ambulates with B trekking poles or FWW for ) safety STG Duration 6 weeks Two Impairment impaired balance Short Term Goal (STG patient is able to hold modified tandem stance R/L and ) L/R for 20 sec patient is able to hold narrow YULY 20 sec STG Duration 6 weeks Assessment Summary Assessment Pt requiring cueing throughout session to stay on task. Focus this session on HEP review with moderate cueing but tolerated well. Will benefit from continued HEP review at next session and B hip abd strengthening. Physical Therapy Plan Frequency and Duration Frequency of 2x/Week Treatment Duration of 8 treatment (weeks) Plan of Care Start 10/26/24 Date Plan of Care End 12/26/24 Date Therapeutic Interventions Therapeutic Balance Training,Gait Training,Home Exercise Program, Interventions Joint Mobilizations,Manual Therapy,Neuromuscular Re- education,Orthotic/Prosthetic Management,Patient/ Caregiver Education,Self-Care/Home Management,Soft Tissue Mobilization,Taping,Therapeutic Activities, Therapeutic Exercises Modalities Cold Pack/Ice Massage,Electric Stimulation,Hot Packs, Ultrasound Next Visit Focus/Plan Next Note Type Treatment Note Next Visit Plan HEP review especially corner balance handout, standing B hip exercises in // bars, shuttle with TB around knees, B hip abd strengthening.
--- NOTE | 2024-11-01 10:41 | PT.OTN ---
Current Diagnoses Pain in left shoulder (11/01/24) Pain in right knee (11/01/24) Low back pain, unspecified (11/01/24) Physical Therapy Treatment Note PT-OP-A Visit Information Start: 10/26/24 09:10 Freq: Status: Active Protocol: Document 11/01/24 09:06 AB (Rec: 11/01/24 10:39 AB Laptop) Out-Patient Physical Therapy Visit Information Visit Information Visit Type Treatment Note Visit Note Access Code: [email or web address] Visit Start Time 09:05 Visit Stop Time 09:49 Visit Number 3 ( PN due due by 11/25/2024) Number of SPORTS MEDICINE SPECIALIST Visits 1 Evaluation Information Evaluation Date 10/26/24 PT-OP-B Current Condition Start: 10/26/24 09:10 Freq: Status: Active Protocol: Document 10/26/24 09:41 KW (Rec: 10/26/24 12:50 KW Laptop) Current Condition History of Current Condition Onset Date 2022 Current Complaints R knee pain, L shoulder pain History of Current 88 yo female, cues to PT with co R lateral knee pain Condition that impacts her mobility and balance. Her grand daughter is getting December 17 and patients daughter wanted her to come for PT to see if she could get stronger for the wedding. Also c/o L shoulder pain that has mostly resolved with the nicer weather and a course of oral steroids for arthritis. R lateral knee pain started with a cat bite back in 2022, sp I&D. No recent falls. Lives independently, drives. Patient attends chair [facility] at [facility]. No other exercise. Prior Treatments and x-rays in chart, OA R knee L shoulder Tests PT-OP-C Subjective Start: 10/26/24 09:10 Freq: Status: Active Protocol: Document 11/01/24 09:06 AB (Rec: 11/01/24 10:39 AB Laptop) OP-PT Subjective Patient Comments Patient Comments Patient reports using hiking pole just to get from car to buildings, in case of curbs, and also due to LE pain . Patient reports she is improving. L less than one, one, one sec, R LE 2,2,2 seconds. PT-OP-D Balance Start: 10/26/24 09:10 Freq: Status: Active Protocol: Document 10/26/24 09:41 KW (Rec: 10/26/24 12:50 KW Laptop) OP-PT Balance Assessment Standing Balance Static Standing Fair Balance Ability Dynamic Standing Poor Balance Ability Device Used chair, cane Standing Balance unable to get into tandem and hold 10 sec R/L or L/R Comments Balance Tests Romberg Romberg neg Single Limb Standing Single Limb- Right 3 Single Limb- Left 3 Tandem Tandem Standing <5 Roche Balance Assessment Evaluation Sitting to Standing Independent w/Hands Ability Unsupported Stance Safely- 2 minutes Sitting Unsupported, Safely- 2 minutes Feet on Floor Standing to Sitting Assist, Control w/Hands Ability Transfer Ability Safely, Hand Use Unsupported Stance- Supervision, 10 seconds Eyes Closed Unsupported Stance- Independent, 1 minute Eyes Open Reaching Forward Safely, 5 inches Standing Pick- Up Object From Supervision Floor Look Behind Shoulder Turns Sideways Only - Standing Turning 360 Degrees Turns slowly, but safely Unsupported Stance, Assist to Prevent Fall Alternating Feet on Stair Unsupported Tandem Balance Lost- Step/Stand Stance Unilateral Leg Unable,assist to not fall Stance Total Score Roche Total Score ( 34 out of 56 points) Roche Impairment 20 to 39% Impaired (Score 34-44) Rating Gonzalez Fall Scale Copyright Permission PT-OP-E Functional Tests Start: 10/26/24 09:10 Freq: Status: Active Protocol: Document 10/26/24 09:41 KW (Rec: 10/26/24 12:50 KW Laptop) Functional Tests Timed Up and Go (TUG) Score 15 Comments unsteady PT-OP-F Manual Assessment Start: 10/26/24 09:10 Freq: Status: Active Protocol: Document 10/26/24 09:41 KW (Rec: 10/26/24 12:50 KW Laptop) Manual Assessments Joint Mobility Assessment Joint Mobility B hip joint mobility: hypermobile Assessment R knee: pain with overpressure flexion R patella adherence, stiffness with inferior mobs PT-OP-G Mobility & Gait Start: 10/26/24 09:10 Freq: Status: Active Protocol: Document 10/26/24 09:41 KW (Rec: 10/26/24 12:50 KW Laptop) OP Mobility Evaluation Transfers Sit to Stand use of hands Bed to Chair use of hands Transfers OP Gait Assessment Gait Gait Assistance Independent Required: Distance (Feet) 500 Assistive Devices Assistive Device Straight Cane Gait Deviations General Gait Pattern Antalgic,Decreased Stride Length,Decreased Feet Clearance,Lateral Trunk Lean,Wide Based Gait Comments Gait Comments toe out gait, significant B foot pronation in flats, significant femoral anteversion R PT-OP-J Posture/Palpation/Skin Start: 10/26/24 09:10 Freq: Status: Active Protocol: Document 10/26/24 09:41 KW (Rec: 10/26/24 12:50 KW Laptop) Posture Evaluation Position Standing Evaluation View Lateral Hip Posture (R) Internally Rotated Knee Posture (R) Genu Valgus Patellar Posture (R) Superior Ankle/Foot Posture (L) Pronated,(R) Pronated Foot Arch (L) Low Arch,(R) Low Arch PT-OP-K Range of Motion Start: 10/26/24 09:10 Freq: Status: Active Protocol: Document 10/26/24 09:41 KW (Rec: 10/26/24 12:50 KW Laptop) Hip Goniometric Range of Motion Hip Right Hip ROM WFL No Testing Position Supine Flexion w/Knee 120 Flexed Straight Leg Raise 90 Internal Rotation 15 External Rotation 25 Knee Goniometric Range of Motion Knee Right Knee ROM WFL No Patient Position Supine Flexion Active ( 110 degrees) Flexion Passive ( 112 degrees) Extension Active ( 0 degrees) Comments pain with OP R flexion PT-OP-L Special Tests Start: 10/26/24 09:10 Freq: Status: Active Protocol: Document 10/26/24 09:41 KW (Rec: 10/26/24 12:50 KW Laptop) Special Tests Knee Special Tests Patellar Grind Test Test Results (+) R Comments stiffness prox fib head PT-OP-M Strength Start: 10/26/24 09:10 Freq: Status: Active Protocol: Document 10/26/24 09:41 KW (Rec: 10/26/24 12:50 KW Laptop) Hip Strength Hip Manual Muscle Testing Right Flexion (L2) 3+ Fair+ Extension (S1) 3+ Fair+ Abduction 3+ Fair+ External Rotation 4- Good- Internal Rotation 4- Good- Knee Strength Knee Manual Muscle Testing Right Flexion (S2) 4- Good- Extension (L3) 4- Good- PT-OP-Q Treatments Start: 10/26/24 09:10 Freq: Status: Active Protocol: Document 11/01/24 09:06 AB (Rec: 11/01/24 10:39 AB Laptop) Gym Equipment Shuttle Recovery unilateral squat Details cued knee alignment Resistance unable 37# this day Shuttle Recovery Stable Platform Reps/Time x10 Bilateral Squats Resistance 62# teal Shuttle Recovery Stable Platform Reps/Time 2x10 Therapeutic Exercises Supine Exercises bridging Supine Exercise Name supine bridge, 2nd set with L1 band around knees Side bilateral Reps/Minutes 2 x 10 Comments HEP review Sidelying Exercises clamshell Sidelying Exercise clamshell hip abd Name Side bilateral Resistance level one band Reps/Minutes 2 x 10 Comments monitored form Sitting Exercises seated hip abd with band Sitting Exercise HEP Name Resistance [place] level 3 Reps/Minutes one min X one Standing Exercises Sit<>Stands Standing Exercise varying seat heights, and then 1/2 to raised seat heith Name w/o UE use Resistance L1 TB around knees Reps/Minutes x10 Comments requires UE use for all but squat 1/2 to seat. Pt ed tactile cues for hip h Neuro Re-Education Treatment Balance Activities tandem stepping Details hand above bars in initiation, CGA Reps/Duration fwd and retro 10 feet X 2 each SLS Details hand above bars in initiation, with supervision Reps/Duration 3 min PT-OP-T Assessment and Plan Start: 10/26/24 09:10 Freq: Status: Active Protocol: Document 11/01/24 09:06 AB (Rec: 11/01/24 10:39 AB Laptop) Physical Therapy Assessment Goals One Impairment lack of HEP Short Term Goal (STG patient is independent and compliance with HEP ) STG Duration 6 weeks Assessment Summary Assessment post glute med activation L LE 4, 3 sec R LE 6, 7 sec without UE use SLS. Good form for clamshell with level one band. Sit to stand requires excessive UE use from standard chair height Physical Therapy Plan Frequency and Duration Frequency of 2x/Week Treatment Duration of 8 treatment (weeks) Plan of Care Start 10/26/24 Date Plan of Care End 12/26/24 Date Next Visit Focus/Plan Next Note Type Treatment Note Next Visit Plan HEP review corner balance handout, standing B hip exercises in // bars, shuttle with TB around knees, B hip abd strengthening.
--- NOTE | 2024-11-04 10:37 | PT.OTN ---
Current Diagnoses Pain in left shoulder (11/04/24) Pain in right knee (11/04/24) Low back pain, unspecified (11/04/24) Physical Therapy Treatment Note PT-OP-A Visit Information Start: 10/26/24 09:10 Freq: Status: Active Protocol: Document 11/04/24 09:49 AB (Rec: 11/04/24 10:36 AB Laptop) Out-Patient Physical Therapy Visit Information Visit Information Visit Type Treatment Note Visit Note Access Code: [email or web address] Visit Start Time 09:50 Visit Stop Time 10:34 Visit Number 4 ( PN due due by 11/25/2024) Number of ROPE RIDER Visits 2 Evaluation Information Evaluation Date 10/26/24 PT-OP-B Current Condition Start: 10/26/24 09:10 Freq: Status: Active Protocol: Document 10/26/24 09:41 KW (Rec: 10/26/24 12:50 KW Laptop) Current Condition History of Current Condition Onset Date 2022 Current Complaints R knee pain, L shoulder pain History of Current 88 yo female, cues to PT with co R lateral knee pain Condition that impacts her mobility and balance. Her grand daughter is getting December 17 and patients daughter wanted her to come for PT to see if she could get stronger for the wedding. Also c/o L shoulder pain that has mostly resolved with the nicer weather and a course of oral steroids for arthritis. R lateral knee pain started with a cat bite back in 2022, sp I&D. No recent falls. Lives independently, drives. Patient attends chair [facility] at [facility]. No other exercise. Prior Treatments and x-rays in chart, OA R knee L shoulder Tests PT-OP-C Subjective Start: 10/26/24 09:10 Freq: Status: Active Protocol: Document 11/04/24 09:49 AB (Rec: 11/04/24 10:36 AB Laptop) OP-PT Subjective Patient Comments Patient Comments Patient into session without walking stick. Patient reports she woke up this morning and her back and leg hurt. Patient comments she has less energy since starting PT. Patient reports she is doing her exercises , but didn't practice the balance so much per patient. PT-OP-D Balance Start: 10/26/24 09:10 Freq: Status: Active Protocol: Document 10/26/24 09:41 KW (Rec: 10/26/24 12:50 KW Laptop) OP-PT Balance Assessment Standing Balance Static Standing Fair Balance Ability Dynamic Standing Poor Balance Ability Device Used chair, cane Standing Balance unable to get into tandem and hold 10 sec R/L or L/R Comments Balance Tests Romberg Romberg neg Single Limb Standing Single Limb- Right 3 Single Limb- Left 3 Tandem Tandem Standing <5 Roche Balance Assessment Evaluation Sitting to Standing Independent w/Hands Ability Unsupported Stance Safely- 2 minutes Sitting Unsupported, Safely- 2 minutes Feet on Floor Standing to Sitting Assist, Control w/Hands Ability Transfer Ability Safely, Hand Use Unsupported Stance- Supervision, 10 seconds Eyes Closed Unsupported Stance- Independent, 1 minute Eyes Open Reaching Forward Safely, 5 inches Standing Pick- Up Object From Supervision Floor Look Behind Shoulder Turns Sideways Only - Standing Turning 360 Degrees Turns slowly, but safely Unsupported Stance, Assist to Prevent Fall Alternating Feet on Stair Unsupported Tandem Balance Lost- Step/Stand Stance Unilateral Leg Unable,assist to not fall Stance Total Score Rcohe Total Score ( 34 out of 56 points) Roche Impairment 20 to 39% Impaired (Score 34-44) Rating Gonzalez Fall Scale Copyright Permission PT-OP-E Functional Tests Start: 10/26/24 09:10 Freq: Status: Active Protocol: Document 10/26/24 09:41 KW (Rec: 10/26/24 12:50 KW Laptop) Functional Tests Timed Up and Go (TUG) Score 15 Comments unsteady PT-OP-F Manual Assessment Start: 10/26/24 09:10 Freq: Status: Active Protocol: Document 10/26/24 09:41 KW (Rec: 10/26/24 12:50 KW Laptop) Manual Assessments Joint Mobility Assessment Joint Mobility B hip joint mobility: hypermobile Assessment R knee: pain with overpressure flexion R patella adherence, stiffness with inferior mobs PT-OP-G Mobility & Gait Start: 10/26/24 09:10 Freq: Status: Active Protocol: Document 10/26/24 09:41 KW (Rec: 10/26/24 12:50 KW Laptop) OP Mobility Evaluation Transfers Sit to Stand use of hands Bed to Chair use of hands Transfers OP Gait Assessment Gait Gait Assistance Independent Required: Distance (Feet) 500 Assistive Devices Assistive Device Straight Cane Gait Deviations General Gait Pattern Antalgic,Decreased Stride Length,Decreased Feet Clearance,Lateral Trunk Lean,Wide Based Gait Comments Gait Comments toe out gait, significant B foot pronation in flats, significant femoral anteversion R PT-OP-J Posture/Palpation/Skin Start: 10/26/24 09:10 Freq: Status: Active Protocol: Document 10/26/24 09:41 KW (Rec: 10/26/24 12:50 KW Laptop) Posture Evaluation Position Standing Evaluation View Lateral Hip Posture (R) Internally Rotated Knee Posture (R) Genu Valgus Patellar Posture (R) Superior Ankle/Foot Posture (L) Pronated,(R) Pronated Foot Arch (L) Low Arch,(R) Low Arch PT-OP-K Range of Motion Start: 10/26/24 09:10 Freq: Status: Active Protocol: Document 10/26/24 09:41 KW (Rec: 10/26/24 12:50 KW Laptop) Hip Goniometric Range of Motion Hip Right Hip ROM WFL No Testing Position Supine Flexion w/Knee 120 Flexed Straight Leg Raise 90 Internal Rotation 15 External Rotation 25 Knee Goniometric Range of Motion Knee Right Knee ROM WFL No Patient Position Supine Flexion Active ( 110 degrees) Flexion Passive ( 112 degrees) Extension Active ( 0 degrees) Comments pain with OP R flexion PT-OP-L Special Tests Start: 10/26/24 09:10 Freq: Status: Active Protocol: Document 10/26/24 09:41 KW (Rec: 10/26/24 12:50 KW Laptop) Special Tests Knee Special Tests Patellar Grind Test Test Results (+) R Comments stiffness prox fib head PT-OP-M Strength Start: 10/26/24 09:10 Freq: Status: Active Protocol: Document 10/26/24 09:41 KW (Rec: 10/26/24 12:50 KW Laptop) Hip Strength Hip Manual Muscle Testing Right Flexion (L2) 3+ Fair+ Extension (S1) 3+ Fair+ Abduction 3+ Fair+ External Rotation 4- Good- Internal Rotation 4- Good- Knee Strength Knee Manual Muscle Testing Right Flexion (S2) 4- Good- Extension (L3) 4- Good- PT-OP-Q Treatments Start: 10/26/24 09:10 Freq: Status: Active Protocol: Document 11/04/24 09:49 AB (Rec: 11/04/24 10:36 AB Laptop) Gym Equipment Shuttle Recovery unilateral squat Details cued knee alignment Resistance 37 # L 25 # R Shuttle Recovery Stable Platform Reps/Time x10 Bilateral Squats Resistance 62# teal Shuttle Recovery Stable Platform Reps/Time 2x15 with level one band tied above knees Therapeutic Exercises Sitting Exercises seated hip abd with band Sitting Exercise HEP Name Resistance [place] green level 3 Reps/Minutes one min X one Comments Review, patient intiates without a hold Neuro Re-Education Treatment Balance Activities standing in corner Details Reviewed 2 HEP handouts for corner exercises Comments Regular stance on even floor eyes closed hands at sides, (holding chair toe/heel raises, marching ) arms crossed WBOS head mvt eyes open and closed, half tandem head mvt then head mvt with eyes closed, refused full tandem reports too dizzy when performing 1/2 tandem. Occ CGA VC to lower slowly with heel raise, Assist with verbal cues with patient reading handout first Pt ed family to assist with tandem and mod tandem. PT-OP-T Assessment and Plan Start: 10/26/24 09:10 Freq: Status: Active Protocol: Document 11/04/24 09:49 AB (Rec: 11/04/24 10:36 AB Laptop) Physical Therapy Assessment Goals One Impairment lack of HEP Short Term Goal (STG patient is independent and compliance with HEP ) STG Duration 6 weeks Three Impairment impaired gait Short Term Goal (STG patient ambulates with B trekking poles or FWW for ) safety STG Duration 6 weeks Two Impairment impaired balance Short Term Goal (STG patient is able to hold modified tandem stance R/L and ) L/R for 20 sec patient is able to hold narrow YULY 20 sec STG Duration 6 weeks Assessment Summary Assessment Increased SLS post glute med activation, but patient initiates exercises incorrectly, Verbal cues required for all balance exercises, which patient reports she hasn't been performing at home, declined full tandem due to feeling too dizzy. Physical Therapy Plan Frequency and Duration Frequency of 2x/Week Treatment Duration of 8 treatment (weeks) Plan of Care Start 10/26/24 Date Plan of Care End 12/26/24 Date Next Visit Focus/Plan Next Note Type Treatment Note Next Visit Plan HEP review corner balance handout/ continue to review balace, standing B hip exercises in // bars, shuttle with TB around knees, B hip abd strengthening.
--- NOTE | 2024-11-08 10:47 | PT.OTN ---
Current Diagnoses Pain in left shoulder (11/08/24) Pain in right knee (11/08/24) Low back pain, unspecified (11/08/24) Physical Therapy Treatment Note PT-OP-A Visit Information Start: 10/26/24 09:10 Freq: Status: Active Protocol: Document 11/08/24 08:12 DIRECTOR OF [employer]ER [employer] (Rec: 11/08/24 10:46 DIRECTOR OF [employer] MARK[employer] Laptop) Out-Patient Physical Therapy Visit Information Visit Information Visit Type Treatment Note Visit Start Time 09:50 Visit Stop Time 10:30 Visit Number 5 Number of EXTERMINATOR Visits 0 PT-OP-B Current Condition Start: 10/26/24 09:10 Freq: Status: Active Protocol: Document 10/26/24 09:41 KW (Rec: 10/26/24 12:50 KW Laptop) Current Condition History of Current Condition Onset Date 2022 Current Complaints R knee pain, L shoulder pain History of Current 88 yo female, cues to PT with co R lateral knee pain Condition that impacts her mobility and balance. Her grand daughter is getting December 17 and patients daughter wanted her to come for PT to see if she could get stronger for the wedding. Also c/o L shoulder pain that has mostly resolved with the nicer weather and a course of oral steroids for arthritis. R lateral knee pain started with a cat bite back in 2022, sp I&D. No recent falls. Lives independently, drives. Patient attends chair YOGA at [facility]. No other exercise. Prior Treatments and x-rays in chart, OA R knee L shoulder Tests PT-OP-C Subjective Start: 10/26/24 09:10 Freq: Status: Active Protocol: Document 11/08/24 08:12 DIRECTOR OF [employer] (Rec: 11/08/24 10:46 DIRECTOR OF CON[employer] MARK[employer] Laptop) OP-PT Subjective Patient Comments Patient Comments Pt amb into session with 1 walking stick. She reports she has a lot going on in her life right now and feels it is impacting her unsteadiness today. She reports she felt dizzy and off after she practiced the balance exercise with eyes closed after last session and does not like it, but feels like everything else is helping her. Has been working on her HEP at home with her daughter's help. Feels like coming in 2x/wk is working really well for her and progress. PT-OP-D Balance Start: 10/26/24 09:10 Freq: Status: Active Protocol: Document 10/26/24 09:41 KW (Rec: 10/26/24 12:50 KW Laptop) OP-PT Balance Assessment Standing Balance Static Standing Fair Balance Ability Dynamic Standing Poor Balance Ability Device Used chair, cane Standing Balance unable to get into tandem and hold 10 sec R/L or L/R Comments Balance Tests Romberg Romberg neg Single Limb Standing Single Limb- Right 3 Single Limb- Left 3 Tandem Tandem Standing <5 Roche Balance Assessment Evaluation Sitting to Standing Independent w/Hands Ability Unsupported Stance Safely- 2 minutes Sitting Unsupported, Safely- 2 minutes Feet on Floor Standing to Sitting Assist, Control w/Hands Ability Transfer Ability Safely, Hand Use Unsupported Stance- Supervision, 10 seconds Eyes Closed Unsupported Stance- Independent, 1 minute Eyes Open Reaching Forward Safely, 5 inches Standing Pick- Up Object From Supervision Floor Look Behind Shoulder Turns Sideways Only - Standing Turning 360 Degrees Turns slowly, but safely Unsupported Stance, Assist to Prevent Fall Alternating Feet on Stair Unsupported Tandem Balance Lost- Step/Stand Stance Unilateral Leg Unable,assist to not fall Stance Total Score Roche Total Score ( 34 out of 56 points) Roche Impairment 20 to 39% Impaired (Score 34-44) Rating Gonzalez Fall Scale Copyright Permission PT-OP-E Functional Tests Start: 10/26/24 09:10 Freq: Status: Active Protocol: Document 10/26/24 09:41 KW (Rec: 10/26/24 12:50 KW Laptop) Functional Tests Timed Up and Go (TUG) Score 15 Comments unsteady PT-OP-F Manual Assessment Start: 10/26/24 09:10 Freq: Status: Active Protocol: Document 10/26/24 09:41 KW (Rec: 10/26/24 12:50 KW Laptop) Manual Assessments Joint Mobility Assessment Joint Mobility B hip joint mobility: hypermobile Assessment R knee: pain with overpressure flexion R patella adherence, stiffness with inferior mobs PT-OP-G Mobility & Gait Start: 10/26/24 09:10 Freq: Status: Active Protocol: Document 10/26/24 09:41 KW (Rec: 10/26/24 12:50 KW Laptop) OP Mobility Evaluation Transfers Sit to Stand use of hands Bed to Chair use of hands Transfers OP Gait Assessment Gait Gait Assistance Independent Required: Distance (Feet) 500 Assistive Devices Assistive Device Straight Cane Gait Deviations General Gait Pattern Antalgic,Decreased Stride Length,Decreased Feet Clearance,Lateral Trunk Lean,Wide Based Gait Comments Gait Comments toe out gait, significant B foot pronation in flats, significant femoral anteversion R PT-OP-J Posture/Palpation/Skin Start: 10/26/24 09:10 Freq: Status: Active Protocol: Document 10/26/24 09:41 KW (Rec: 10/26/24 12:50 KW Laptop) Posture Evaluation Position Standing Evaluation View Lateral Hip Posture (R) Internally Rotated Knee Posture (R) Genu Valgus Patellar Posture (R) Superior Ankle/Foot Posture (L) Pronated,(R) Pronated Foot Arch (L) Low Arch,(R) Low Arch PT-OP-K Range of Motion Start: 10/26/24 09:10 Freq: Status: Active Protocol: Document 10/26/24 09:41 KW (Rec: 10/26/24 12:50 KW Laptop) Hip Goniometric Range of Motion Hip Right Hip ROM WFL No Testing Position Supine Flexion w/Knee 120 Flexed Straight Leg Raise 90 Internal Rotation 15 External Rotation 25 Knee Goniometric Range of Motion Knee Right Knee ROM WFL No Patient Position Supine Flexion Active ( 110 degrees) Flexion Passive ( 112 degrees) Extension Active ( 0 degrees) Comments pain with OP R flexion PT-OP-L Special Tests Start: 10/26/24 09:10 Freq: Status: Active Protocol: Document 10/26/24 09:41 KW (Rec: 10/26/24 12:50 KW Laptop) Special Tests Knee Special Tests Patellar Grind Test Test Results (+) R Comments stiffness prox fib head PT-OP-M Strength Start: 10/26/24 09:10 Freq: Status: Active Protocol: Document 10/26/24 09:41 KW (Rec: 10/26/24 12:50 KW Laptop) Hip Strength Hip Manual Muscle Testing Right Flexion (L2) 3+ Fair+ Extension (S1) 3+ Fair+ Abduction 3+ Fair+ External Rotation 4- Good- Internal Rotation 4- Good- Knee Strength Knee Manual Muscle Testing Right Flexion (S2) 4- Good- Extension (L3) 4- Good- PT-OP-Q Treatments Start: 10/26/24 09:10 Freq: Status: Active Protocol: Document 11/08/24 08:12 DIRECTOR OF [employer] (Rec: 11/08/24 10:46 DIRECTOR OF [employer]ER MARKETING Laptop) Therapeutic Exercises Supine Exercises HS Stretch Supine Exercise Name active quad set with manual overpressure Side right Equipment Used towel roll under heel Reps/Minutes x10 active with 5s hold, manual overpressure 30sx3 Sitting Exercises seated hip abd with band Sitting Exercise HEP Name Resistance [place] green level 3 Reps/Minutes one min X one Comments HEP review, performs correctly without VC Standing Exercises Sit<>Stands Standing Exercise 22.75 mat table Name Reps/Minutes x10 Comments HEP review, tactile cues to prevent R hip IR Manual Therapy Treatment Consent Patient gave verbal Yes consent for manual treatment Soft Tissue Mobilization HS/Gastroc Body Location R HS and gastroc Mobilization Type Cross-Friction,Rolling Intensity/Depth Deep Body Position Supine Comments with RLE in elevation for additional stretch Neuro Re-Education Treatment Balance Activities SLS Details modified SLS: toe taps on 6 cone Surface solid Reps/Duration x6 each LE Comments CGA-min A standing in corner Details HEP review Reps/Duration 30s x2 each Comments regular stance eyes closed, rhomberg stance eyes closed , SBA PT-OP-T Assessment and Plan Start: 10/26/24 09:10 Freq: Status: Active Protocol: Document 11/08/24 08:12 DIRECTOR OF [employer] (Rec: 11/08/24 10:46 DIRECTOR OF [employer] MARKETING Laptop) Physical Therapy Assessment Impairments Impairments Activity Tolerance,Balance,Functional Activities, Functional Mobility,Gait,Pain,Posture,ROM,Strength, Transfers Goals One Impairment lack of HEP Short Term Goal (STG patient is independent and compliance with HEP ) STG Duration 6 weeks Three Impairment impaired gait Short Term Goal (STG patient ambulates with B trekking poles or FWW for ) safety STG Duration 6 weeks Two Impairment impaired balance Short Term Goal (STG patient is able to hold modified tandem stance R/L and ) L/R for 20 sec patient is able to hold narrow YULY 20 sec STG Duration 6 weeks Progress Towards Goals Progress Towards Progressing Toward Goals Goals Progress Comments reports balance exercises are getting easier Assessment Summary Assessment Pt demonstrates slight improved R hip strength during sit<>stands, very tight R HS with difficulty extending R knee during exercises and benefitted from STM and active stretching to R HS, and worked on habituation to balance exercises with eyes closed. Pt is improving and will continue to benefit from skilled PT. Physical Therapy Plan Frequency and Duration Frequency of 2x/Week Treatment Duration of 8 treatment (weeks) Plan of Care Start 10/26/24 Date Plan of Care End 12/26/24 Date Therapeutic Interventions Therapeutic Balance Training,Gait Training,Home Exercise Program, Interventions Joint Mobilizations,Manual Therapy,Neuromuscular Re- education,Orthotic/Prosthetic Management,Patient/ Caregiver Education,Self-Care/Home Management,Soft Tissue Mobilization,Taping,Therapeutic Activities, Therapeutic Exercises Modalities Cold Pack/Ice Massage,Electric Stimulation,Hot Packs, Ultrasound Next Visit Focus/Plan Next Note Type Treatment Note Next Visit Plan HEP review corner balance handout, standing B hip exercises in // bars, shuttle with TB around knees, heat>STM>active stretching to R HS
--- NOTE | 2024-11-10 10:44 | PT.OTN ---
Current Diagnoses Pain in left shoulder (11/10/24) Pain in right knee (11/10/24) Low back pain, unspecified (11/10/24) Physical Therapy Treatment Note PT-OP-A Visit Information Start: 10/26/24 09:10 Freq: Status: Active Protocol: Document 11/10/24 09:51 AIRFRAME DESIGN ENGINEER (Rec: 11/10/24 10:44 AIRFRAME DESIGN ENGINEER Laptop) Out-Patient Physical Therapy Visit Information Visit Information Visit Type Treatment Note Visit Start Time 09:50 Visit Stop Time 10:30 Visit Number 6 Number of MEDIA CONSULTANT Visits 0 PT-OP-B Current Condition Start: 10/26/24 09:10 Freq: Status: Active Protocol: Document 10/26/24 09:41 KW (Rec: 10/26/24 12:50 KW Laptop) Current Condition History of Current Condition Onset Date 2022 Current Complaints R knee pain, L shoulder pain History of Current 88 yo female, cues to PT with co R lateral knee pain Condition that impacts her mobility and balance. Her grand daughter is getting December 17 and patients daughter wanted her to come for PT to see if she could get stronger for the wedding. Also c/o L shoulder pain that has mostly resolved with the nicer weather and a course of oral steroids for arthritis. R lateral knee pain started with a cat bite back in 2022, sp I&D. No recent falls. Lives independently, drives. Patient attends chair [facility] at [facility]. No other exercise. Prior Treatments and x-rays in chart, OA R knee L shoulder Tests PT-OP-C Subjective Start: 10/26/24 09:10 Freq: Status: Active Protocol: Document 11/10/24 09:51 AIRFRAME DESIGN ENGINEER (Rec: 11/10/24 10:44 AIRFRAME DESIGN ENGINEER Laptop) OP-PT Subjective Patient Comments Patient Comments Pt reports she had a hard day yesterday and therefore has increased pain in R low back down to R thigh and knee today, took ibuprofen and put hot pack on low back to reduce pain. Reports increased pain after yard work on thursday and after last treatment session on thursday, possibly caused by HS stretch. PT-OP-D Balance Start: 10/26/24 09:10 Freq: Status: Active Protocol: Document 10/26/24 09:41 KW (Rec: 10/26/24 12:50 KW Laptop) OP-PT Balance Assessment Standing Balance Static Standing Fair Balance Ability Dynamic Standing Poor Balance Ability Device Used chair, cane Standing Balance unable to get into tandem and hold 10 sec R/L or L/R Comments Balance Tests Romberg Romberg neg Single Limb Standing Single Limb- Right 3 Single Limb- Left 3 Tandem Tandem Standing <5 Roche Balance Assessment Evaluation Sitting to Standing Independent w/Hands Ability Unsupported Stance Safely- 2 minutes Sitting Unsupported, Safely- 2 minutes Feet on Floor Standing to Sitting Assist, Control w/Hands Ability Transfer Ability Safely, Hand Use Unsupported Stance- Supervision, 10 seconds Eyes Closed Unsupported Stance- Independent, 1 minute Eyes Open Reaching Forward Safely, 5 inches Standing Pick- Up Object From Supervision Floor Look Behind Shoulder Turns Sideways Only - Standing Turning 360 Degrees Turns slowly, but safely Unsupported Stance, Assist to Prevent Fall Alternating Feet on Stair Unsupported Tandem Balance Lost- Step/Stand Stance Unilateral Leg Unable,assist to not fall Stance Total Score Roche Total Score ( 34 out of 56 points) Roche Impairment 20 to 39% Impaired (Score 34-44) Rating Gonzalez Fall Scale Copyright Permission PT-OP-E Functional Tests Start: 10/26/24 09:10 Freq: Status: Active Protocol: Document 10/26/24 09:41 KW (Rec: 10/26/24 12:50 KW Laptop) Functional Tests Timed Up and Go (TUG) Score 15 Comments unsteady PT-OP-F Manual Assessment Start: 10/26/24 09:10 Freq: Status: Active Protocol: Document 10/26/24 09:41 KW (Rec: 10/26/24 12:50 KW Laptop) Manual Assessments Joint Mobility Assessment Joint Mobility B hip joint mobility: hypermobile Assessment R knee: pain with overpressure flexion R patella adherence, stiffness with inferior mobs PT-OP-G Mobility & Gait Start: 10/26/24 09:10 Freq: Status: Active Protocol: Document 10/26/24 09:41 KW (Rec: 10/26/24 12:50 KW Laptop) OP Mobility Evaluation Transfers Sit to Stand use of hands Bed to Chair use of hands Transfers OP Gait Assessment Gait Gait Assistance Independent Required: Distance (Feet) 500 Assistive Devices Assistive Device Straight Cane Gait Deviations General Gait Pattern Antalgic,Decreased Stride Length,Decreased Feet Clearance,Lateral Trunk Lean,Wide Based Gait Comments Gait Comments toe out gait, significant B foot pronation in flats, significant femoral anteversion R PT-OP-J Posture/Palpation/Skin Start: 10/26/24 09:10 Freq: Status: Active Protocol: Document 10/26/24 09:41 KW (Rec: 10/26/24 12:50 KW Laptop) Posture Evaluation Position Standing Evaluation View Lateral Hip Posture (R) Internally Rotated Knee Posture (R) Genu Valgus Patellar Posture (R) Superior Ankle/Foot Posture (L) Pronated,(R) Pronated Foot Arch (L) Low Arch,(R) Low Arch PT-OP-K Range of Motion Start: 10/26/24 09:10 Freq: Status: Active Protocol: Document 10/26/24 09:41 KW (Rec: 10/26/24 12:50 KW Laptop) Hip Goniometric Range of Motion Hip Right Hip ROM WFL No Testing Position Supine Flexion w/Knee 120 Flexed Straight Leg Raise 90 Internal Rotation 15 External Rotation 25 Knee Goniometric Range of Motion Knee Right Knee ROM WFL No Patient Position Supine Flexion Active ( 110 degrees) Flexion Passive ( 112 degrees) Extension Active ( 0 degrees) Comments pain with OP R flexion PT-OP-L Special Tests Start: 10/26/24 09:10 Freq: Status: Active Protocol: Document 10/26/24 09:41 KW (Rec: 10/26/24 12:50 KW Laptop) Special Tests Knee Special Tests Patellar Grind Test Test Results (+) R Comments stiffness prox fib head PT-OP-M Strength Start: 10/26/24 09:10 Freq: Status: Active Protocol: Document 10/26/24 09:41 KW (Rec: 10/26/24 12:50 KW Laptop) Hip Strength Hip Manual Muscle Testing Right Flexion (L2) 3+ Fair+ Extension (S1) 3+ Fair+ Abduction 3+ Fair+ External Rotation 4- Good- Internal Rotation 4- Good- Knee Strength Knee Manual Muscle Testing Right Flexion (S2) 4- Good- Extension (L3) 4- Good- PT-OP-Q Treatments Start: 10/26/24 09:10 Freq: Status: Active Protocol: Document 11/10/24 09:51 AIRFRAME DESIGN ENGINEER (Rec: 11/10/24 10:44 AIRFRAME DESIGN ENGINEER Laptop) Cardio Equipment Recumbent Stepper (Sci-Fit) Duration (Minutes) 7 Resistance L3 Seat Position 7 Other NuStep BUEs and BLEs for warm up Therapeutic Exercises Supine Exercises Piriformis Stretch Supine Exercise Name Figure 4, Added to HEP Side right Reps/Minutes 30sx4 Sidelying Exercises clamshell Sidelying Exercise clamshell hip abd Name Side bilateral Resistance gravity Reps/Minutes 10x2 Comments monitored form Standing Exercises Hip Ext Side bilateral Equipment Used // bars Reps/Minutes x10 Hip Abd Side bilateral Equipment Used // bars Reps/Minutes x10 Marching Side bilateral Equipment Used // bars Reps/Minutes x10 PT-OP-T Assessment and Plan Start: 10/26/24 09:10 Freq: Status: Active Protocol: Document 11/10/24 09:51 AIRFRAME DESIGN ENGINEER (Rec: 11/10/24 10:44 AIRFRAME DESIGN ENGINEER Laptop) Physical Therapy Assessment Impairments Impairments Activity Tolerance,Balance,Functional Activities, Functional Mobility,Gait,Pain,Posture,ROM,Strength, Transfers Goals One Impairment lack of HEP Short Term Goal (STG patient is independent and compliance with HEP ) STG Duration 6 weeks Three Impairment impaired gait Short Term Goal (STG patient ambulates with B trekking poles or FWW for ) safety STG Duration 6 weeks Two Impairment impaired balance Short Term Goal (STG patient is able to hold modified tandem stance R/L and ) L/R for 20 sec patient is able to hold narrow YULY 20 sec STG Duration 6 weeks Progress Towards Goals Progress Towards Progressing Toward Goals Goals Progress Comments reports balance/pain increased after last session but improved after piriformis stretch this session Assessment Summary Assessment Pt with increased pain to R hip and knee this session but able to identify tight piriformis as pt's cause of pain and improved with supine figure 4 stretch and given as HEP handout. Pt performed standing hip exercises for strengthening and balance this session and demonstrated improved form after providing cues. Physical Therapy Plan Frequency and Duration Frequency of 2x/Week Treatment Duration of 8 treatment (weeks) Plan of Care Start 10/26/24 Date Plan of Care End 12/26/24 Date Therapeutic Interventions Therapeutic Balance Training,Gait Training,Home Exercise Program, Interventions Joint Mobilizations,Manual Therapy,Neuromuscular Re- education,Orthotic/Prosthetic Management,Patient/ Caregiver Education,Self-Care/Home Management,Soft Tissue Mobilization,Taping,Therapeutic Activities, Therapeutic Exercises Modalities Cold Pack/Ice Massage,Electric Stimulation,Hot Packs, Ultrasound Next Visit Focus/Plan Next Note Type Treatment Note Next Visit Plan Review Buffy tim figure 4 stretch as HEP, shuttle with TB around knees, standing balance exercises
--- NOTE | 2024-11-15 13:39 | PT.OTN ---
Current Diagnoses Pain in left shoulder (11/15/24) Pain in right knee (11/15/24) Low back pain, unspecified (11/15/24) Physical Therapy Treatment Note PT-OP-A Visit Information Start: 10/26/24 09:10 Freq: Status: Active Protocol: Document 11/15/24 10:47 YARDER (Rec: 11/15/24 11:33 YARDER Laptop) Out-Patient Physical Therapy Visit Information Visit Information Visit Type Treatment Note Visit Start Time 10:48 Visit Stop Time 11:28 Visit Number 7 Number of INVENTORY COORDINATOR Visits 0 PT-OP-B Current Condition Start: 10/26/24 09:10 Freq: Status: Active Protocol: Document 10/26/24 09:41 KW (Rec: 10/26/24 12:50 KW Laptop) Current Condition History of Current Condition Onset Date 2022 Current Complaints R knee pain, L shoulder pain History of Current 88 yo female, cues to PT with co R lateral knee pain Condition that impacts her mobility and balance. Her grand daughter is getting December 17 and patients daughter wanted her to come for PT to see if she could get stronger for the wedding. Also c/o L shoulder pain that has mostly resolved with the nicer weather and a course of oral steroids for arthritis. R lateral knee pain started with a cat bite back in 2022, sp I&D. No recent falls. Lives independently, drives. Patient attends chair [facility] at [facility]. No other exercise. Prior Treatments and x-rays in chart, OA R knee L shoulder Tests PT-OP-C Subjective Start: 10/26/24 09:10 Freq: Status: Active Protocol: Document 11/15/24 10:47 YARDER (Rec: 11/15/24 11:33 YARDER Laptop) OP-PT Subjective Patient Comments Patient Comments Pt amb into session with walking stick, reports she is still struggling with pain in knees when performing sit <>stands, figure 4 stretch has been feeling good at piriformis but increasing pain at R knee joint and back of thigh. PT-OP-D Balance Start: 10/26/24 09:10 Freq: Status: Active Protocol: Document 10/26/24 09:41 KW (Rec: 10/26/24 12:50 KW Laptop) OP-PT Balance Assessment Standing Balance Static Standing Fair Balance Ability Dynamic Standing Poor Balance Ability Device Used chair, cane Standing Balance unable to get into tandem and hold 10 sec R/L or L/R Comments Balance Tests Romberg Romberg neg Single Limb Standing Single Limb- Right 3 Single Limb- Left 3 Tandem Tandem Standing <5 Roche Balance Assessment Evaluation Sitting to Standing Independent w/Hands Ability Unsupported Stance Safely- 2 minutes Sitting Unsupported, Safely- 2 minutes Feet on Floor Standing to Sitting Assist, Control w/Hands Ability Transfer Ability Safely, Hand Use Unsupported Stance- Supervision, 10 seconds Eyes Closed Unsupported Stance- Independent, 1 minute Eyes Open Reaching Forward Safely, 5 inches Standing Pick- Up Object From Supervision Floor Look Behind Shoulder Turns Sideways Only - Standing Turning 360 Degrees Turns slowly, but safely Unsupported Stance, Assist to Prevent Fall Alternating Feet on Stair Unsupported Tandem Balance Lost- Step/Stand Stance Unilateral Leg Unable,assist to not fall Stance Total Score Roche Total Score ( 34 out of 56 points) Roche Impairment 20 to 39% Impaired (Score 34-44) Rating Gonzalez Fall Scale Copyright Permission PT-OP-E Functional Tests Start: 10/26/24 09:10 Freq: Status: Active Protocol: Document 10/26/24 09:41 KW (Rec: 10/26/24 12:50 KW Laptop) Functional Tests Timed Up and Go (TUG) Score 15 Comments unsteady PT-OP-F Manual Assessment Start: 10/26/24 09:10 Freq: Status: Active Protocol: Document 10/26/24 09:41 KW (Rec: 10/26/24 12:50 KW Laptop) Manual Assessments Joint Mobility Assessment Joint Mobility B hip joint mobility: hypermobile Assessment R knee: pain with overpressure flexion R patella adherence, stiffness with inferior mobs PT-OP-G Mobility & Gait Start: 10/26/24 09:10 Freq: Status: Active Protocol: Document 10/26/24 09:41 KW (Rec: 10/26/24 12:50 KW Laptop) OP Mobility Evaluation Transfers Sit to Stand use of hands Bed to Chair use of hands Transfers OP Gait Assessment Gait Gait Assistance Independent Required: Distance (Feet) 500 Assistive Devices Assistive Device Straight Cane Gait Deviations General Gait Pattern Antalgic,Decreased Stride Length,Decreased Feet Clearance,Lateral Trunk Lean,Wide Based Gait Comments Gait Comments toe out gait, significant B foot pronation in flats, significant femoral anteversion R PT-OP-J Posture/Palpation/Skin Start: 10/26/24 09:10 Freq: Status: Active Protocol: Document 10/26/24 09:41 KW (Rec: 10/26/24 12:50 KW Laptop) Posture Evaluation Position Standing Evaluation View Lateral Hip Posture (R) Internally Rotated Knee Posture (R) Genu Valgus Patellar Posture (R) Superior Ankle/Foot Posture (L) Pronated,(R) Pronated Foot Arch (L) Low Arch,(R) Low Arch PT-OP-K Range of Motion Start: 10/26/24 09:10 Freq: Status: Active Protocol: Document 10/26/24 09:41 KW (Rec: 10/26/24 12:50 KW Laptop) Hip Goniometric Range of Motion Hip Right Hip ROM WFL No Testing Position Supine Flexion w/Knee 120 Flexed Straight Leg Raise 90 Internal Rotation 15 External Rotation 25 Knee Goniometric Range of Motion Knee Right Knee ROM WFL No Patient Position Supine Flexion Active ( 110 degrees) Flexion Passive ( 112 degrees) Extension Active ( 0 degrees) Comments pain with OP R flexion PT-OP-L Special Tests Start: 10/26/24 09:10 Freq: Status: Active Protocol: Document 10/26/24 09:41 KW (Rec: 10/26/24 12:50 KW Laptop) Special Tests Knee Special Tests Patellar Grind Test Test Results (+) R Comments stiffness prox fib head PT-OP-M Strength Start: 10/26/24 09:10 Freq: Status: Active Protocol: Document 10/26/24 09:41 KW (Rec: 10/26/24 12:50 KW Laptop) Hip Strength Hip Manual Muscle Testing Right Flexion (L2) 3+ Fair+ Extension (S1) 3+ Fair+ Abduction 3+ Fair+ External Rotation 4- Good- Internal Rotation 4- Good- Knee Strength Knee Manual Muscle Testing Right Flexion (S2) 4- Good- Extension (L3) 4- Good- PT-OP-Q Treatments Start: 10/26/24 09:10 Freq: Status: Active Protocol: Document 11/15/24 10:47 YARDER (Rec: 11/15/24 11:33 YARDER Laptop) Therapeutic Exercises Supine Exercises Adductor Stretch Supine Exercise Name butterfly stretch Side bilateral Equipment Used bolsters added under sides of knees for support Reps/Minutes 5 min SAQ Side right Equipment Used bolster Reps/Minutes 10x2 Standing Exercises HS Stretch Standing Exercise on 12 step Name Side right Reps/Minutes 1 min x3 Comments neutral and in ER for medial HS targetting Quad Stretch Standing Exercise Propped on chair Name Side right Equipment Used chair and wall to support on Reps/Minutes 1 min x2 Manual Therapy Treatment Consent Patient gave verbal Yes consent for manual treatment Soft Tissue Mobilization Quad Body Location R quad Mobilization Type Myofascial Release,Rolling Intensity/Depth Moderate Body Position Supine Comments distal end of quad, quad tendon. Tender to STM and stretching with multiple trigger points noted throughout quad PT-OP-T Assessment and Plan Start: 10/26/24 09:10 Freq: Status: Active Protocol: Document 11/15/24 10:47 YARDER (Rec: 11/15/24 11:33 YARDER Laptop) Physical Therapy Assessment Impairments Impairments Activity Tolerance,Balance,Functional Activities, Functional Mobility,Gait,Pain,Posture,ROM,Strength, Transfers Goals One Impairment lack of HEP Short Term Goal (STG patient is independent and compliance with HEP ) STG Duration 6 weeks Three Impairment impaired gait Short Term Goal (STG patient ambulates with B trekking poles or FWW for ) safety STG Duration 6 weeks Two Impairment impaired balance Short Term Goal (STG patient is able to hold modified tandem stance R/L and ) L/R for 20 sec patient is able to hold narrow YULY 20 sec STG Duration 6 weeks Assessment Summary Assessment Focus this session on R quad strengthening and stretching and B adductor stretching to reduce knee pain while performing balance HEP. Pt tolerated well, continue skilled PT intervention to continue progressing towards goals. Physical Therapy Plan Frequency and Duration Frequency of 2x/Week Treatment Duration of 8 treatment (weeks) Plan of Care Start 10/26/24 Date Plan of Care End 12/26/24 Date Therapeutic Interventions Therapeutic Balance Training,Gait Training,Home Exercise Program, Interventions Joint Mobilizations,Manual Therapy,Neuromuscular Re- education,Orthotic/Prosthetic Management,Patient/ Caregiver Education,Self-Care/Home Management,Soft Tissue Mobilization,Taping,Therapeutic Activities, Therapeutic Exercises Modalities Cold Pack/Ice Massage,Electric Stimulation,Hot Packs, Ultrasound Next Visit Focus/Plan Next Note Type Treatment Note Next Visit Plan shuttle with TB around knees, standing balance exercises, B glute med strengthening
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
--- NOTE | 2024-11-22 10:37 | PT.OTN ---
Current Diagnoses Pain in left shoulder (11/22/24) Pain in right knee (11/22/24) Low back pain, unspecified (11/22/24) Physical Therapy Treatment Note PT-OP-A Visit Information Start: 10/26/24 09:10 Freq: Status: Active Protocol: Document 11/22/24 09:50 AB (Rec: 11/22/24 10:36 AB Laptop) Out-Patient Physical Therapy Visit Information Visit Information Visit Type Treatment Note Visit Start Time 09:51 Visit Stop Time 10:33 Visit Number 9 Number of HUSKER OPERATOR Visits 2 PT-OP-B Current Condition Start: 10/26/24 09:10 Freq: Status: Active Protocol: Document 10/26/24 09:41 KW (Rec: 10/26/24 12:50 KW Laptop) Current Condition History of Current Condition Onset Date 2022 Current Complaints R knee pain, L shoulder pain History of Current 88 yo female, cues to PT with co R lateral knee pain Condition that impacts her mobility and balance. Her grand daughter is getting December 17 and patients daughter wanted her to come for PT to see if she could get stronger for the wedding. Also c/o L shoulder pain that has mostly resolved with the nicer weather and a course of oral steroids for arthritis. R lateral knee pain started with a cat bite back in 2022, sp I&D. No recent falls. Lives independently, drives. Patient attends chair [facility] at [facility]. No other exercise. Prior Treatments and x-rays in chart, OA R knee L shoulder Tests PT-OP-C Subjective Start: 10/26/24 09:10 Freq: Status: Active Protocol: Document 11/22/24 09:50 AB (Rec: 11/22/24 10:36 AB Laptop) OP-PT Subjective Patient Comments Patient Comments Patient reports she didn't do her exercises yesterday, comments she wore a brace to [employer], brought the walking stick but didn't use it as she had the brace. Patient reports the brace was used on R knee. Patient reports her feet have been numb a lot, walked barefoot this morning, which helps. Patient reports exercises at home don't make her more numb, complains ex in clinic makes her feet more numb. PT-OP-D Balance Start: 10/26/24 09:10 Freq: Status: Active Protocol: Document 10/26/24 09:41 KW (Rec: 10/26/24 12:50 KW Laptop) OP-PT Balance Assessment Standing Balance Static Standing Fair Balance Ability Dynamic Standing Poor Balance Ability Device Used chair, cane Standing Balance unable to get into tandem and hold 10 sec R/L or L/R Comments Balance Tests Romberg Romberg neg Single Limb Standing Single Limb- Right 3 Single Limb- Left 3 Tandem Tandem Standing <5 Roche Balance Assessment Evaluation Sitting to Standing Independent w/Hands Ability Unsupported Stance Safely- 2 minutes Sitting Unsupported, Safely- 2 minutes Feet on Floor Standing to Sitting Assist, Control w/Hands Ability Transfer Ability Safely, Hand Use Unsupported Stance- Supervision, 10 seconds Eyes Closed Unsupported Stance- Independent, 1 minute Eyes Open Reaching Forward Safely, 5 inches Standing Pick- Up Object From Supervision Floor Look Behind Shoulder Turns Sideways Only - Standing Turning 360 Degrees Turns slowly, but safely Unsupported Stance, Assist to Prevent Fall Alternating Feet on Stair Unsupported Tandem Balance Lost- Step/Stand Stance Unilateral Leg Unable,assist to not fall Stance Total Score Roche Total Score ( 34 out of 56 points) Roche Impairment 20 to 39% Impaired (Score 34-44) Rating Gonzalez Fall Scale Copyright Permission PT-OP-E Functional Tests Start: 10/26/24 09:10 Freq: Status: Active Protocol: Document 10/26/24 09:41 KW (Rec: 10/26/24 12:50 KW Laptop) Functional Tests Timed Up and Go (TUG) Score 15 Comments unsteady PT-OP-F Manual Assessment Start: 10/26/24 09:10 Freq: Status: Active Protocol: Document 10/26/24 09:41 KW (Rec: 10/26/24 12:50 KW Laptop) Manual Assessments Joint Mobility Assessment Joint Mobility B hip joint mobility: hypermobile Assessment R knee: pain with overpressure flexion R patella adherence, stiffness with inferior mobs PT-OP-G Mobility & Gait Start: 10/26/24 09:10 Freq: Status: Active Protocol: Document 10/26/24 09:41 KW (Rec: 10/26/24 12:50 KW Laptop) OP Mobility Evaluation Transfers Sit to Stand use of hands Bed to Chair use of hands Transfers OP Gait Assessment Gait Gait Assistance Independent Required: Distance (Feet) 500 Assistive Devices Assistive Device Straight Cane Gait Deviations General Gait Pattern Antalgic,Decreased Stride Length,Decreased Feet Clearance,Lateral Trunk Lean,Wide Based Gait Comments Gait Comments toe out gait, significant B foot pronation in flats, significant femoral anteversion R PT-OP-J Posture/Palpation/Skin Start: 10/26/24 09:10 Freq: Status: Active Protocol: Document 10/26/24 09:41 KW (Rec: 10/26/24 12:50 KW Laptop) Posture Evaluation Position Standing Evaluation View Lateral Hip Posture (R) Internally Rotated Knee Posture (R) Genu Valgus Patellar Posture (R) Superior Ankle/Foot Posture (L) Pronated,(R) Pronated Foot Arch (L) Low Arch,(R) Low Arch PT-OP-K Range of Motion Start: 10/26/24 09:10 Freq: Status: Active Protocol: Document 10/26/24 09:41 KW (Rec: 10/26/24 12:50 KW Laptop) Hip Goniometric Range of Motion Hip Right Hip ROM WFL No Testing Position Supine Flexion w/Knee 120 Flexed Straight Leg Raise 90 Internal Rotation 15 External Rotation 25 Knee Goniometric Range of Motion Knee Right Knee ROM WFL No Patient Position Supine Flexion Active ( 110 degrees) Flexion Passive ( 112 degrees) Extension Active ( 0 degrees) Comments pain with OP R flexion PT-OP-L Special Tests Start: 10/26/24 09:10 Freq: Status: Active Protocol: Document 10/26/24 09:41 KW (Rec: 10/26/24 12:50 KW Laptop) Special Tests Knee Special Tests Patellar Grind Test Test Results (+) R Comments stiffness prox fib head PT-OP-M Strength Start: 10/26/24 09:10 Freq: Status: Active Protocol: Document 10/26/24 09:41 KW (Rec: 10/26/24 12:50 KW Laptop) Hip Strength Hip Manual Muscle Testing Right Flexion (L2) 3+ Fair+ Extension (S1) 3+ Fair+ Abduction 3+ Fair+ External Rotation 4- Good- Internal Rotation 4- Good- Knee Strength Knee Manual Muscle Testing Right Flexion (S2) 4- Good- Extension (L3) 4- Good- PT-OP-Q Treatments Start: 10/26/24 09:10 Freq: Status: Active Protocol: Document 11/22/24 09:50 AB (Rec: 11/22/24 10:36 AB Laptop) Gym Equipment Shuttle Recovery unilateral squat Details cued knee alignment Resistance 37 # L 25 # R ( trial 37 # not qiana) Shuttle Recovery Stable Platform Reps/Time x15 Bilateral Squats Resistance 62# teal Shuttle Recovery Stable Platform Reps/Time 1x15 with level one band tied above knees Shuttle Balance red Details normal YULY Comments cga Therapeutic Exercises Sitting Exercises seated hip abd with band Sitting Exercise HEP Name Resistance [place] level 4 Reps/Minutes one min X one Comments HEP review, performs correctly without VC Standing Exercises Hip Ext Side bilateral Resistance level 4 band above knees Equipment Used // bars Reps/Minutes x15 Comments monitored for pain Hip Abd Side bilateral Resistance level4 band tied above knees Equipment Used // bars Reps/Minutes X15 Comments repeated verbal cues to avoid toeing out Neuro Re-Education Treatment Balance Activities step up taps to 6 inch step Surface [id number] 6 inch step Reps/Duration X 10 Comments CGA tandem stepping Details hand above bars 0n initiation, CGA Reps/Duration fwd 10 feet X 6 Comments MOD tandem PT-OP-T Assessment and Plan Start: 10/26/24 09:10 Freq: Status: Active Protocol: Document 11/22/24 09:50 AB (Rec: 11/22/24 10:36 AB Laptop) Physical Therapy Assessment Goals One Impairment lack of HEP Short Term Goal (STG patient is independent and compliance with HEP ) 11/22/2024 Patient reports she does her ex every day, but also reports she didn't due her ex on Thursday or yesterday( due to yard work yesterday.) STG Duration 6 weeks Three Impairment impaired gait Short Term Goal (STG patient ambulates with B trekking poles or FWW for ) safety 11/22/2024 Patient reports she uses her trekking poles when goes out, but comments she parked the poles at the entrance of the sikhism Thursday and moves around making coffee, carrying items without the poles. Two Impairment impaired balance Short Term Goal (STG patient is able to hold modified tandem stance R/L and ) L/R for 20 sec patient is able to hold narrow YULY 20 sec 11/22/2024 Mod tandem grossly 2 inches apart 3 -5 sec, Narrow YULY 20 sec with forefoot 2.5 inch apart ( pt comments knees are touching. STG Duration 6 weeks Assessment Summary Assessment Patient reports she does not want any more appointments after November 24, comments she has to get ready for the wedding, (Patient made aware she would need a new MD order if plan ends ) comments this takes up her whole week she is physically and mentally tired. Patient unable to position in full tandem and mod tandem continues to be limited. Physical Therapy Plan Frequency and Duration Frequency of 2x/Week Treatment Duration of 8 treatment (weeks) Plan of Care Start 10/26/24 Date Plan of Care End 12/26/24 Date Next Visit Focus/Plan Next Note Type Discharge Summary Next Visit Plan Possibly discharge as patient comments she does not want more appointments after November 24.
--- NOTE | 2024-11-24 13:12 | PT.OTN ---
Current Diagnoses Pain in left shoulder (11/24/24) Pain in right knee (11/24/24) Low back pain, unspecified (11/24/24) Physical Therapy Treatment Note PT-OP-A Visit Information Start: 10/26/24 09:10 Freq: Status: Active Protocol: Document 11/24/24 10:00 POLYSTYRENE MOLDING MACHINE TENDER (Rec: 11/24/24 10:47 POLYSTYRENE MOLDING MACHINE TENDER Laptop) Out-Patient Physical Therapy Visit Information Visit Information Visit Type Discharge Summary Visit Start Time 09:52 Visit Stop Time 10:33 Visit Number 10 Number of BEATER OUT Visits 0 PT-OP-B Current Condition Start: 10/26/24 09:10 Freq: Status: Active Protocol: Document 10/26/24 09:41 KW (Rec: 10/26/24 12:50 KW Laptop) Current Condition History of Current Condition Onset Date 2022 Current Complaints R knee pain, L shoulder pain History of Current 88 yo female, cues to PT with co R lateral knee pain Condition that impacts her mobility and balance. Her grand daughter is getting December 17 and patients daughter wanted her to come for PT to see if she could get stronger for the wedding. Also c/o L shoulder pain that has mostly resolved with the nicer weather and a course of oral steroids for arthritis. R lateral knee pain started with a cat bite back in 2022, sp I&D. No recent falls. Lives independently, drives. Patient attends [facility] [employer] at [facility]. No other exercise. Prior Treatments and x-rays in chart, OA R knee L shoulder Tests PT-OP-C Subjective Start: 10/26/24 09:10 Freq: Status: Active Protocol: Document 11/24/24 10:00 POLYSTYRENE MOLDING MACHINE TENDER (Rec: 11/24/24 10:47 POLYSTYRENE MOLDING MACHINE TENDER Laptop) OP-PT Subjective Patient Comments Patient Comments Pt reports feeling woozy today and needing support in addition to her walking stick to amb into session today. She reports this happens sometimes and is related to her eyes. BP 149/84 HR 63 which BP is a little elevated for her. Pt is feeling overwhelmed with granddaughter's wedding coming up and is wanting to D/ C from PT. Pt does report she practiced her HEP this morning and her knee did not hurt during sit<>stands and feels corner balance exercises are much better compared to how she felt after last session. PT-OP-D Balance Start: 10/26/24 09:10 Freq: Status: Active Protocol: Document 11/24/24 10:00 POLYSTYRENE MOLDING MACHINE TENDER (Rec: 11/24/24 10:47 POLYSTYRENE MOLDING MACHINE TENDER Laptop) Balance Tests Roche Balance Test Roche Impairment 20 to 39% Impaired (Score 34-44) Rating Single Limb Standing Single Limb- Right 5 Single Limb- Left 3 Tandem Tandem Standing average R 5s, L 5s Roche Balance Assessment Evaluation Sitting to Standing Independent w/Hands Ability Unsupported Stance Safely- 2 minutes Sitting Unsupported, Safely- 2 minutes Feet on Floor Standing to Sitting Assist, Control w/Hands Ability Transfer Ability Safely, Hand Use Unsupported Stance- Supervision, 10 seconds Eyes Closed Unsupported Stance- Independent, 1 minute Eyes Open Reaching Forward Safely, 5 inches Standing Pick- Up Object From Supervision Floor Look Behind Shoulder Turns Sideways Only - Standing Turning 360 Degrees Turns slowly, but safely Unsupported Stance, Assist to Prevent Fall Alternating Feet on Stair Unsupported Tandem Balance Lost- Step/Stand Stance Unilateral Leg Unable,assist to not fall Stance Total Score Roche Total Score ( 34 out of 56 points) Roche Impairment 20 to 39% Impaired (Score 34-44) Rating PT-OP-E Functional Tests Start: 10/26/24 09:10 Freq: Status: Active Protocol: Document 10/26/24 09:41 KW (Rec: 10/26/24 12:50 KW Laptop) Functional Tests Timed Up and Go (TUG) Score 15 Comments unsteady PT-OP-F Manual Assessment Start: 10/26/24 09:10 Freq: Status: Active Protocol: Document 10/26/24 09:41 KW (Rec: 10/26/24 12:50 KW Laptop) Manual Assessments Joint Mobility Assessment Joint Mobility B hip joint mobility: hypermobile Assessment R knee: pain with overpressure flexion R patella adherence, stiffness with inferior mobs PT-OP-G Mobility & Gait Start: 10/26/24 09:10 Freq: Status: Active Protocol: Document 10/26/24 09:41 KW (Rec: 10/26/24 12:50 KW Laptop) OP Mobility Evaluation Transfers Sit to Stand use of hands Bed to Chair use of hands Transfers OP Gait Assessment Gait Gait Assistance Independent Required: Distance (Feet) 500 Assistive Devices Assistive Device Straight Cane Gait Deviations General Gait Pattern Antalgic,Decreased Stride Length,Decreased Feet Clearance,Lateral Trunk Lean,Wide Based Gait Comments Gait Comments toe out gait, significant B foot pronation in flats, significant femoral anteversion R PT-OP-J Posture/Palpation/Skin Start: 10/26/24 09:10 Freq: Status: Active Protocol: Document 10/26/24 09:41 KW (Rec: 10/26/24 12:50 KW Laptop) Posture Evaluation Position Standing Evaluation View Lateral Hip Posture (R) Internally Rotated Knee Posture (R) Genu Valgus Patellar Posture (R) Superior Ankle/Foot Posture (L) Pronated,(R) Pronated Foot Arch (L) Low Arch,(R) Low Arch PT-OP-K Range of Motion Start: 10/26/24 09:10 Freq: Status: Active Protocol: Document 10/26/24 09:41 KW (Rec: 10/26/24 12:50 KW Laptop) Hip Goniometric Range of Motion Hip Right Hip ROM WFL No Testing Position Supine Flexion w/Knee 120 Flexed Straight Leg Raise 90 Internal Rotation 15 External Rotation 25 Knee Goniometric Range of Motion Knee Right Knee ROM WFL No Patient Position Supine Flexion Active ( 110 degrees) Flexion Passive ( 112 degrees) Extension Active ( 0 degrees) Comments pain with OP R flexion PT-OP-L Special Tests Start: 10/26/24 09:10 Freq: Status: Active Protocol: Document 10/26/24 09:41 KW (Rec: 10/26/24 12:50 KW Laptop) Special Tests Knee Special Tests Patellar Grind Test Test Results (+) R Comments stiffness prox fib head PT-OP-M Strength Start: 10/26/24 09:10 Freq: Status: Active Protocol: Document 10/26/24 09:41 KW (Rec: 10/26/24 12:50 KW Laptop) Hip Strength Hip Manual Muscle Testing Right Flexion (L2) 3+ Fair+ Extension (S1) 3+ Fair+ Abduction 3+ Fair+ External Rotation 4- Good- Internal Rotation 4- Good- Knee Strength Knee Manual Muscle Testing Right Flexion (S2) 4- Good- Extension (L3) 4- Good- PT-OP-Q Treatments Start: 10/26/24 09:10 Freq: Status: Active Protocol: Document 11/24/24 10:00 POLYSTYRENE MOLDING MACHINE TENDER (Rec: 11/27/24 13:03 POLYSTYRENE MOLDING MACHINE TENDER Laptop) Therapeutic Exercises Sitting Exercises seated hip abd with band Resistance royal colton level 4 Reps/Minutes one min X one Neuro Re-Education Treatment Balance Activities Roche Comments 36/56 tandem stepping Comments multiple trials with semi tandem ~2 apart, average 5s RLE in back and 5s LLE in back SLS Comments multiple trials, average RLE 5s, LLE 3s PT-OP-T Assessment and Plan Start: 10/26/24 09:10 Freq: Status: Active Protocol: Document 11/24/24 10:00 POLYSTYRENE MOLDING MACHINE TENDER (Rec: 11/24/24 10:47 POLYSTYRENE MOLDING MACHINE TENDER Laptop) Physical Therapy Assessment Goals One Impairment lack of HEP Short Term Goal (STG patient is independent and compliance with HEP ) 11/22/2024 Patient reports she does her ex every day, but also reports she didn't due her ex on Thursday or yesterday( due to yard work yesterday.) 11/24 Pt reports she has been practicing HEP almost every morning depending on how woozy she is feeling. STG Duration Status: 11/24 MET Three Impairment impaired gait Short Term Goal (STG patient ambulates with B trekking poles or FWW for ) safety 11/22/2024 Patient reports she uses her trekking poles when goes out, but comments she parked the poles at the entrance of the [employer] Thursday and moves around making coffee, carrying items without the poles. 11/24: walks into session using single trekking pole STG Duration Status 11/24: Partially met Two Impairment impaired balance Short Term Goal (STG patient is able to hold modified tandem stance R/L and ) L/R for 20 sec patient is able to hold narrow YULY 20 sec 11/22/2024 Mod tandem grossly 2 inches apart 3 -5 sec, Narrow YULY 20 sec with forefoot 2.5 inch apart ( pt comments knees are touching. 11/24 Modified tandem stance grossly 2 apart ~5s, narrow YULY ~2 mins with spv STG Duration Status 11/24: Partially met Assessment Summary Assessment Pt requests discharge d/t having too many things in her personal life overwhelming her right now such as upcoming granddaughter's wedding and not feeling like PT is helping her despite encouragement. Pt demonstrates slight improvement in Roche balance score and has met 1/3 goals and partially met 2/3 goals but remains a high fall risk. Pt encouraged to continue working on balance HEP to continue improving balance ind at home and using B trekking poles during gait for safety. Physical Therapy Plan Discharge Physical Therapy Discharge Reasons Patient Request Discharge Comments See assessment
== END 2024-11-28 09:36 | disposition home or self-care (01) ==
LOC: PHYS 09:45
PROVIDERS: Family Provider Internal Medicine; PCP Family Medicine; Referring Provider Family Medicine; Visit Provider Family Medicine
DX: M25.512 Pain in left shoulder (principal); M54.50 Low back pain, unspecified; M25.561 Pain in right knee
CPT/HCPCS: 97110; 97112; 97140; 97162

== ENCOUNTER → 2024-12-02 08:09 | Outpatient (CLI) | payer MEDICARE, SELFPAY ==
--- NOTE | 2024-12-02 08:10 | DI.RAD.S_ITS ---
PROCEDURE: FL ARHTROGRAM KNEE RT INDICATIONS: pain COMPARISON: [facility], CR, XR KNEE RT 3V, 09/26/2024, 9:06. TECHNIQUE: The indications, alternatives, benefits, risks, and complications of the procedure were explained to the patient. Written informed consent was obtained and placed in the chart. The knee was examined fluoroscopically, and a site chosen for knee joint injection. The skin was prepped and draped in a sterile fashion, and 1% Lidocaine infiltrated from the skin down to the articular surface. A hypodermic needle was then introduced into the joint and iodinated contrast media was instilled to confirm the intra-articular needle tip placement. This was followed by approximately 50 mL dilute solution of a gadolinium containing MR contrast agent. The needle was removed and a bandage was applied. An Kashif wrap was then applied around the knee joint to keep the contrast from collecting in the suprapatellar recess. The patient experienced no complications throughout the procedure and left the fluoroscopic suite in no apparent distress. FINDINGS: Single fluoroscopic spot image demonstrates intra-articular location to injected iodinated contrast. IMPRESSION: Successful fluoroscopically guided administration of dilute Gadolinium solution into the knee joint for MR arthrogram. Approved by: Bridger Short M.D. on 12/02/2024 at 17:03
--- NOTE | 2024-12-02 08:10 | DI.MRI.S_ITS ---
PROCEDURE: MR KNEE RT W CON INDICATIONS: pain TECHNIQUE: After the administration of 50 mL of dilute intra-articular Gadolinium contrast, sagittal T1 spin echo with fat saturation and PD fast spin echo with fat saturation, coronal T1 spin echo with and without fat saturation, coronal T2 fast spin echo with fat saturation, axial PD fast spin echo with fat saturation through the knee. COMPARISON: [facility], CR, XR KNEE RT 3V, 09/26/2024, 9:06. [facility], RF, FL ARHTROGRAM KNEE RT, 12/02/2024, 7:37. FINDINGS: Image quality: Excellent. Anterior cruciate ligament: Intact. Posterior cruciate ligament: Intact. Medial collateral ligament: Intact. Lateral collateral ligament: Intact. Medial meniscus: Mild intrasubstance degeneration in the posterior horn and body of the medial meniscus with mild irregularity at the undersurface that may represent degenerative tearing. Lateral meniscus: There is diffuse complex degenerative tearing and maceration of the lateral meniscus with extrusion beyond the femorotibial joint line. Medial and lateral tendons: The semimembranosus tendon insertions appear intact. Visualized portions of the pes anserinus tendons appear normal. The popliteus tendon is intact. Iliotibial band appears normal. Anterior structures: Mild patellar tendinosis. The distal quadriceps tendon is intact. No patellar subluxation. No femoral trochlear dysplasia or ventral trochlear prominence. No edema in the infrapatellar fat pad. Bones: No bone marrow contusions or fractures. Medial femorotibial cartilage: Moderate partial-thickness cartilage irregularity in the weight-bearing portion of the medial compartment with mild subchondral edema and subchondral cystic changes at the posterior medial tibial plateau as well as marginal osteophytes. Lateral femorotibial cartilage: Diffuse full thickness cartilage loss throughout the weight-bearing portion of the lateral femorotibial compartment with subchondral edema, subchondral cystic changes, marginal osteophytes, and remodeling of the articular surfaces. Patellofemoral cartilage: Moderate partial-thickness cartilage irregularity. Soft tissues: A 10 mm intra-articular loose body is seen in the suprapatellar recess. Moderate communicating medial popliteal cyst with differential contrast that may represent proteinaceous fluid or synovial hypertrophy. The visualized musculature is age-appropriate in bulk. IMPRESSION: 1. Diffuse full thickness cartilage loss throughout the lateral femorotibial compartment with subchondral cystic changes and edema and remodeling of the articular surfaces. 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 2. Complex degenerative tearing and maceration of the lateral meniscus. 3. Intrasubstance degeneration in the medial meniscus with a suspected mild undersurface tearing at the posterior horn. 4. Cruciate and collateral ligaments are intact. No acute trabecular bone injury. 5. Mild patellar tendinosis. 6. Loose body in the suprapatellar recess measures up to 10 mm. Moderate communicating medial popliteal cyst with a small amount of synovial hypertrophy or proteinaceous fluid. Approved by: Bridger Short M.D. on 12/03/2024 at 8:04
[2024-12-02] MEDS: SODIUM CHLORIDE 0.9 % 20 ML VIAL IV ×2 (09:36→09:37)
[2024-12-02] MEDS: LIDOCAINE 1% 20 ML INJ (09:36)
== END ==
PROVIDERS: Family Provider Internal Medicine; PCP Family Medicine; Referring Provider Family Medicine; Visit Provider Family Medicine
DX: S83.271A Complex tear of lateral meniscus, current injury, right knee, initial encounter (principal); M94.261 Chondromalacia, right knee; M71.21 Synovial cyst of popliteal space [Baker], right knee; M23.41 Loose body in knee, right knee; M25.561 Pain in right knee
CPT/HCPCS: 27369; 73580; 73722; A9579; Q9967